=== PATIENT | female | born 1950 | race Caucasian/White ===

== ENCOUNTER 2016-05-22 15:41 | Emergency (ER) | payer OTHER ==
[~2016-05-22 15:41] MED LIST: /ONDA4TA PO; ALLE180T33 PO; ALRE0.5S OU; ATEN50TA2 PO; ATIV0.5T PO; BACLOFEN PO; BUME2TAB; CALC1CAP31 PO; CALCCHW12 PO; CARAFATE PO; CENTTAB36 PO; COMMENT; DOCU240C PO; EX-L5TAB; FERR325T; FERR325T3 PO; FLAX SEED; INSULIN LANTUS SQ; LACTOBACILLUS; LEVA500T; LEVOTAB10 PO; LORAPOW30; MAG CITRATE PO; MAGN250T; NITR4TASL SL; PERC5TAB8; POTA20TA2 PO; PRED1TA; PRIL20CA PO; REST0.05 OU; SALI0.653; SIMV40TA2 PO; SYNT50TA PO; SYST0.4D2 OU; SYSTSOL11 OU; THERGRAN; TRAM50TA2 PO; TRAMADOL; TRAZ100T4 PO; VENL75TA2 PO; VESI10TA PO; VICTOZA SQ; VIT D2 PO; VITAMIN C; [UNRECOGNIZED DRUG - OTHER] PO
[2016-05-22] MEDS ORDERED: NITROGLYCERIN 0.4 MG SUBL TABLET As Ordered ONE (16:51)
[2016-05-22] MEDS ORDERED: ASPIRIN 81 MG CHEW TABLET As Ordered ONE (16:51)
[2016-05-22 17:11] LABS: ANION GAP 7 MEQ/L (8-16); BLOOD UREA NITROGEN 18 MG/DL (7-18); CALCIUM LEVEL 9.1 MG/DL (8.8-10.2); CARBON DIOXIDE LEVEL 31 MEQ/L (21-32); CHLORIDE LEVEL 104 MEQ/L (98-107); CREATININE FOR GFR 1.36 MG/DL (0.55-1.02); GLOMERULAR FILTRATION RATE 41.7 (>45); GLUCOSE, FASTING 188 MG/DL (80-110); SODIUM LEVEL 142 MEQ/L (136-145)
--- NOTE | 2016-05-22 17:17 | REP ---
Clinical: Acute chest pain . Comparison: 02/15/2012 . Technique: PA and lateral. Findings: The mediastinum and cardiac silhouette are normal. The lung rosales are clear and without acute consolidation, effusion, or pneumothorax. The skeletal structures are intact and normal. Impression: 1. No acute cardiopulmonary process. Signed by Joe Perez MD 05/22/2016 05:08 P
[2016-05-22 17:44] LABS: MEAN CORPUSCULAR HEMOGLOBIN 33.4 pg (27.0-33.0); MEAN CORPUSCULAR VOLUME 95.5 fl (80.0-96.0); PLATELET COUNT, AUTOMATED 221 k/mm3 (150-450); RED CELL DISTRIBUTION WIDTH 14.1 % (11.5-14.5); WHITE BLOOD COUNT 7.5 K/mm3 (4.0-10.0)
[2016-05-22 17:53] LABS: BASOPHILS 1 % (0-4); EOSINOPHILS 6 % (0-5)
--- NOTE | 2016-05-22 20:25 | ECGEPIP ---
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
[2016-05-22] MEDS ORDERED: NITROFURANTOIN (MACROBID) 100 MG CAP As Ordered ONE (22:05)
--- NOTE | 2016-05-22 23:08 | EDDOCDS ---
Physician Documentation [facility] Name: Ellyn Ambrocio Age: 66 yrs Sex: Female : 1950 Arrival Date: 05/22/2016 Time: 15:41 Bed OBSERVATION Private MD: Marlon Crooks E. Disposition: 05/22/16 22:41 Discharged to Home/Self Care. Impression: Urinary tract infection, site not specified, Chest pain, unspecified. - Condition is Stable. - Discharge Instructions: Nonspecific Chest Pain, Urinary Tract Infection. - Prescriptions for Macrobid 100 mg Oral Capsule - take 100 milligrams by ORAL route every 12 hours for 7 days; 14 capsule. - Medication Reconciliation, Local Pharmacy Hours form. - Follow up: Marlon Crooks; When: 2 - 3 days; Reason: Recheck today's complaints. Follow up: Joe Jackson; When: 2 - 3 days; Reason: Recheck today's complaints. - Problem is new. - Symptoms are resolved. - Notes: You were seen in the ED for burining on urination concerning for urinary tract infection. You may take the antibiotics as written. You also mentioned chest pain. Bloodwork along with EKG of the heart and chest Xray showed no acute findings at this time. 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
Return to the ED for any return of chest pain, trouble breathing, lightheadedness, loss of consciousness or any other concerns. Historical: - Allergies: NSAIDS; IV Dye; Biaxin; Cipro IV; PENICILLINS; Codeine Sulfate; SULFA (SULFONAMIDES); Latex; Prednisone; Levaquin; Clindamycin; Lianne 128; - Home Meds: 1. Ativan 0.5 mg Oral tab 1 tab 3 times per day (Last dose: Unknown) 2. Bumex 2 mg Oral tab 1 tab 2 times per day (Last dose: Unknown) 3. aspirin 81 mg Oral tab 1 tab once daily (Last dose: Unknown) 4. flaxseed oil 1,000 mg oral cap daily (Last dose: Unknown) 5. Acidophilus 1200 Oral cap daily (Last dose: Unknown) 6. Rocaltrol 0.5 mcg Oral cap 1 cap once daily (Last dose: Unknown) 7. simvastatin 40 mg Oral tab 1 tab once daily (Last dose: Unknown) 8. cranberry 500 mg oral cap daily (Last dose: Unknown) 9. Jasmin 180 mg Oral tab 1 tab once daily (Last dose: Unknown) 10. Nasacort AQ 55 mcg Nasal spra 1 spray once daily (Last dose: Unknown) 11. Restasis 0.05 % ophthalmic dpet 1 drop every 12 hours (Last dose: Unknown) 12. Alrex 0.2 % ophthalmic drps 1 drop 4 times per day (Last dose: Unknown) 13. Zofran (as hydrochloride) 4 mg Oral tab 4 mg every 12 hours (Last dose: Unknown) 14. Xyzal 5 mg oral tab 2 tab nightly (Last dose: Unknown) 15. Combivent 18-103 mcg/actuation Inhl aero 2 puffs 4 times per day (Last dose: Unknown) 16. trazodone 100 mg Oral tab 2 tabs 2 times per day (Last dose: Unknown) 17. Synthroid 137 mcg Oral tab 1 tab once daily (Last dose: Unknown) 18. Lantus 25 units AM 90 units PM Sub-Q soln (Last dose: Unknown) 19. Prilosec 40 mg Oral cpDR 1 cap once daily (Last dose: Unknown) 20. Victoza 3-Solis 0.6 mg/0.1 mL (18 mg/3 mL) subcutaneous pnij 0.2 mL once daily (Last dose: Unknown) 21. tramadol 50 mg Oral tab 1 tab every 6 hours (Last dose: Unknown) 22. Vesicare 10 mg oral tab 1 tab once daily (Last dose: Unknown) 23. atenolol 50 mg Oral tab 1 tab once daily (Last dose: Unknown) 24. Effexor 75 mg Oral tab 1 tab 3 times per day (Last dose: Unknown) - PMHx: Depression; Anxiety; AO; Fibromyalgia; GERD; Hypothyroidism; ESRD III; Hypertension; Hypercholesterolemia; Diabetes - IDDM: uncontrolled; umbilical hernia; probable meniere's disease; Sleep Apnea w/ BiPap; Fatty Liver, Non-alchoholic; hepatomegally; Obesity; - PSHx: Hysterectomy; laminectomy L3-4, 4-5; Oophorectomy- bilateral; Tonsillectomy; Cholecystectomy; right and left knee replacement; Colonoscopy; - Social history: Smoking status: Patient states was never smoker of tobacco. No barriers to communication noted, Speaks appropriately for age. - Family history: No immediate family members are acutely ill. - : The pt / caregiver states he / she is not on anticoagulants. Home medication list is obtained from the patient. - Exposure Risk Screening:: None identified. Vital Signs: 05/22 15:44 BP 157 / 85 RA Sitting (auto/reg); Pulse 75; Resp 18; Temp 97.5(O); Pulse Ox 96% on jrd R/A; Weight 151.95 kg / 334.99 lbs (R); Height 5 ft. 8 in. (172.72 cm) (R); Pain 8/10; 16:01 BP 135 / 63 (auto/); lf1 16:04 Pulse 72 MON; Pulse Ox 96% ; lf1 16:16 BP 131 / 60 (auto/); lf1 16:16 Pulse 70 MON; Pulse Ox 91% ; lf1 16:31 BP 128 / 60 (auto/); lf1 16:31 Pulse 70 MON; Pulse Ox 91% ; lf1 16:46 BP 149 / 73 (auto/); lf1 16:46 Pulse 68 MON; Pulse Ox 91% ; lf1 16:54 BP 143 / 67 (auto/); lf1 16:54 Pulse 66 MON; Resp 16; Pulse Ox 91% ; Pain 7/10; lf1 17:16 BP 123 / 59 (auto/); lf1 17:16 Pulse 68 MON; Pulse Ox 93% ; lf1 17:17 BP 123 / 58 (auto/); lf1 17:17 Pulse 68 MON; Resp 16; Pulse Ox 93% ; lf1 17:20 BP 125 / 59; Pulse 68; Pain 4/10; lf1 17:30 Pulse 66 MON; Pulse Ox 92% ; lf1 17:31 BP 126 / 60 (auto/); lf1 17:46 BP 137 / 64 (auto/); lf1 17:46 Pulse 66 MON; Pulse Ox 89% on R/A; lf1 17:54 Pulse 66 MON; Pulse Ox 94% on 2 lpm NC; lf1 19:35 BP 139 / 70 (auto/); mv5 19:35 Pulse 76 MON; mv5 20:05 BP 132 / 60 (auto/); mv5 20:05 Pulse 68 MON; Pulse Ox 96% ; mv5 20:35 BP 128 / 58 (auto/); mv5 20:35 Pulse 68 MON; Pulse Ox 96% ; mv5 21:05 BP 157 / 69 (auto/); mv5 21:05 Pulse 68 MON; Pulse Ox 98% ; mv5 22:09 BP 156 / 74 (auto/); mv5 22:09 Pulse 70 MON; Pulse Ox 92% ; mv5 22:55 Pulse 70 MON; Resp 16; Temp 98.9(O); Pulse Ox 97% ; mv5 15:44 Body Mass Index 50.94 (151.95 kg, 172.72 cm) jrd 17:17 Back pain 7 chest pain 4 lf1 MDM: 15:56 ECG WITH READING ER PHYS+CARDIAG ordered. EDMS 16:12 [place]man/Pulse Ox/q 30 min VS ordered. br1 16:12 IV Saline Lock ordered. br1 16:12 Rhythm Strip to chart ordered. br1 16:12 Undress patient appropriately for examination ordered. br1 16:12 Aspirin 324 mg PO once ordered. br1 16:13 Basic Metabolic Profile Ordered. EDMS 16:13 CBC with Diff Ordered. EDMS 16:13 Cardiac Injury Profile Ordered. EDMS 16:13 Troponin Ordered. EDMS 16:13 Urinalysis Ordered. EDMS 16:13 Urine Culture Ordered. EDMS 16:13 Chest, 2 View (pa\E\lat) Ordered. EDMS 16:22 Nitrostat 0.4 mg Sublingual once ordered. br1 16:39 Financial registration complete. gjb 17:05 [facility] Payment Agreement was scanned into [employer] and attached to record. gjb 17:35 Basic Metabolic Profile Reviewed. br1 17:35 Cardiac Injury Profile Reviewed. br1 17:35 Troponin Reviewed. br1 17:47 DIFFERENTIAL NO CHARGE Ordered. EDMS 17:57 CBC with Diff Reviewed. br1 17:57 PLATELET ESTIMATE Reviewed. br1 17:57 Chest, 2 View (pa\E\lat) Reviewed. br1 17:58 Repeat EKG (put time details section) ordered. br1 17:58 Redraw CIP &Troponin (put time in details section) ordered. br1 17:58 Admit to ED Observation status ordered. br1 18:00 Admit to ED Observation status complete. mt4 18:07 ECG WITH READING ER PHYS ordered. EDMS 18:07 CARDIAC MARKER PANEL Ordered. EDMS 18:13 Redraw CIP &Troponin (put time in details section) complete. mt4 18:13 Repeat EKG (put time details section) complete. mt4 21:57 Urinalysis Reviewed. br1 21:57 EKG-ADULT Reviewed. br1 21:58 Nitrofurantoin 100 mg PO once ordered. br1 22:21 CARDIAC MARKER PANEL Reviewed. br1 Administered Medications: 16:58 Drug: Aspirin 324 mg [aspirin 81 mg chewable tablet (4 tabs)] Route: PO; lf1 16:58 Drug: Nitrostat 0.4 mg [Nitrostat 0.4 mg sublingual tablet (1 tabs)] {Note: 143/67 HR lf1 70.} Route: Sublingual; 17:20 Follow up: BP 125 / 59; Pulse 68 bpm; Pain 4/10 Adult; Response: No Adverse Reaction; lf1 No significant change. 22:10 Drug: Nitrofurantoin 100 mg [nitrofurantoin macrocrystal 50 mg capsule (2 caps)] Route: mv5 PO; 22:59 Follow up: Response: No Adverse Reaction mv5 Signatures: Dispatcher [employer] EDMS Wolfgang Malik MD MD br1 Mimi Ashley mt4 Rudy Traylor, RN RN ml6 Kay Bondsb Anupama Christina RN RN mv5 Mayte Nguyen RN lf1 The chart was reviewed and I authenticate all verbal orders and agree with the evaluation and treatment provided.Attachments: 17:05 [facility] Payment Agreement beth [email or web address]
--- NOTE | 2016-05-22 23:08 | EDDOCDS ---
[facility] Name: Ellyn Ambrocio Age: 66 yrs Sex: Female : 1950 Arrival Date: 05/22/2016 Time: 15:41 Bed OBSERVATION Private MD: Marlon Crooks E. Diagnosis: Urinary tract infection, site not specified;Chest pain, unspecified Presentation: 05/22 15:56 Presenting complaint: Patient states: states chest pain and upper back pain since ml6 . Aspirin was not taken prior to arrival. Adult Sepsis Screening: The patient does not have new or worsening altered mentation. Patient's respiratory rate is less than 22. Systolic blood pressure is greater than 100. Patient has a qSOFA score of 0- Negative Sepsis Screen. Suicide/Homicide risk assessment- the patient denies having any suicidal and/or homicidal ideations and does not present with any other emotional, behavioral or mental health complaints. Status: Patient is not a mechanical service technician or dependent. Transition of care: patient was not received from another setting of care. 15:56 Acuity: JOSELO Level 3 ml6 15:56 Method Of Arrival: Walkin/Carried/Asstd ml6 Triage Assessment: 15:56 General: Appears in no apparent distress, Behavior is anxious. Pain: Location: back and ml6 chest Pain currently is 6 out of 10 on a pain scale. Pain does not radiate. Quality of pain is described as sharp, Pain began 2-3 days ago Is continuous. HIV screening NA for this visit Offered previously. Cardiovascular: Capillary refill < 3 seconds is brisk in bilateral fingers toes Heart tones S1 S2 present Edema is absent. Pulses are all present. Chest pain is described as mild, quality is stabbing, is located in anterior chest wall radiates back episodes are continuous began 3-4 days. Respiratory: No deficits noted. Historical: - Allergies: NSAIDS; IV Dye; Biaxin; Cipro IV; PENICILLINS; Codeine Sulfate; SULFA (SULFONAMIDES); Latex; Prednisone; Levaquin; Clindamycin; Lianne 128; - Home Meds: 1. Ativan 0.5 mg Oral tab 1 tab 3 times per day (Last dose: Unknown) 2. Bumex 2 mg Oral tab 1 tab 2 times per day (Last dose: Unknown) 3. aspirin 81 mg Oral tab 1 tab once daily (Last dose: Unknown) 4. flaxseed oil 1,000 mg oral cap daily (Last dose: Unknown) 5. Acidophilus 1200 Oral cap daily (Last dose: Unknown) 6. Rocaltrol 0.5 mcg Oral cap 1 cap once daily (Last dose: Unknown) 7. simvastatin 40 mg Oral tab 1 tab once daily (Last dose: Unknown) 8. cranberry 500 mg oral cap daily (Last dose: Unknown) 9. Jasmin 180 mg Oral tab 1 tab once daily (Last dose: Unknown) 10. Nasacort AQ 55 mcg Nasal spra 1 spray once daily (Last dose: Unknown) 11. Restasis 0.05 % ophthalmic dpet 1 drop every 12 hours (Last dose: Unknown) 12. Alrex 0.2 % ophthalmic drps 1 drop 4 times per day (Last dose: Unknown) 13. Zofran (as hydrochloride) 4 mg Oral tab 4 mg every 12 hours (Last dose: Unknown) 14. Xyzal 5 mg oral tab 2 tab nightly (Last dose: Unknown) 15. Combivent 18-103 mcg/actuation Inhl aero 2 puffs 4 times per day (Last dose: Unknown) 16. trazodone 100 mg Oral tab 2 tabs 2 times per day (Last dose: Unknown) 17. Synthroid 137 mcg Oral tab 1 tab once daily (Last dose: Unknown) 18. Lantus 25 units AM 90 units PM Sub-Q soln (Last dose: Unknown) 19. Prilosec 40 mg Oral cpDR 1 cap once daily (Last dose: Unknown) 20. Victoza 3-Solis 0.6 mg/0.1 mL (18 mg/3 mL) subcutaneous pnij 0.2 mL once daily (Last dose: Unknown) 21. tramadol 50 mg Oral tab 1 tab every 6 hours (Last dose: Unknown) 22. Vesicare 10 mg oral tab 1 tab once daily (Last dose: Unknown) 23. atenolol 50 mg Oral tab 1 tab once daily (Last dose: Unknown) 24. Effexor 75 mg Oral tab 1 tab 3 times per day (Last dose: Unknown) - PMHx: Depression; Anxiety; AO; Fibromyalgia; GERD; Hypothyroidism; ESRD III; Hypertension; Hypercholesterolemia; Diabetes - IDDM: uncontrolled; umbilical hernia; probable meniere's disease; Sleep Apnea w/ BiPap; Fatty Liver, Non-alchoholic; hepatomegally; Obesity; - PSHx: Hysterectomy; laminectomy L3-4, 4-5; Oophorectomy- bilateral; Tonsillectomy; Cholecystectomy; right and left knee replacement; Colonoscopy; - Social history: Smoking status: Patient states was never smoker of tobacco. No barriers to communication noted, Speaks appropriately for age. - Family history: No immediate family members are acutely ill. - : The pt / caregiver states he / she is not on anticoagulants. Home medication list is obtained from the patient. - Exposure Risk Screening:: None identified. Screenin:54 Screening information is obtained from the patient. Fall risk: No risks identified. lf1 Assistance ADL's: requires no assistance with activities of daily living. Abuse/DV Screen: The patient / caregiver reports he/she is:. Nutritional screening: No deficits noted. Advance Directives: Currently, there is no health care proxy. home support is adequate. Assessment: 16:58 Adult Sepsis Screening: The patient does not have new or worsening altered mentation. lf1 Patient's respiratory rate is less than 22. Systolic blood pressure is greater than 100. Patient has a qSOFA score of 0- Negative Sepsis Screen. General: Appears in no apparent distress, comfortable, obese, Behavior is cooperative. General: Pt reports back pain is chronic and 7/10 Chest pain began yesterday while coughing and is currently 4/10. Pain: Location: chest and back Pain currently is 7 out of 10 on a pain scale. Neurological: Level of Consciousness is awake, alert, obeys commands, Oriented to person, place, time. Cardiovascular: Rhythm is regular. Respiratory: Respiratory effort is even, unlabored, Respiratory pattern is regular, Breath sounds are diminished Difficult to auscultate due to body habitus Reports cough that is. GI: Reports constipation, diarrhea, lower abdominal pain, upper abdominal pain, chronic abdominal pain and intermittent constipation. : Reports burning with urination urgency urinary frequency vaginal itching possible yeast infection. 17:21 General: Appears in no apparent distress, comfortable, obese, Behavior is cooperative. lf1 Pain: Location: chest and back Pain currently is 4 out of 10 on a pain scale. Neurological: Level of Consciousness is awake, alert. Respiratory: Respiratory effort is even, unlabored. GI: Reports lower abdominal pain, upper abdominal pain. : Reports burning with urination urgency urinary frequency vaginal itching. Derm: Skin is normal. 17:54 General: Appears in no apparent distress, comfortable, obese, Behavior is cooperative, lf1 drowsy. Pain: Location: chest and back. Neurological: Level of Consciousness is awake. Respiratory: Respiratory effort is even, unlabored, Pt O2 sats 88-91% on RA pt. reports that she uses a CPAP at home , provider aware. O2 at 2L NC applied. GI: Abdomen is obese. 19:43 General: Appears in no apparent distress, comfortable, Behavior is cooperative, mv5 pleasant. Neurological: Level of Consciousness is awake, alert, Oriented to person, place, time. Cardiovascular: Rhythm is regular. Respiratory: Airway is patent Respiratory effort is even, unlabored, Respiratory pattern is regular. Derm: Skin is pink, warm & dry. 20:43 General: Appears in no apparent distress, comfortable. Respiratory: Airway is patent mv5 Respiratory effort is even, unlabored, Respiratory pattern is regular. Derm: Skin is pink, warm & dry. 21:42 General: Appears in no apparent distress. General: Awaiting repeat EKG.. Neurological: mv5 Level of Consciousness is awake, alert, Oriented to person, place, time. Respiratory: Airway is patent Respiratory effort is even, unlabored, Respiratory pattern is regular. Derm: Skin is pink, warm & dry. 21:45 Cardiovascular: Rhythm is regular. mv5 22:21 General: Appears in no apparent distress, meds as ordered, EKG repeated as ordered. . mv5 Neurological: Level of Consciousness is awake, alert, Oriented to person, place, time. Respiratory: Airway is patent Respiratory effort is even, unlabored, Respiratory pattern is regular. Derm: Skin is pink, warm & dry. 23:03 General: Appears in no apparent distress, comfortable, Behavior is cooperative, mv5 pleasant. Pain: Denies pain. Cardiovascular: No deficits noted. Respiratory: No deficits noted. Derm: Skin is pink, warm & dry. Vital Signs: 15:44 BP 157 / 85 RA Sitting (auto/reg); Pulse 75; Resp 18; Temp 97.5(O); Pulse Ox 96% on jrd R/A; Weight 151.95 kg (R); Height 5 ft. 8 in. (172.72 cm) (R); Pain 8/10; 16:01 BP 135 / 63 (auto/); lf1 16:04 Pulse 72 MON; Pulse Ox 96% ; lf1 16:16 BP 131 / 60 (auto/); lf1 16:16 Pulse 70 MON; Pulse Ox 91% ; lf1 16:31 BP 128 / 60 (auto/); lf1 16:31 Pulse 70 MON; Pulse Ox 91% ; lf1 16:46 BP 149 / 73 (auto/); lf1 16:46 Pulse 68 MON; Pulse Ox 91% ; lf1 16:54 BP 143 / 67 (auto/); lf1 16:54 Pulse 66 MON; Resp 16; Pulse Ox 91% ; Pain 7/10; lf1 17:16 BP 123 / 59 (auto/); lf1 17:16 Pulse 68 MON; Pulse Ox 93% ; lf1 17:17 BP 123 / 58 (auto/); lf1 17:17 Pulse 68 MON; Resp 16; Pulse Ox 93% ; lf1 17:20 BP 125 / 59; Pulse 68; Pain 4/10; lf1 17:30 Pulse 66 MON; Pulse Ox 92% ; lf1 17:31 BP 126 / 60 (auto/); lf1 17:46 BP 137 / 64 (auto/); lf1 17:46 Pulse 66 MON; Pulse Ox 89% on R/A; lf1 17:54 Pulse 66 MON; Pulse Ox 94% on 2 lpm NC; lf1 19:35 BP 139 / 70 (auto/); mv5 19:35 Pulse 76 MON; mv5 20:05 BP 132 / 60 (auto/); mv5 20:05 Pulse 68 MON; Pulse Ox 96% ; mv5 20:35 BP 128 / 58 (auto/); mv5 20:35 Pulse 68 MON; Pulse Ox 96% ; mv5 21:05 BP 157 / 69 (auto/); mv5 21:05 Pulse 68 MON; Pulse Ox 98% ; mv5 22:09 BP 156 / 74 (auto/); mv5 22:09 Pulse 70 MON; Pulse Ox 92% ; mv5 22:55 Pulse 70 MON; Resp 16; Temp 98.9(O); Pulse Ox 97% ; mv5 15:44 Body Mass Index 50.94 (151.95 kg, 172.72 cm) jrd 17:17 Back pain 7 chest pain 4 lf1 Vitals: 15:44 RN notified that patient meets Red Flag criteria. jrd 23:07 Log In Time: May 22, 2016 at 15:50. mv5 ED Course: 15:43 Patient visited by Mac Jalloh PCA. jrd 15:43 Patient moved to Waiting jrd 15:44 Marlon Crooks is Private Physician. jrd 15:46 Patient visited by Mac Jalloh PCA. jrd 15:46 Patient moved to Pre RCE jrd 15:51 Patient moved to [facility] 15:56 Triage Initiated ml6 16:00 musician instrumental on. Pulse ox on. NIBP on. lf1 16:00 Inserted saline lock: 20 gauge in left antecubital area and blood collected. The lf1 patient tolerated the procedure well. Labs drawn. (by ED staff). Sent per order to lab. 16:02 Wolfgang Malik MD is Attending Physician. br1 16:03 Patient visited by José Miguel Marquez. jml1 16:03 EKG done. (by ED staff). Reviewed by Wolfgang Malik MD. jml1 16:11 Patient visited by Wolfgang Malik MD. br1 16:44 Patient visited by Leonardo Langford PCA. jlf 17:02 Patient visited by Mayte Nguyen,NHI. lf1 17:05 [facility] Payment Agreement was scanned into [employer] and attached to record. gjb 17:22 Patient visited by Mayte Nguyen,NHI. lf1 17:44 Chest, 2 View (pa\E\lat) Returned. EDMS 17:57 Patient visited by Mayte Nguyen RN. lf1 18:00 Patient moved to OBSERVATION mt4 19:18 Anupama Christina,RN is Primary Nurse. mv5 19:44 The patient / caregiver is instructed regarding the plan of care and ED course. mv5 21:07 EKG-ADULT Returned. EDMS 22:18 EKG done. (by ED staff). Reviewed by Wolfgang Malik MD. jmv 22:19 Patient visited by Lorenzo Scott PCA. jmv 22:41 Marlon Crooks is Referral Physician. br1 22:41 Joe Jackson is Referral Physician. br1 22:55 Discontinued intact, bleeding controlled, pressure dressing applied, No mv5 redness/swelling at site. No procedures done that require assistance. Administered Medications: 16:58 Drug: Aspirin 324 mg [aspirin 81 mg chewable tablet (4 tabs)] Route: PO; lf1 16:58 Drug: Nitrostat 0.4 mg [Nitrostat 0.4 mg sublingual tablet (1 tabs)] {Note: 143/67 HR lf1 70.} Route: Sublingual; 17:20 Follow up: BP 125 / 59; Pulse 68 bpm; Pain 4/10 Adult; Response: No Adverse Reaction; lf1 No significant change. 22:10 Drug: Nitrofurantoin 100 mg [nitrofurantoin macrocrystal 50 mg capsule (2 caps)] Route: mv5 PO; 22:59 Follow up: Response: No Adverse Reaction mv5 Order Results: Lab Order: Basic Metabolic Profile; SPEC'M 05/22/16 16:40 Test: GLUCOSE, FASTING; Value: 188; Range: 80-110; Abnormal: Above high normal; Units: MG/DL; Status: F Test: BLOOD UREA NITROGEN; Value: 18; Range: 7-18; Units: MG/DL; Status: F Test: CREATININE FOR GFR; Value: 1.36; Range: 0.55-1.02; Abnormal: Above high normal; Units: MG/DL; Status: F Test: GLOMERULAR FILTRATION RATE; Value: 41.7; Range: >45; Abnormal: Below low normal; Status: F Test: SODIUM LEVEL; Value: 142; Range: 136-145; Units: MEQ/L; Status: F Test: POTASSIUM SERUM; Value: 4.0; Range: 3.5-5.1; Units: MEQ/L; Status: F Test: CHLORIDE LEVEL; Value: 104; Range: 98-107; Units: MEQ/L; Status: F Test: CARBON DIOXIDE LEVEL; Value: 31; Range: 21-32; Units: MEQ/L; Status: F Test: ANION GAP; Value: 7; Range: 8-16; Abnormal: Below low normal; Units: MEQ/L; Status: F Test: CALCIUM LEVEL; Value: 9.1; Range: 8.8-10.2; Units: MG/DL; Status: F Test Note: ; Units are mL/min/1.73 m2 Chronic Kidney Disease Staging per NKF: Stage I & II GFR >=60 Normal to Mildly Decreased Stage III GFR 30-59 Moderately Decreased Stage IV GFR 15-29 Severely Decreased Stage V GFR <15 Very Little GFR Left ESRD GFR <15 on 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 Lab Order: CBC with Diff; SPEC'M 05/22/16 16:40 Test: WHITE BLOOD COUNT; Value: 7.5; Range: 4.0-10.0; Units: K/mm3; Status: F Test: RED BLOOD COUNT; Value: 4.17; Range: 4.00-5.40; Units: M/mm3; Status: F Test: HEMOGLOBIN; Value: 13.9; Range: 12.0-16.0; Units: g/dl; Status: F Test: HEMATOCRIT; Value: 39.8; Range: 36.0-47.0; Units: %; Status: F Test: MEAN CORPUSCULAR VOLUME; Value: 95.5; Range: 80.0-96.0; Units: fl; Status: F Test: MEAN CORPUSCULAR HEMOGLOBIN; Value: 33.4; Range: 27.0-33.0; Abnormal: Above high normal; Units: pg; Status: F Test: MEAN CORPUSCULAR HGB CONC; Value: 35.0; Range: 32.0-36.5; Units: g/dl; Status: F Test: RED CELL DISTRIBUTION WIDTH; Value: 14.1; Range: 11.5-14.5; Units: %; Status: F Test: PLATELET COUNT, AUTOMATED; Value: 221; Range: 150-450; Units: k/mm3; Status: F Test: NEUTROPHILS; Value: 57; Range: 35-75; Units: %; Status: F Test: LYMPHOCYTES; Value: 31; Range: 16-52; Units: %; Status: F Test: MONOCYTES; Value: 5; Range: 0-8; Units: %; Status: F Test: EOSINOPHILS; Value: 6; Range: 0-5; Abnormal: Above high normal; Units: %; Status: F Test: BASOPHILS; Value: 1; Range: 0-4; Units: %; Status: F Test: RBC MORPHOLOGY; Value: NORMAL; Status: F Lab Order: Cardiac Injury Profile; SPEC'05/22/16 16:40 Test: CPK CREATINE PHOSPHOKINASE; Value: 84; Range: 26-192; Units: U/L; Status: F Test: CK-MB VALUE MASS; Value: 2.4; Range: 0.0-3.6; Units: NG/ML; Status: F Test: MB/CK RELATIVE INDEX; Value: 2.85; Range: < OR =4; Status: F Test Note: ; DIAGNOSIS CRITERIA MMB ng/ml Relative Index (RI) NON-AMI < or = 5 N/A VALLE ZONE > 5 < or = 4 AMI > 5 > 4 Lab Order: Troponin; SPEC'M 05/22/16 16:40 Test: TROPONIN I; Value: < 0.02; Range: < 0.10; Units: NG/ML; Status: F Test Note: ; Troponin I Reference Interval for [employer] LOCI: 99th Percentile= 0.00-0.045 ng/ml Risk Stratification: <= 0.10 ng/ml Decreased Risk for Adverse Clinical Events. 0.10-1.50 ng/ml Increased Risk for Adverse Clinical Events. Evaluation of additional criterion and/or repeat testing in 2-6 hours is suggested to rule out myocardial damage. >= 1.50 ng/ml Indicative of Myocardial Injury. Lab Order: Urinalysis; SPEC'M 05/22/16 16:33 Test: APPEARANCE, URINE; Value: HAZY; Range: CLEAR; Status: F Test: COLOR, URINE; Value: YELLOW; Range: YELLOW; Status: F Test: PH,URINE; Value: 5.0; Range: 5.0-9.0; Units: UNITS; Status: F Test: SPECIFIC GRAVITY URINE AUTO; Value: 1.028; Range: 1.002-1.035; Status: F Test: PROTEIN, URINE AUTO; Value: 1+; Range: NEGATIVE; Abnormal: Above high normal; Units: mg/dL; Status: F Test: GLUCOSE, URINE (UA) AUTO; Value: NEGATIVE; Range: NEGATIVE; Units: mg/dL; Status: F Test: KETONE, URINE AUTO; Value: NEGATIVE; Range: NEGATIVE; Units: mg/dL; Status: F Test: UROBILINOGEN, URINE AUTO; Value: 0.2; Range: 0.0-2.0; Units: mg/dL; Status: F Test: BILIRUBIN, URINE AUTO; Value: NEGATIVE; Range: NEGATIVE; Status: F Test: NITRITE, URINE AUTO; Value: NEGATIVE; Range: NEGATIVE; Status: F Test: LEUKOCYTE ESTERASE, URINE AUTO; Value: TRACE; Range: NEGATIVE; Abnormal: Above high normal; Status: F Test: BLOOD, URINE BLOOD; Value: NEGATIVE; Range: NEGATIVE; Status: F Test: WBC, URINE AUTO; Value: 12; Range: 0-3; Abnormal: Above high normal; Units: /HPF; Status: F Test: RBC, URINE AUTO; Value: 2; Range: 0-3; Units: /HPF; Status: F Test: BACTERIA, URINE AUTO; Value: 1+; Range: NEGATIVE; Abnormal: Above high normal; Status: F Test: SQUAMOUS EPITHELIAL CELL UR AU; Value: 0; Range: 0-6; Units: /HPF; Status: F Test: MUCUS, URINE; Value: SMALL; Range: NEGATIVE; Status: F Test: HYALINE CAST, URINE AUTO; Value: 2; Range: 0-1; Units: /LPF; Status: F Lab Order: PLATELET ESTIMATE; SPEC' 05/22/16 16:40 Test: PLATELET ESTIMATE; Value: NORMAL; Range: NORMAL; Status: F Lab Order: CARDIAC MARKER PANEL; [facility]' 05/22/16 21:22 Test: CPK CREATINE PHOSPHOKINASE; Value: 86; Range: 26-192; Units: U/L; Status: F Test: CK-MB VALUE MASS; Value: 2.5; Range: 0.0-3.6; Units: NG/ML; Status: F Test: MB/CK RELATIVE INDEX; Value: 2.90; Range: < OR =4; Status: F Test: TROPONIN I; Value: < 0.02; Range: < 0.10; Units: NG/ML; Status: F Test Note: ; DIAGNOSIS CRITERIA MMB ng/ml Relative Index (RI) NON-AMI < or = 5 N/A VALLE ZONE > 5 < or = 4 AMI > 5 > 4 Radiology Order: EKG-ADULT Test: EKG-ADULT REASON FOR EXAMINATION: Chest Pain; Stationary ECG Study; [facility] - ED; ; Test Date: 2016-05-22; Pat Name: ELLYN CABALLERODannie Department:; Room: -; Gender: F 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; : 1950 Requested By: Kristin Ford; Order Number: [id number] Reading MD: Kristin Ford; Measurements; Intervals [place]; Rate: 71 P: -65; PA: 154 QRS: -12; QRSD: 106 T: 51; QT: 382; QTc: 418; Interpretive Statements; ECTOPIC ATRIAL RHYTHM; MINIMAL VOLTAGE CRITERIA FOR LVH, CONSIDER NORMAL VARIANT; SEPTAL MYOCARDIAL INFARCTION, OF INDETERMINATE AGE; ; Electronically Signed On 05-22-2016 20:25:01 EST by Kristin Ford; Radiology Order: Chest, 2 View (pa\E\lat) Test: Chest, 2 View (pa\E\lat) REASON FOR EXAMINATION: Chest Pain; Clinical: Acute chest pain .; ; Comparison: 02/15/2012 .; ; Technique: PA and lateral.; ; Findings:; The mediastinum and cardiac silhouette are normal. The lung rosales are clear and; without acute consolidation, effusion, or pneumothorax. The skeletal structures; are intact and normal.; ; Impression:; 1. No acute cardiopulmonary process.; ; ; Signed by; Joe Perez MD 05/22/2016 05:08 P; Outcome: 22:41 Discharge ordered by Provider. br1 22:55 Discharge Assessment: Patient awake, alert and oriented x 3. No cognitive and/or mv5 functional deficits noted. Patient verbalized understanding of disposition instructions. patient administered narcotics - no. 22:55 The following High Risk Discharge criteria are identified: None. Discharged to home mv5 ambulatory. Condition: stable. Demonstrated understanding of Pt was receptive of discharge instructions/ teaching. Prescriptions given X 1. 22:55 No special radiology studies were completed. Property sent home with patient. mv5 23:07 Patient left the ED. mv5 Signatures: Dispatcher [employer] EDMS Vale Santacruz, RN RN Mayte XiongRN RN lf1 Wolfgang Malik MD MD br1 Mimi Ashley tx4 Rudy Traylor RN RN ml6 José Miguel Marquez Jordain, SHOW HORSE DRIVER SHOW HORSE DRIVER jlf Mac Jalloh, SHOW HORSE DRIVER SHOW HORSE DRIVER Kay Lovell Jose, SHOW HORSE DRIVER SHOW HORSE DRIVER Anupama Loza,RN RN mv5 Corrections: (The following items were deleted from the chart) 17:02 15:50 musician instrumental on. Pulse ox on. NIBP on. lf1 lf1 MTDD
--- NOTE | 2016-05-24 08:21 | ECGEPIP ---
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
--- NOTE | 2016-05-25 00:08 | EDDOCDS ---
Physician Documentation [facility] Name: Ellyn Ambrocio Age: 66 yrs Sex: Female : 1950 Arrival Date: 05/22/2016 Time: 15:41 Bed OBSERVATION Private MD: Marlon Crooks E. Disposition: 05/22/16 22:41 Discharged to Home/Self Care. Impression: Urinary tract infection, site not specified, Chest pain, unspecified. - Condition is Stable. - Discharge Instructions: Nonspecific Chest Pain, Urinary Tract Infection. - Prescriptions for Macrobid 100 mg Oral Capsule - take 100 milligrams by ORAL route every 12 hours for 7 days; 14 capsule. - Medication Reconciliation, Local Pharmacy Hours form. - Follow up: Marlon Crooks; When: 2 - 3 days; Reason: Recheck today's complaints. Follow up: Joe Jackson; When: 2 - 3 days; Reason: Recheck today's complaints. - Problem is new. - Symptoms are resolved. - Notes: You were seen in the ED for burining on urination concerning for urinary tract infection. You may take the antibiotics as written. You also mentioned chest pain. Bloodwork along with EKG of the heart and chest Xray showed no acute findings at this time. You will need to see your primary doctor and your restorative art embalmer within 2-3 days for further follow-up and evaluation - please call these offices in the morning to arrange to be seen.
Return to the ED for any return of chest pain, trouble breathing, lightheadedness, loss of consciousness or any other concerns. Historical: - Allergies: NSAIDS; IV Dye; Biaxin; Cipro IV; PENICILLINS; Codeine Sulfate; SULFA (SULFONAMIDES); Latex; Prednisone; Levaquin; Clindamycin; Lianne 128; - Home Meds: 1. Ativan 0.5 mg Oral tab 1 tab 3 times per day (Last dose: Unknown) 2. Bumex 2 mg Oral tab 1 tab 2 times per day (Last dose: Unknown) 3. aspirin 81 mg Oral tab 1 tab once daily (Last dose: Unknown) 4. flaxseed oil 1,000 mg oral cap daily (Last dose: Unknown) 5. Acidophilus 1200 Oral cap daily (Last dose: Unknown) 6. Rocaltrol 0.5 mcg Oral cap 1 cap once daily (Last dose: Unknown) 7. simvastatin 40 mg Oral tab 1 tab once daily (Last dose: Unknown) 8. cranberry 500 mg oral cap daily (Last dose: Unknown) 9. Jasmin 180 mg Oral tab 1 tab once daily (Last dose: Unknown) 10. Nasacort AQ 55 mcg Nasal spra 1 spray once daily (Last dose: Unknown) 11. Restasis 0.05 % ophthalmic dpet 1 drop every 12 hours (Last dose: Unknown) 12. Alrex 0.2 % ophthalmic drps 1 drop 4 times per day (Last dose: Unknown) 13. Zofran (as hydrochloride) 4 mg Oral tab 4 mg every 12 hours (Last dose: Unknown) 14. Xyzal 5 mg oral tab 2 tab nightly (Last dose: Unknown) 15. Combivent 18-103 mcg/actuation Inhl aero 2 puffs 4 times per day (Last dose: Unknown) 16. trazodone 100 mg Oral tab 2 tabs 2 times per day (Last dose: Unknown) 17. Synthroid 137 mcg Oral tab 1 tab once daily (Last dose: Unknown) 18. Lantus 25 units AM 90 units PM Sub-Q soln (Last dose: Unknown) 19. Prilosec 40 mg Oral cpDR 1 cap once daily (Last dose: Unknown) 20. Victoza 3-Solis 0.6 mg/0.1 mL (18 mg/3 mL) subcutaneous pnij 0.2 mL once daily (Last dose: Unknown) 21. tramadol 50 mg Oral tab 1 tab every 6 hours (Last dose: Unknown) 22. Vesicare 10 mg oral tab 1 tab once daily (Last dose: Unknown) 23. atenolol 50 mg Oral tab 1 tab once daily (Last dose: Unknown) 24. Effexor 75 mg Oral tab 1 tab 3 times per day (Last dose: Unknown) - PMHx: Depression; Anxiety; AO; Fibromyalgia; GERD; Hypothyroidism; ESRD III; Hypertension; Hypercholesterolemia; Diabetes - IDDM: uncontrolled; umbilical hernia; probable meniere's disease; Sleep Apnea w/ BiPap; Fatty Liver, Non-alchoholic; hepatomegally; Obesity; - PSHx: Hysterectomy; laminectomy L3-4, 4-5; Oophorectomy- bilateral; Tonsillectomy; Cholecystectomy; right and left knee replacement; Colonoscopy; - Social history: Smoking status: Patient states was never smoker of tobacco. No barriers to communication noted, Speaks appropriately for age. - Family history: No immediate family members are acutely ill. - : The pt / caregiver states he / she is not on anticoagulants. Home medication list is obtained from the patient. - Exposure Risk Screening:: None identified. Vital Signs: 05/22 15:44 BP 157 / 85 RA Sitting (auto/reg); Pulse 75; Resp 18; Temp 97.5(O); Pulse Ox 96% on jrd R/A; Weight 151.95 kg / 334.99 lbs (R); Height 5 ft. 8 in. (172.72 cm) (R); Pain 8/10; 16:01 BP 135 / 63 (auto/); lf1 16:04 Pulse 72 MON; Pulse Ox 96% ; lf1 16:16 BP 131 / 60 (auto/); lf1 16:16 Pulse 70 MON; Pulse Ox 91% ; lf1 16:31 BP 128 / 60 (auto/); lf1 16:31 Pulse 70 MON; Pulse Ox 91% ; lf1 16:46 BP 149 / 73 (auto/); lf1 16:46 Pulse 68 MON; Pulse Ox 91% ; lf1 16:54 BP 143 / 67 (auto/); lf1 16:54 Pulse 66 MON; Resp 16; Pulse Ox 91% ; Pain 7/10; lf1 17:16 BP 123 / 59 (auto/); lf1 17:16 Pulse 68 MON; Pulse Ox 93% ; lf1 17:17 BP 123 / 58 (auto/); lf1 17:17 Pulse 68 MON; Resp 16; Pulse Ox 93% ; lf1 17:20 BP 125 / 59; Pulse 68; Pain 4/10; lf1 17:30 Pulse 66 MON; Pulse Ox 92% ; lf1 17:31 BP 126 / 60 (auto/); lf1 17:46 BP 137 / 64 (auto/); lf1 17:46 Pulse 66 MON; Pulse Ox 89% on R/A; lf1 17:54 Pulse 66 MON; Pulse Ox 94% on 2 lpm NC; lf1 19:35 BP 139 / 70 (auto/); mv5 19:35 Pulse 76 MON; mv5 20:05 BP 132 / 60 (auto/); mv5 20:05 Pulse 68 MON; Pulse Ox 96% ; mv5 20:35 BP 128 / 58 (auto/); mv5 20:35 Pulse 68 MON; Pulse Ox 96% ; mv5 21:05 BP 157 / 69 (auto/); mv5 21:05 Pulse 68 MON; Pulse Ox 98% ; mv5 22:09 BP 156 / 74 (auto/); mv5 22:09 Pulse 70 MON; Pulse Ox 92% ; mv5 22:55 Pulse 70 MON; Resp 16; Temp 98.9(O); Pulse Ox 97% ; mv5 15:44 Body Mass Index 50.94 (151.95 kg, 172.72 cm) jrd 17:17 Back pain 7 chest pain 4 lf1 MDM: 15:56 ECG WITH READING ER PHYS+CARDIAG ordered. EDMS 16:12 Pasting Machine Operator/Pulse Ox/q 30 min VS ordered. br1 16:12 IV Saline Lock ordered. br1 16:12 Rhythm Strip to chart ordered. br1 16:12 Undress patient appropriately for examination ordered. br1 16:12 Aspirin 324 mg PO once ordered. br1 16:13 Basic Metabolic Profile Ordered. EDMS 16:13 CBC with Diff Ordered. EDMS 16:13 Cardiac Injury Profile Ordered. EDMS 16:13 Troponin Ordered. EDMS 16:13 Urinalysis Ordered. EDMS 16:13 Urine Culture Ordered. EDMS 16:13 Chest, 2 View (pa\E\lat) Ordered. EDMS 16:22 Nitrostat 0.4 mg Sublingual once ordered. br1 16:39 Financial registration complete. gjb 17:05 [facility] Payment Agreement was scanned into [employer] and attached to record. gjb 17:35 Basic Metabolic Profile Reviewed. br1 17:35 Cardiac Injury Profile Reviewed. br1 17:35 Troponin Reviewed. br1 17:47 DIFFERENTIAL NO CHARGE Ordered. EDMS 17:57 CBC with Diff Reviewed. br1 17:57 PLATELET ESTIMATE Reviewed. br1 17:57 Chest, 2 View (pa\E\lat) Reviewed. br1 17:58 Repeat EKG (put time details section) ordered. br1 17:58 Redraw CIP &Troponin (put time in details section) ordered. br1 17:58 Admit to ED Observation status ordered. br1 18:00 Admit to ED Observation status complete. mt4 18:07 ECG WITH READING ER PHYS ordered. EDMS 18:07 CARDIAC MARKER PANEL Ordered. EDMS 18:13 Redraw CIP &Troponin (put time in details section) complete. mt4 18:13 Repeat EKG (put time details section) complete. mt4 21:57 Urinalysis Reviewed. br1 21:57 EKG-ADULT Reviewed. br1 21:58 Nitrofurantoin 100 mg PO once ordered. br1 22:21 CARDIAC MARKER PANEL Reviewed. br1 05/23 09:24 T-Sheet-- Draft Copy was scanned into [employer] and attached to record. gb 09:24 ECG/EKG was scanned into [employer] and attached to record. gb Administered Medications: 05/22 16:58 Drug: Aspirin 324 mg [aspirin 81 mg chewable tablet (4 tabs)] Route: PO; lf1 16:58 Drug: Nitrostat 0.4 mg [Nitrostat 0.4 mg sublingual tablet (1 tabs)] {Note: 143/67 HR lf1 70.} Route: Sublingual; 17:20 Follow up: BP 125 / 59; Pulse 68 bpm; Pain 4/10 Adult; Response: No Adverse Reaction; lf1 No significant change. 22:10 Drug: Nitrofurantoin 100 mg [nitrofurantoin macrocrystal 50 mg capsule (2 caps)] Route: mv5 PO; 22:59 Follow up: Response: No Adverse Reaction mv5 Signatures: Dispatcher [employer] EDJuly Etienne, Reg Reg gb Wolfgang Malik MD MD br1 Mimi Ashley mt4 Rudy Traylor RN RN ml6 Kay Bonds b Anupama Christina RN RN mv5 Mayte Nguyen RN lf1 The chart was reviewed and I authenticate all verbal orders and agree with the evaluation and treatment provided.Attachments: 17:05 [facility] Payment Agreement gj 05/23 09:24 T-Sheet-- Draft Copy gb 09:24 ECG/EKG gb Chart Complete MTDD
--- NOTE | 2016-05-25 00:09 | EDDOCDS ---
Physician Documentation [facility] Name: Ellyn Ambrocio Age: 66 yrs Sex: Female : 1950 Arrival Date: 05/22/2016 Time: 15:41 Bed OBSERVATION Private MD: Marlon Crooks E. Disposition: 05/22/16 22:41 Discharged to Home/Self Care. Impression: Urinary tract infection, site not specified, Chest pain, unspecified. - Condition is Stable. - Discharge Instructions: Nonspecific Chest Pain, Urinary Tract Infection. - Prescriptions for Macrobid 100 mg Oral Capsule - take 100 milligrams by ORAL route every 12 hours for 7 days; 14 capsule. - Medication Reconciliation, Local Pharmacy Hours form. - Follow up: Marlon Crooks; When: 2 - 3 days; Reason: Recheck today's complaints. Follow up: Joe Jackson; When: 2 - 3 days; Reason: Recheck today's complaints. - Problem is new. - Symptoms are resolved. - Notes: You were seen in the ED for burining on urination concerning for urinary tract infection. You may take the antibiotics as written. You also mentioned chest pain. Bloodwork along with EKG of the heart and chest Xray showed no acute findings at this time. You will need to see your primary doctor and your cell installer within 2-3 days for further follow-up and evaluation - please call these offices in the morning to arrange to be seen.
Return to the ED for any return of chest pain, trouble breathing, lightheadedness, loss of consciousness or any other concerns. Historical: - Allergies: NSAIDS; IV Dye; Biaxin; Cipro IV; PENICILLINS; Codeine Sulfate; SULFA (SULFONAMIDES); Latex; Prednisone; Levaquin; Clindamycin; Lianne 128; - Home Meds: 1. Ativan 0.5 mg Oral tab 1 tab 3 times per day (Last dose: Unknown) 2. Bumex 2 mg Oral tab 1 tab 2 times per day (Last dose: Unknown) 3. aspirin 81 mg Oral tab 1 tab once daily (Last dose: Unknown) 4. flaxseed oil 1,000 mg oral cap daily (Last dose: Unknown) 5. Acidophilus 1200 Oral cap daily (Last dose: Unknown) 6. Rocaltrol 0.5 mcg Oral cap 1 cap once daily (Last dose: Unknown) 7. simvastatin 40 mg Oral tab 1 tab once daily (Last dose: Unknown) 8. cranberry 500 mg oral cap daily (Last dose: Unknown) 9. Jasmin 180 mg Oral tab 1 tab once daily (Last dose: Unknown) 10. Nasacort AQ 55 mcg Nasal spra 1 spray once daily (Last dose: Unknown) 11. Restasis 0.05 % ophthalmic dpet 1 drop every 12 hours (Last dose: Unknown) 12. Alrex 0.2 % ophthalmic drps 1 drop 4 times per day (Last dose: Unknown) 13. Zofran (as hydrochloride) 4 mg Oral tab 4 mg every 12 hours (Last dose: Unknown) 14. Xyzal 5 mg oral tab 2 tab nightly (Last dose: Unknown) 15. Combivent 18-103 mcg/actuation Inhl aero 2 puffs 4 times per day (Last dose: Unknown) 16. trazodone 100 mg Oral tab 2 tabs 2 times per day (Last dose: Unknown) 17. Synthroid 137 mcg Oral tab 1 tab once daily (Last dose: Unknown) 18. Lantus 25 units AM 90 units PM Sub-Q soln (Last dose: Unknown) 19. Prilosec 40 mg Oral cpDR 1 cap once daily (Last dose: Unknown) 20. Victoza 3-Solis 0.6 mg/0.1 mL (18 mg/3 mL) subcutaneous pnij 0.2 mL once daily (Last dose: Unknown) 21. tramadol 50 mg Oral tab 1 tab every 6 hours (Last dose: Unknown) 22. Vesicare 10 mg oral tab 1 tab once daily (Last dose: Unknown) 23. atenolol 50 mg Oral tab 1 tab once daily (Last dose: Unknown) 24. Effexor 75 mg Oral tab 1 tab 3 times per day (Last dose: Unknown) - PMHx: Depression; Anxiety; AO; Fibromyalgia; GERD; Hypothyroidism; ESRD III; Hypertension; Hypercholesterolemia; Diabetes - IDDM: uncontrolled; umbilical hernia; probable meniere's disease; Sleep Apnea w/ BiPap; Fatty Liver, Non-alchoholic; hepatomegally; Obesity; - PSHx: Hysterectomy; laminectomy L3-4, 4-5; Oophorectomy- bilateral; Tonsillectomy; Cholecystectomy; right and left knee replacement; Colonoscopy; - Social history: Smoking status: Patient states was never smoker of tobacco. No barriers to communication noted, Speaks appropriately for age. - Family history: No immediate family members are acutely ill. - : The pt / caregiver states he / she is not on anticoagulants. Home medication list is obtained from the patient. - Exposure Risk Screening:: None identified. Vital Signs: 05/22 15:44 BP 157 / 85 RA Sitting (auto/reg); Pulse 75; Resp 18; Temp 97.5(O); Pulse Ox 96% on jrd R/A; Weight 151.95 kg / 334.99 lbs (R); Height 5 ft. 8 in. (172.72 cm) (R); Pain 8/10; 16:01 BP 135 / 63 (auto/); lf1 16:04 Pulse 72 MON; Pulse Ox 96% ; lf1 16:16 BP 131 / 60 (auto/); lf1 16:16 Pulse 70 MON; Pulse Ox 91% ; lf1 16:31 BP 128 / 60 (auto/); lf1 16:31 Pulse 70 MON; Pulse Ox 91% ; lf1 16:46 BP 149 / 73 (auto/); lf1 16:46 Pulse 68 MON; Pulse Ox 91% ; lf1 16:54 BP 143 / 67 (auto/); lf1 16:54 Pulse 66 MON; Resp 16; Pulse Ox 91% ; Pain 7/10; lf1 17:16 BP 123 / 59 (auto/); lf1 17:16 Pulse 68 MON; Pulse Ox 93% ; lf1 17:17 BP 123 / 58 (auto/); lf1 17:17 Pulse 68 MON; Resp 16; Pulse Ox 93% ; lf1 17:20 BP 125 / 59; Pulse 68; Pain 4/10; lf1 17:30 Pulse 66 MON; Pulse Ox 92% ; lf1 17:31 BP 126 / 60 (auto/); lf1 17:46 BP 137 / 64 (auto/); lf1 17:46 Pulse 66 MON; Pulse Ox 89% on R/A; lf1 17:54 Pulse 66 MON; Pulse Ox 94% on 2 lpm NC; lf1 19:35 BP 139 / 70 (auto/); mv5 19:35 Pulse 76 MON; mv5 20:05 BP 132 / 60 (auto/); mv5 20:05 Pulse 68 MON; Pulse Ox 96% ; mv5 20:35 BP 128 / 58 (auto/); mv5 20:35 Pulse 68 MON; Pulse Ox 96% ; mv5 21:05 BP 157 / 69 (auto/); mv5 21:05 Pulse 68 MON; Pulse Ox 98% ; mv5 22:09 BP 156 / 74 (auto/); mv5 22:09 Pulse 70 MON; Pulse Ox 92% ; mv5 22:55 Pulse 70 MON; Resp 16; Temp 98.9(O); Pulse Ox 97% ; mv5 15:44 Body Mass Index 50.94 (151.95 kg, 172.72 cm) jrd 17:17 Back pain 7 chest pain 4 lf1 MDM: 15:56 ECG WITH READING ER PHYS+CARDIAG ordered. EDMS 16:12 Mortgage Consultant/Pulse Ox/q 30 min VS ordered. br1 16:12 IV Saline Lock ordered. br1 16:12 Rhythm Strip to chart ordered. br1 16:12 Undress patient appropriately for examination ordered. br1 16:12 Aspirin 324 mg PO once ordered. br1 16:13 Basic Metabolic Profile Ordered. EDMS 16:13 CBC with Diff Ordered. EDMS 16:13 Cardiac Injury Profile Ordered. EDMS 16:13 Troponin Ordered. EDMS 16:13 Urinalysis Ordered. EDMS 16:13 Urine Culture Ordered. EDMS 16:13 Chest, 2 View (pa\E\lat) Ordered. EDMS 16:22 Nitrostat 0.4 mg Sublingual once ordered. br1 16:39 Financial registration complete. gjb 17:05 [facility] Payment Agreement was scanned into [employer] and attached to record. gjb 17:35 Basic Metabolic Profile Reviewed. br1 17:35 Cardiac Injury Profile Reviewed. br1 17:35 Troponin Reviewed. br1 17:47 DIFFERENTIAL NO CHARGE Ordered. EDMS 17:57 CBC with Diff Reviewed. br1 17:57 PLATELET ESTIMATE Reviewed. br1 17:57 Chest, 2 View (pa\E\lat) Reviewed. br1 17:58 Repeat EKG (put time details section) ordered. br1 17:58 Redraw CIP &Troponin (put time in details section) ordered. br1 17:58 Admit to ED Observation status ordered. br1 18:00 Admit to ED Observation status complete. mt4 18:07 ECG WITH READING ER PHYS ordered. EDMS 18:07 CARDIAC MARKER PANEL Ordered. EDMS 18:13 Redraw CIP &Troponin (put time in details section) complete. mt4 18:13 Repeat EKG (put time details section) complete. mt4 21:57 Urinalysis Reviewed. br1 21:57 EKG-ADULT Reviewed. br1 21:58 Nitrofurantoin 100 mg PO once ordered. br1 22:21 CARDIAC MARKER PANEL Reviewed. br1 05/23 09:24 T-Sheet-- Draft Copy was scanned into [employer] and attached to record. gb 09:24 ECG/EKG was scanned into [employer] and attached to record. gb Administered Medications: 05/22 16:58 Drug: Aspirin 324 mg [aspirin 81 mg chewable tablet (4 tabs)] Route: PO; lf1 16:58 Drug: Nitrostat 0.4 mg [Nitrostat 0.4 mg sublingual tablet (1 tabs)] {Note: 143/67 HR lf1 70.} Route: Sublingual; 17:20 Follow up: BP 125 / 59; Pulse 68 bpm; Pain 4/10 Adult; Response: No Adverse Reaction; lf1 No significant change. 22:10 Drug: Nitrofurantoin 100 mg [nitrofurantoin macrocrystal 50 mg capsule (2 caps)] Route: mv5 PO; 22:59 Follow up: Response: No Adverse Reaction mv5 Signatures: Dispatcher [employer] EDJuly Etienne, Reg Reg gb Wolfgang Malik MD MD br1 Mimi Ashley mt4 Rudy Traylor RN RN ml6 Kay Bonds b Anupama Christina RN RN mv5 Mayte Nguyen RN lf1 The chart was reviewed and I authenticate all verbal orders and agree with the evaluation and treatment provided.Attachments: 17:05 [facility] Payment Agreement gj 05/23 09:24 T-Sheet-- Draft Copy gb 09:24 ECG/EKG gb Chart Complete MTDD
--- NOTE | 2016-05-25 00:09 | EDDOCDS ---
Nurse's Notes [facility] Name: Ellyn Ambrocio Age: 66 yrs Sex: Female : 1950 Arrival Date: 05/22/2016 Time: 15:41 Bed OBSERVATION Private MD: Marlon Crooks E. Diagnosis: Urinary tract infection, site not specified;Chest pain, unspecified Presentation: 05/22 15:56 Presenting complaint: Patient states: states chest pain and upper back pain since ml6 . Aspirin was not taken prior to arrival. Adult Sepsis Screening: The patient does not have new or worsening altered mentation. Patient's respiratory rate is less than 22. Systolic blood pressure is greater than 100. Patient has a qSOFA score of 0- Negative Sepsis Screen. Suicide/Homicide risk assessment- the patient denies having any suicidal and/or homicidal ideations and does not present with any other emotional, behavioral or mental health complaints. Status: Patient is not a human services manager or dependent. Transition of care: patient was not received from another setting of care. 15:56 Acuity: JOSELO Level 3 ml6 15:56 Method Of Arrival: Walkin/Carried/Asstd ml6 Triage Assessment: 15:56 General: Appears in no apparent distress, Behavior is anxious. Pain: Location: back and ml6 chest Pain currently is 6 out of 10 on a pain scale. Pain does not radiate. Quality of pain is described as sharp, Pain began 2-3 days ago Is continuous. HIV screening NA for this visit Offered previously. Cardiovascular: Capillary refill < 3 seconds is brisk in bilateral fingers toes Heart tones S1 S2 present Edema is absent. Pulses are all present. Chest pain is described as mild, quality is stabbing, is located in anterior chest wall radiates back episodes are continuous began 3-4 days. Respiratory: No deficits noted. Historical: - Allergies: NSAIDS; IV Dye; Biaxin; Cipro IV; PENICILLINS; Codeine Sulfate; SULFA (SULFONAMIDES); Latex; Prednisone; Levaquin; Clindamycin; Lianne 128; - Home Meds: 1. Ativan 0.5 mg Oral tab 1 tab 3 times per day (Last dose: Unknown) 2. Bumex 2 mg Oral tab 1 tab 2 times per day (Last dose: Unknown) 3. aspirin 81 mg Oral tab 1 tab once daily (Last dose: Unknown) 4. flaxseed oil 1,000 mg oral cap daily (Last dose: Unknown) 5. Acidophilus 1200 Oral cap daily (Last dose: Unknown) 6. Rocaltrol 0.5 mcg Oral cap 1 cap once daily (Last dose: Unknown) 7. simvastatin 40 mg Oral tab 1 tab once daily (Last dose: Unknown) 8. cranberry 500 mg oral cap daily (Last dose: Unknown) 9. Jasmin 180 mg Oral tab 1 tab once daily (Last dose: Unknown) 10. Nasacort AQ 55 mcg Nasal spra 1 spray once daily (Last dose: Unknown) 11. Restasis 0.05 % ophthalmic dpet 1 drop every 12 hours (Last dose: Unknown) 12. Alrex 0.2 % ophthalmic drps 1 drop 4 times per day (Last dose: Unknown) 13. Zofran (as hydrochloride) 4 mg Oral tab 4 mg every 12 hours (Last dose: Unknown) 14. Xyzal 5 mg oral tab 2 tab nightly (Last dose: Unknown) 15. Combivent 18-103 mcg/actuation Inhl aero 2 puffs 4 times per day (Last dose: Unknown) 16. trazodone 100 mg Oral tab 2 tabs 2 times per day (Last dose: Unknown) 17. Synthroid 137 mcg Oral tab 1 tab once daily (Last dose: Unknown) 18. Lantus 25 units AM 90 units PM Sub-Q soln (Last dose: Unknown) 19. Prilosec 40 mg Oral cpDR 1 cap once daily (Last dose: Unknown) 20. Victoza 3-Solis 0.6 mg/0.1 mL (18 mg/3 mL) subcutaneous pnij 0.2 mL once daily (Last dose: Unknown) 21. tramadol 50 mg Oral tab 1 tab every 6 hours (Last dose: Unknown) 22. Vesicare 10 mg oral tab 1 tab once daily (Last dose: Unknown) 23. atenolol 50 mg Oral tab 1 tab once daily (Last dose: Unknown) 24. Effexor 75 mg Oral tab 1 tab 3 times per day (Last dose: Unknown) - PMHx: Depression; Anxiety; AO; Fibromyalgia; GERD; Hypothyroidism; ESRD III; Hypertension; Hypercholesterolemia; Diabetes - IDDM: uncontrolled; umbilical hernia; probable meniere's disease; Sleep Apnea w/ BiPap; Fatty Liver, Non-alchoholic; hepatomegally; Obesity; - PSHx: Hysterectomy; laminectomy L3-4, 4-5; Oophorectomy- bilateral; Tonsillectomy; Cholecystectomy; right and left knee replacement; Colonoscopy; - Social history: Smoking status: Patient states was never smoker of tobacco. No barriers to communication noted, Speaks appropriately for age. - Family history: No immediate family members are acutely ill. - : The pt / caregiver states he / she is not on anticoagulants. Home medication list is obtained from the patient. - Exposure Risk Screening:: None identified. Screenin:54 Screening information is obtained from the patient. Fall risk: No risks identified. lf1 Assistance ADL's: requires no assistance with activities of daily living. Abuse/DV Screen: The patient / caregiver reports he/she is:. Nutritional screening: No deficits noted. Advance Directives: Currently, there is no health care proxy. home support is adequate. Assessment: 16:58 Adult Sepsis Screening: The patient does not have new or worsening altered mentation. lf1 Patient's respiratory rate is less than 22. Systolic blood pressure is greater than 100. Patient has a qSOFA score of 0- Negative Sepsis Screen. General: Appears in no apparent distress, comfortable, obese, Behavior is cooperative. General: Pt reports back pain is chronic and 7/10 Chest pain began yesterday while coughing and is currently 4/10. Pain: Location: chest and back Pain currently is 7 out of 10 on a pain scale. Neurological: Level of Consciousness is awake, alert, obeys commands, Oriented to person, place, time. Cardiovascular: Rhythm is regular. Respiratory: Respiratory effort is even, unlabored, Respiratory pattern is regular, Breath sounds are diminished Difficult to auscultate due to body habitus Reports cough that is. GI: Reports constipation, diarrhea, lower abdominal pain, upper abdominal pain, chronic abdominal pain and intermittent constipation. : Reports burning with urination urgency urinary frequency vaginal itching possible yeast infection. 17:21 General: Appears in no apparent distress, comfortable, obese, Behavior is cooperative. lf1 Pain: Location: chest and back Pain currently is 4 out of 10 on a pain scale. Neurological: Level of Consciousness is awake, alert. Respiratory: Respiratory effort is even, unlabored. GI: Reports lower abdominal pain, upper abdominal pain. : Reports burning with urination urgency urinary frequency vaginal itching. Derm: Skin is normal. 17:54 General: Appears in no apparent distress, comfortable, obese, Behavior is cooperative, lf1 drowsy. Pain: Location: chest and back. Neurological: Level of Consciousness is awake. Respiratory: Respiratory effort is even, unlabored, Pt O2 sats 88-91% on RA pt. reports that she uses a CPAP at home , provider aware. O2 at 2L NC applied. GI: Abdomen is obese. 19:43 General: Appears in no apparent distress, comfortable, Behavior is cooperative, mv5 pleasant. Neurological: Level of Consciousness is awake, alert, Oriented to person, place, time. Cardiovascular: Rhythm is regular. Respiratory: Airway is patent Respiratory effort is even, unlabored, Respiratory pattern is regular. Derm: Skin is pink, warm & dry. 20:43 General: Appears in no apparent distress, comfortable. Respiratory: Airway is patent mv5 Respiratory effort is even, unlabored, Respiratory pattern is regular. Derm: Skin is pink, warm & dry. 21:42 General: Appears in no apparent distress. General: Awaiting repeat EKG.. Neurological: mv5 Level of Consciousness is awake, alert, Oriented to person, place, time. Respiratory: Airway is patent Respiratory effort is even, unlabored, Respiratory pattern is regular. Derm: Skin is pink, warm & dry. 21:45 Cardiovascular: Rhythm is regular. mv5 22:21 General: Appears in no apparent distress, meds as ordered, EKG repeated as ordered. . mv5 Neurological: Level of Consciousness is awake, alert, Oriented to person, place, time. Respiratory: Airway is patent Respiratory effort is even, unlabored, Respiratory pattern is regular. Derm: Skin is pink, warm & dry. 23:03 General: Appears in no apparent distress, comfortable, Behavior is cooperative, mv5 pleasant. Pain: Denies pain. Cardiovascular: No deficits noted. Respiratory: No deficits noted. Derm: Skin is pink, warm & dry. Vital Signs: 15:44 BP 157 / 85 RA Sitting (auto/reg); Pulse 75; Resp 18; Temp 97.5(O); Pulse Ox 96% on jrd R/A; Weight 151.95 kg (R); Height 5 ft. 8 in. (172.72 cm) (R); Pain 8/10; 16:01 BP 135 / 63 (auto/); lf1 16:04 Pulse 72 MON; Pulse Ox 96% ; lf1 16:16 BP 131 / 60 (auto/); lf1 16:16 Pulse 70 MON; Pulse Ox 91% ; lf1 16:31 BP 128 / 60 (auto/); lf1 16:31 Pulse 70 MON; Pulse Ox 91% ; lf1 16:46 BP 149 / 73 (auto/); lf1 16:46 Pulse 68 MON; Pulse Ox 91% ; lf1 16:54 BP 143 / 67 (auto/); lf1 16:54 Pulse 66 MON; Resp 16; Pulse Ox 91% ; Pain 7/10; lf1 17:16 BP 123 / 59 (auto/); lf1 17:16 Pulse 68 MON; Pulse Ox 93% ; lf1 17:17 BP 123 / 58 (auto/); lf1 17:17 Pulse 68 MON; Resp 16; Pulse Ox 93% ; lf1 17:20 BP 125 / 59; Pulse 68; Pain 4/10; lf1 17:30 Pulse 66 MON; Pulse Ox 92% ; lf1 17:31 BP 126 / 60 (auto/); lf1 17:46 BP 137 / 64 (auto/); lf1 17:46 Pulse 66 MON; Pulse Ox 89% on R/A; lf1 17:54 Pulse 66 MON; Pulse Ox 94% on 2 lpm NC; lf1 19:35 BP 139 / 70 (auto/); mv5 19:35 Pulse 76 MON; mv5 20:05 BP 132 / 60 (auto/); mv5 20:05 Pulse 68 MON; Pulse Ox 96% ; mv5 20:35 BP 128 / 58 (auto/); mv5 20:35 Pulse 68 MON; Pulse Ox 96% ; mv5 21:05 BP 157 / 69 (auto/); mv5 21:05 Pulse 68 MON; Pulse Ox 98% ; mv5 22:09 BP 156 / 74 (auto/); mv5 22:09 Pulse 70 MON; Pulse Ox 92% ; mv5 22:55 Pulse 70 MON; Resp 16; Temp 98.9(O); Pulse Ox 97% ; mv5 15:44 Body Mass Index 50.94 (151.95 kg, 172.72 cm) jrd 17:17 Back pain 7 chest pain 4 lf1 Vitals: 15:44 RN notified that patient meets Red Flag criteria. jrd 23:07 Log In Time: May 22, 2016 at 15:50. mv5 ED Course: 15:43 Patient visited by Mac Jalloh PCA. jrd 15:43 Patient moved to Waiting jrd 15:44 Marlon Crooks is Private Physician. jrd 15:46 Patient visited by Mac Jalloh PCA. jrd 15:46 Patient moved to Pre RCE jrd 15:51 Patient moved to [facility] 15:56 Triage Initiated ml6 16:00 quality assurance monitor on. Pulse ox on. NIBP on. lf1 16:00 Inserted saline lock: 20 gauge in left antecubital area and blood collected. The lf1 patient tolerated the procedure well. Labs drawn. (by ED staff). Sent per order to lab. 16:02 Gary Malik MD is Attending Physician. br1 16:03 Patient visited by José Miguel Marquez. jml1 16:03 EKG done. (by ED staff). Reviewed by Gary Malik MD. jml1 16:11 Patient visited by Gary Malik MD. br1 16:44 Patient visited by Leonardo Langford PCA. jlf 17:02 Patient visited by Mayte Nguyen,NHI. lf1 17:05 [facility] Payment Agreement was scanned into [employer] and attached to record. gjb 17:22 Patient visited by Mayte Nguyen,NHI. lf1 17:44 Chest, 2 View (pa\E\lat) Returned. EDMS 17:57 Patient visited by Mayte Nguyen RN. lf1 18:00 Patient moved to OBSERVATION mt4 19:18 Anupama Christina,RN is Primary Nurse. mv5 19:44 The patient / caregiver is instructed regarding the plan of care and ED course. mv5 21:07 EKG-ADULT Returned. EDMS 22:18 EKG done. (by ED staff). Reviewed by Gary Malik MD. jmv 22:19 Patient visited by Lorenzo Scott PCA. jmv 22:41 Marlon Crooks is Referral Physician. br1 22:41 Joe Jackson is Referral Physician. br1 22:55 Discontinued intact, bleeding controlled, pressure dressing applied, No mv5 redness/swelling at site. No procedures done that require assistance. 05/23 09:24 T-Sheet-- Draft Copy was scanned into [employer] and attached to record. 09:24 ECG/EKG was scanned into [employer] and attached to record. gb 05/24 08:41 ECG WITH READING ER PHYS Returned. EDMS Administered Medications: 05/22 16:58 Drug: Aspirin 324 mg [aspirin 81 mg chewable tablet (4 tabs)] Route: PO; lf1 16:58 Drug: Nitrostat 0.4 mg [Nitrostat 0.4 mg sublingual tablet (1 tabs)] {Note: 143/67 HR lf1 70.} Route: Sublingual; 17:20 Follow up: BP 125 / 59; Pulse 68 bpm; Pain 4/10 Adult; Response: No Adverse Reaction; lf1 No significant change. 22:10 Drug: Nitrofurantoin 100 mg [nitrofurantoin macrocrystal 50 mg capsule (2 caps)] Route: mv5 PO; 22:59 Follow up: Response: No Adverse Reaction mv5 Order Results: Lab Order: Basic Metabolic Profile; SPEC'M 05/22/16 16:40 Test: GLUCOSE, FASTING; Value: 188; Range: 80-110; Abnormal: Above high normal; Units: MG/DL; Status: F Test: BLOOD UREA NITROGEN; Value: 18; Range: 7-18; Units: MG/DL; Status: F Test: CREATININE FOR GFR; Value: 1.36; Range: 0.55-1.02; Abnormal: Above high normal; Units: MG/DL; Status: F Test: GLOMERULAR FILTRATION RATE; Value: 41.7; Range: >45; Abnormal: Below low normal; Status: F Test: SODIUM LEVEL; Value: 142; Range: 136-145; Units: MEQ/L; Status: F Test: POTASSIUM SERUM; Value: 4.0; Range: 3.5-5.1; Units: MEQ/L; Status: F Test: CHLORIDE LEVEL; Value: 104; Range: 98-107; Units: MEQ/L; Status: F Test: CARBON DIOXIDE LEVEL; Value: 31; Range: 21-32; Units: MEQ/L; Status: F Test: ANION GAP; Value: 7; Range: 8-16; Abnormal: Below low normal; Units: MEQ/L; Status: F Test: CALCIUM LEVEL; Value: 9.1; Range: 8.8-10.2; Units: MG/DL; Status: F Test Note: ; Units are mL/min/1.73 m2 Chronic Kidney Disease Staging per NKF: Stage I & II GFR >=60 Normal to Mildly Decreased Stage III GFR 30-59 Moderately Decreased Stage IV GFR 15-29 Severely Decreased Stage V GFR <15 Very Little GFR Left ESRD GFR <15 on CLAIM BENEFIT SPECIALIST Lab Order: CBC with Diff; SPEC'M 05/22/16 16:40 Test: WHITE BLOOD COUNT; Value: 7.5; Range: 4.0-10.0; Units: K/mm3; Status: F Test: RED BLOOD COUNT; Value: 4.17; Range: 4.00-5.40; Units: M/mm3; Status: F Test: HEMOGLOBIN; Value: 13.9; Range: 12.0-16.0; Units: g/dl; Status: F Test: HEMATOCRIT; Value: 39.8; Range: 36.0-47.0; Units: %; Status: F Test: MEAN CORPUSCULAR VOLUME; Value: 95.5; Range: 80.0-96.0; Units: fl; Status: F Test: MEAN CORPUSCULAR HEMOGLOBIN; Value: 33.4; Range: 27.0-33.0; Abnormal: Above high normal; Units: pg; Status: F Test: MEAN CORPUSCULAR HGB CONC; Value: 35.0; Range: 32.0-36.5; Units: g/dl; Status: F Test: RED CELL DISTRIBUTION WIDTH; Value: 14.1; Range: 11.5-14.5; Units: %; Status: F Test: PLATELET COUNT, AUTOMATED; Value: 221; Range: 150-450; Units: k/mm3; Status: F Test: NEUTROPHILS; Value: 57; Range: 35-75; Units: %; Status: F Test: LYMPHOCYTES; Value: 31; Range: 16-52; Units: %; Status: F Test: MONOCYTES; Value: 5; Range: 0-8; Units: %; Status: F Test: EOSINOPHILS; Value: 6; Range: 0-5; Abnormal: Above high normal; Units: %; Status: F Test: BASOPHILS; Value: 1; Range: 0-4; Units: %; Status: F Test: RBC MORPHOLOGY; Value: NORMAL; Status: F Lab Order: Cardiac Injury Profile; [facility] 05/22/16 16:40 Test: CPK CREATINE PHOSPHOKINASE; Value: 84; Range: 26-192; Units: U/L; Status: F Test: CK-MB VALUE MASS; Value: 2.4; Range: 0.0-3.6; Units: NG/ML; Status: F Test: MB/CK RELATIVE INDEX; Value: 2.85; Range: < OR =4; Status: F Test Note: ; DIAGNOSIS CRITERIA MMB ng/ml Relative Index (RI) NON-AMI < or = 5 N/A VALLE ZONE > 5 < or = 4 AMI > 5 > 4 Lab Order: Troponin; [facility] 05/22/16 16:40 Test: TROPONIN I; Value: < 0.02; Range: < 0.10; Units: NG/ML; Status: F Test Note: ; Troponin I Reference Interval for [facility] LOCI: 99th Percentile= 0.00-0.045 ng/ml Risk Stratification: <= 0.10 ng/ml Decreased Risk for Adverse Clinical Events. 0.10-1.50 ng/ml Increased Risk for Adverse Clinical Events. Evaluation of additional criterion and/or repeat testing in 2-6 hours is suggested to rule out myocardial damage. >= 1.50 ng/ml Indicative of Myocardial Injury. Lab Order: Urinalysis; [facility] 05/22/16 16:33 Test: APPEARANCE, URINE; Value: HAZY; Range: CLEAR; Status: F Test: COLOR, URINE; Value: YELLOW; Range: YELLOW; Status: F Test: PH,URINE; Value: 5.0; Range: 5.0-9.0; Units: UNITS; Status: F Test: SPECIFIC GRAVITY URINE AUTO; Value: 1.028; Range: 1.002-1.035; Status: F Test: PROTEIN, URINE AUTO; Value: 1+; Range: NEGATIVE; Abnormal: Above high normal; Units: mg/dL; Status: F Test: GLUCOSE, URINE (UA) AUTO; Value: NEGATIVE; Range: NEGATIVE; Units: mg/dL; Status: F Test: KETONE, URINE AUTO; Value: NEGATIVE; Range: NEGATIVE; Units: mg/dL; Status: F Test: UROBILINOGEN, URINE AUTO; Value: 0.2; Range: 0.0-2.0; Units: mg/dL; Status: F Test: BILIRUBIN, URINE AUTO; Value: NEGATIVE; Range: NEGATIVE; Status: F Test: NITRITE, URINE AUTO; Value: NEGATIVE; Range: NEGATIVE; Status: F Test: LEUKOCYTE ESTERASE, URINE AUTO; Value: TRACE; Range: NEGATIVE; Abnormal: Above high normal; Status: F Test: BLOOD, URINE BLOOD; Value: NEGATIVE; Range: NEGATIVE; Status: F Test: WBC, URINE AUTO; Value: 12; Range: 0-3; Abnormal: Above high normal; Units: /HPF; Status: F Test: RBC, URINE AUTO; Value: 2; Range: 0-3; Units: /HPF; Status: F Test: BACTERIA, URINE AUTO; Value: 1+; Range: NEGATIVE; Abnormal: Above high normal; Status: F Test: SQUAMOUS EPITHELIAL CELL UR AU; Value: 0; Range: 0-6; Units: /HPF; Status: F Test: MUCUS, URINE; Value: SMALL; Range: NEGATIVE; Status: F Test: HYALINE CAST, URINE AUTO; Value: 2; Range: 0-1; Units: /LPF; Status: F Lab Order: PLATELET ESTIMATE; SPEC'M 05/22/16 16:40 Test: PLATELET ESTIMATE; Value: NORMAL; Range: NORMAL; Status: F Lab Order: CARDIAC MARKER PANEL; SPEC'M 05/22/16 21:22 Test: CPK CREATINE PHOSPHOKINASE; Value: 86; Range: 26-192; Units: U/L; Status: F Test: CK-MB VALUE MASS; Value: 2.5; Range: 0.0-3.6; Units: NG/ML; Status: F Test: MB/CK RELATIVE INDEX; Value: 2.90; Range: < OR =4; Status: F Test: TROPONIN I; Value: < 0.02; Range: < 0.10; Units: NG/ML; Status: F Test Note: ; DIAGNOSIS CRITERIA MMB ng/ml Relative Index (RI) NON-AMI < or = 5 N/A VALLE ZONE > 5 < or = 4 AMI > 5 > 4 Radiology Order: EKG-ADULT Test: EKG-ADULT REASON FOR EXAMINATION: Chest Pain; Stationary ECG Study; [facility] - ED; ; Test Date: 2016-05-22; Pat Name: [facility] Department:; Room: -; Gender: F Psychological Tests Sales Agent: ELYSSA; : 1950 Requested By: Kristin Ford; Order Number: [id number] Reading MD: Kristin Ford; Measurements; Intervals Felicity; Rate: 71 P: -65; WY: 154 QRS: -12; QRSD: 106 T: 51; QT: 382; QTc: 418; Interpretive Statements; ECTOPIC ATRIAL RHYTHM; MINIMAL VOLTAGE CRITERIA FOR LVH, CONSIDER NORMAL VARIANT; SEPTAL MYOCARDIAL INFARCTION, OF INDETERMINATE AGE; ; Electronically Signed On 05-22-2016 20:25:01 EST by Kristin Ford; Radiology Order: Chest, 2 View (pa\E\lat) Test: Chest, 2 View (pa\E\lat) REASON FOR EXAMINATION: Chest Pain; Clinical: Acute chest pain .; ; Comparison: 02/15/2012 .; ; Technique: PA and lateral.; ; Findings:; The mediastinum and cardiac silhouette are normal. The lung rosales are clear and; without acute consolidation, effusion, or pneumothorax. The skeletal structures; are intact and normal.; ; Impression:; 1. No acute cardiopulmonary process.; ; ; Signed by; Joe Perez MD 05/22/2016 05:08 P; Radiology Order: ECG WITH READING ER PHYS Test: ECG WITH READING ER PHYS REASON FOR EXAMINATION: REPEAT EKG AT 2200; Stationary ECG Study; [facility] ED; ; Test Date: 2016-05-22; Pat Name: ELLYN CABALLERO Department:; Room: -; Gender: F Psychological Tests Sales Agent: bhavik; : 1950 Requested By: GARY Wilde; Order Number: [id number] Reading MD: Kristin Ford; Measurements; Intervals Felicity; Rate: 67 P: -59; WY: 138 QRS: -20; QRSD: 101 T: 34; QT: 392; QTc: 417; Interpretive Statements; SINUS RHYTHM; MODERATE VOLTAGE CRITERIA FOR LVH, CONSIDER NORMAL VARIANT; POSSIBLE SEPTAL INFARCT, OLD; SIMILAR 15:57; Electronically Signed On 05-24-2016 8:21:13 EST by Kristin Ford; Outcome: 22:41 Discharge ordered by Provider. br1 22:55 Discharge Assessment: Patient awake, alert and oriented x 3. No cognitive and/or mv5 functional deficits noted. Patient verbalized understanding of disposition instructions. patient administered narcotics - no. 22:55 The following High Risk Discharge criteria are identified: None. Discharged to home mv5 ambulatory. Condition: stable. Demonstrated understanding of Pt was receptive of discharge instructions/ teaching. Prescriptions given X 1. 22:55 No special radiology studies were completed. Property sent home with patient. mv5 23:07 Patient left the ED. mv5 Signatures: Dispatcher [employer] EDMS Vale Santacruz, RN RN July Gonzalez, Reg Reg Mayte Del Rosario,RN RN lf1 Gary Malik MD MD br1 Mimi Ashley mt4 Rudy Traylor, RN RN ml6 José Miguel Marquez jml1 Leonardo Langford, HEAT SEALING MACHINE OPERATOR HEAT SEALING MACHINE OPERATOR jlf Mac Jalloh, HEAT SEALING MACHINE OPERATOR HEAT SEALING MACHINE OPERATOR Kay Lovell Jose, HEAT SEALING MACHINE OPERATOR HEAT SEALING MACHINE OPERATOR Anupama Loza,RN RN mv5 Corrections: (The following items were deleted from the chart) 17:02 15:50 quality assurance monitor on. Pulse ox on. NIBP on. lf1 lf1 Chart Complete MTDD
--- NOTE | 2016-05-25 13:51 | EDDOCDS ---
Nurse's Notes [facility] Name: Ellyn Ambrocio Age: 66 yrs Sex: Female : 1950 Arrival Date: 05/22/2016 Time: 15:41 Bed OBSERVATION Private MD: Marlon Crooks E. Diagnosis: Urinary tract infection, site not specified;Chest pain, unspecified Presentation: 05/22 15:56 Presenting complaint: Patient states: states chest pain and upper back pain since ml6 . Aspirin was not taken prior to arrival. Adult Sepsis Screening: The patient does not have new or worsening altered mentation. Patient's respiratory rate is less than 22. Systolic blood pressure is greater than 100. Patient has a qSOFA score of 0- Negative Sepsis Screen. Suicide/Homicide risk assessment- the patient denies having any suicidal and/or homicidal ideations and does not present with any other emotional, behavioral or mental health complaints. Status: Patient is not a food service sales representatives or dependent. Transition of care: patient was not received from another setting of care. 15:56 Acuity: JOSELO Level 3 ml6 15:56 Method Of Arrival: Walkin/Carried/Asstd ml6 Triage Assessment: 15:56 General: Appears in no apparent distress, Behavior is anxious. Pain: Location: back and ml6 chest Pain currently is 6 out of 10 on a pain scale. Pain does not radiate. Quality of pain is described as sharp, Pain began 2-3 days ago Is continuous. HIV screening NA for this visit Offered previously. Cardiovascular: Capillary refill < 3 seconds is brisk in bilateral fingers toes Heart tones S1 S2 present Edema is absent. Pulses are all present. Chest pain is described as mild, quality is stabbing, is located in anterior chest wall radiates back episodes are continuous began 3-4 days. Respiratory: No deficits noted. Historical: - Allergies: NSAIDS; IV Dye; Biaxin; Cipro IV; PENICILLINS; Codeine Sulfate; SULFA (SULFONAMIDES); Latex; Prednisone; Levaquin; Clindamycin; Lianne 128; - Home Meds: 1. Ativan 0.5 mg Oral tab 1 tab 3 times per day (Last dose: Unknown) 2. Bumex 2 mg Oral tab 1 tab 2 times per day (Last dose: Unknown) 3. aspirin 81 mg Oral tab 1 tab once daily (Last dose: Unknown) 4. flaxseed oil 1,000 mg oral cap daily (Last dose: Unknown) 5. Acidophilus 1200 Oral cap daily (Last dose: Unknown) 6. Rocaltrol 0.5 mcg Oral cap 1 cap once daily (Last dose: Unknown) 7. simvastatin 40 mg Oral tab 1 tab once daily (Last dose: Unknown) 8. cranberry 500 mg oral cap daily (Last dose: Unknown) 9. Jasmin 180 mg Oral tab 1 tab once daily (Last dose: Unknown) 10. Nasacort AQ 55 mcg Nasal spra 1 spray once daily (Last dose: Unknown) 11. Restasis 0.05 % ophthalmic dpet 1 drop every 12 hours (Last dose: Unknown) 12. Alrex 0.2 % ophthalmic drps 1 drop 4 times per day (Last dose: Unknown) 13. Zofran (as hydrochloride) 4 mg Oral tab 4 mg every 12 hours (Last dose: Unknown) 14. Xyzal 5 mg oral tab 2 tab nightly (Last dose: Unknown) 15. Combivent 18-103 mcg/actuation Inhl aero 2 puffs 4 times per day (Last dose: Unknown) 16. trazodone 100 mg Oral tab 2 tabs 2 times per day (Last dose: Unknown) 17. Synthroid 137 mcg Oral tab 1 tab once daily (Last dose: Unknown) 18. Lantus 25 units AM 90 units PM Sub-Q soln (Last dose: Unknown) 19. Prilosec 40 mg Oral cpDR 1 cap once daily (Last dose: Unknown) 20. Victoza 3-Solis 0.6 mg/0.1 mL (18 mg/3 mL) subcutaneous pnij 0.2 mL once daily (Last dose: Unknown) 21. tramadol 50 mg Oral tab 1 tab every 6 hours (Last dose: Unknown) 22. Vesicare 10 mg oral tab 1 tab once daily (Last dose: Unknown) 23. atenolol 50 mg Oral tab 1 tab once daily (Last dose: Unknown) 24. Effexor 75 mg Oral tab 1 tab 3 times per day (Last dose: Unknown) - PMHx: Depression; Anxiety; AO; Fibromyalgia; GERD; Hypothyroidism; ESRD III; Hypertension; Hypercholesterolemia; Diabetes - IDDM: uncontrolled; umbilical hernia; probable meniere's disease; Sleep Apnea w/ BiPap; Fatty Liver, Non-alchoholic; hepatomegally; Obesity; - PSHx: Hysterectomy; laminectomy L3-4, 4-5; Oophorectomy- bilateral; Tonsillectomy; Cholecystectomy; right and left knee replacement; Colonoscopy; - Social history: Smoking status: Patient states was never smoker of tobacco. No barriers to communication noted, Speaks appropriately for age. - Family history: No immediate family members are acutely ill. - : The pt / caregiver states he / she is not on anticoagulants. Home medication list is obtained from the patient. - Exposure Risk Screening:: None identified. Screenin:54 Screening information is obtained from the patient. Fall risk: No risks identified. lf1 Assistance ADL's: requires no assistance with activities of daily living. Abuse/DV Screen: The patient / caregiver reports he/she is:. Nutritional screening: No deficits noted. Advance Directives: Currently, there is no health care proxy. home support is adequate. Assessment: 16:58 Adult Sepsis Screening: The patient does not have new or worsening altered mentation. lf1 Patient's respiratory rate is less than 22. Systolic blood pressure is greater than 100. Patient has a qSOFA score of 0- Negative Sepsis Screen. General: Appears in no apparent distress, comfortable, obese, Behavior is cooperative. General: Pt reports back pain is chronic and 7/10 Chest pain began yesterday while coughing and is currently 4/10. Pain: Location: chest and back Pain currently is 7 out of 10 on a pain scale. Neurological: Level of Consciousness is awake, alert, obeys commands, Oriented to person, place, time. Cardiovascular: Rhythm is regular. Respiratory: Respiratory effort is even, unlabored, Respiratory pattern is regular, Breath sounds are diminished Difficult to auscultate due to body habitus Reports cough that is. GI: Reports constipation, diarrhea, lower abdominal pain, upper abdominal pain, chronic abdominal pain and intermittent constipation. : Reports burning with urination urgency urinary frequency vaginal itching possible yeast infection. 17:21 General: Appears in no apparent distress, comfortable, obese, Behavior is cooperative. lf1 Pain: Location: chest and back Pain currently is 4 out of 10 on a pain scale. Neurological: Level of Consciousness is awake, alert. Respiratory: Respiratory effort is even, unlabored. GI: Reports lower abdominal pain, upper abdominal pain. : Reports burning with urination urgency urinary frequency vaginal itching. Derm: Skin is normal. 17:54 General: Appears in no apparent distress, comfortable, obese, Behavior is cooperative, lf1 drowsy. Pain: Location: chest and back. Neurological: Level of Consciousness is awake. Respiratory: Respiratory effort is even, unlabored, Pt O2 sats 88-91% on RA pt. reports that she uses a CPAP at home , provider aware. O2 at 2L NC applied. GI: Abdomen is obese. 19:43 General: Appears in no apparent distress, comfortable, Behavior is cooperative, mv5 pleasant. Neurological: Level of Consciousness is awake, alert, Oriented to person, place, time. Cardiovascular: Rhythm is regular. Respiratory: Airway is patent Respiratory effort is even, unlabored, Respiratory pattern is regular. Derm: Skin is pink, warm & dry. 20:43 General: Appears in no apparent distress, comfortable. Respiratory: Airway is patent mv5 Respiratory effort is even, unlabored, Respiratory pattern is regular. Derm: Skin is pink, warm & dry. 21:42 General: Appears in no apparent distress. General: Awaiting repeat EKG.. Neurological: mv5 Level of Consciousness is awake, alert, Oriented to person, place, time. Respiratory: Airway is patent Respiratory effort is even, unlabored, Respiratory pattern is regular. Derm: Skin is pink, warm & dry. 21:45 Cardiovascular: Rhythm is regular. mv5 22:21 General: Appears in no apparent distress, meds as ordered, EKG repeated as ordered. . mv5 Neurological: Level of Consciousness is awake, alert, Oriented to person, place, time. Respiratory: Airway is patent Respiratory effort is even, unlabored, Respiratory pattern is regular. Derm: Skin is pink, warm & dry. 23:03 General: Appears in no apparent distress, comfortable, Behavior is cooperative, mv5 pleasant. Pain: Denies pain. Cardiovascular: No deficits noted. Respiratory: No deficits noted. Derm: Skin is pink, warm & dry. Vital Signs: 15:44 BP 157 / 85 RA Sitting (auto/reg); Pulse 75; Resp 18; Temp 97.5(O); Pulse Ox 96% on jrd R/A; Weight 151.95 kg (R); Height 5 ft. 8 in. (172.72 cm) (R); Pain 8/10; 16:01 BP 135 / 63 (auto/); lf1 16:04 Pulse 72 MON; Pulse Ox 96% ; lf1 16:16 BP 131 / 60 (auto/); lf1 16:16 Pulse 70 MON; Pulse Ox 91% ; lf1 16:31 BP 128 / 60 (auto/); lf1 16:31 Pulse 70 MON; Pulse Ox 91% ; lf1 16:46 BP 149 / 73 (auto/); lf1 16:46 Pulse 68 MON; Pulse Ox 91% ; lf1 16:54 BP 143 / 67 (auto/); lf1 16:54 Pulse 66 MON; Resp 16; Pulse Ox 91% ; Pain 7/10; lf1 17:16 BP 123 / 59 (auto/); lf1 17:16 Pulse 68 MON; Pulse Ox 93% ; lf1 17:17 BP 123 / 58 (auto/); lf1 17:17 Pulse 68 MON; Resp 16; Pulse Ox 93% ; lf1 17:20 BP 125 / 59; Pulse 68; Pain 4/10; lf1 17:30 Pulse 66 MON; Pulse Ox 92% ; lf1 17:31 BP 126 / 60 (auto/); lf1 17:46 BP 137 / 64 (auto/); lf1 17:46 Pulse 66 MON; Pulse Ox 89% on R/A; lf1 17:54 Pulse 66 MON; Pulse Ox 94% on 2 lpm NC; lf1 19:35 BP 139 / 70 (auto/); mv5 19:35 Pulse 76 MON; mv5 20:05 BP 132 / 60 (auto/); mv5 20:05 Pulse 68 MON; Pulse Ox 96% ; mv5 20:35 BP 128 / 58 (auto/); mv5 20:35 Pulse 68 MON; Pulse Ox 96% ; mv5 21:05 BP 157 / 69 (auto/); mv5 21:05 Pulse 68 MON; Pulse Ox 98% ; mv5 22:09 BP 156 / 74 (auto/); mv5 22:09 Pulse 70 MON; Pulse Ox 92% ; mv5 22:55 Pulse 70 MON; Resp 16; Temp 98.9(O); Pulse Ox 97% ; mv5 15:44 Body Mass Index 50.94 (151.95 kg, 172.72 cm) jrd 17:17 Back pain 7 chest pain 4 lf1 Vitals: 15:44 RN notified that patient meets Red Flag criteria. jrd 23:07 Log In Time: May 22, 2016 at 15:50. mv5 ED Course: 15:43 Patient visited by Mac Jalloh PCA. jrd 15:43 Patient moved to Waiting jrd 15:44 Marlon Crooks is Private Physician. jrd 15:46 Patient visited by Mac Jalloh PCA. jrd 15:46 Patient moved to Pre RCE jrd 15:51 Patient moved to [facility] 15:56 Triage Initiated ml6 16:00 environmental emergencies assistant on. Pulse ox on. NIBP on. lf1 16:00 Inserted saline lock: 20 gauge in left antecubital area and blood collected. The lf1 patient tolerated the procedure well. Labs drawn. (by ED staff). Sent per order to lab. 16:02 Gary Malik MD is Attending Physician. br1 16:03 Patient visited by José Miguel Marquez. jml1 16:03 EKG done. (by ED staff). Reviewed by Gary Malik MD. jml1 16:11 Patient visited by Gary Malik MD. br1 16:44 Patient visited by Leonardo Langford PCA. jlf 17:02 Patient visited by Mayte Nguyen,NHI. lf1 17:05 [facility] Payment Agreement was scanned into [employer] and attached to record. gjb 17:22 Patient visited by Mayte Nguyen,NHI. lf1 17:44 Chest, 2 View (pa\E\lat) Returned. EDMS 17:57 Patient visited by Mayte Nguyen RN. lf1 18:00 Patient moved to OBSERVATION mt4 19:18 Anupama Christina,RN is Primary Nurse. mv5 19:44 The patient / caregiver is instructed regarding the plan of care and ED course. mv5 21:07 EKG-ADULT Returned. EDMS 22:18 EKG done. (by ED staff). Reviewed by Gary Malik MD. jmv 22:19 Patient visited by Lorenzo Scott PCA. jmv 22:41 Marlon Crooks is Referral Physician. br1 22:41 Joe Jackson is Referral Physician. br1 22:55 Discontinued intact, bleeding controlled, pressure dressing applied, No mv5 redness/swelling at site. No procedures done that require assistance. 05/23 09:24 T-Sheet-- Draft Copy was scanned into [employer] and attached to record. 09:24 ECG/EKG was scanned into [employer] and attached to record. gb 05/24 08:41 ECG WITH READING ER PHYS Returned. EDMS Administered Medications: 05/22 16:58 Drug: Aspirin 324 mg [aspirin 81 mg chewable tablet (4 tabs)] Route: PO; lf1 16:58 Drug: Nitrostat 0.4 mg [Nitrostat 0.4 mg sublingual tablet (1 tabs)] {Note: 143/67 HR lf1 70.} Route: Sublingual; 17:20 Follow up: BP 125 / 59; Pulse 68 bpm; Pain 4/10 Adult; Response: No Adverse Reaction; lf1 No significant change. 22:10 Drug: Nitrofurantoin 100 mg [nitrofurantoin macrocrystal 50 mg capsule (2 caps)] Route: mv5 PO; 22:59 Follow up: Response: No Adverse Reaction mv5 Order Results: Lab Order: Basic Metabolic Profile; SPEC'M 05/22/16 16:40 Test: GLUCOSE, FASTING; Value: 188; Range: 80-110; Abnormal: Above high normal; Units: MG/DL; Status: F Test: BLOOD UREA NITROGEN; Value: 18; Range: 7-18; Units: MG/DL; Status: F Test: CREATININE FOR GFR; Value: 1.36; Range: 0.55-1.02; Abnormal: Above high normal; Units: MG/DL; Status: F Test: GLOMERULAR FILTRATION RATE; Value: 41.7; Range: >45; Abnormal: Below low normal; Status: F Test: SODIUM LEVEL; Value: 142; Range: 136-145; Units: MEQ/L; Status: F Test: POTASSIUM SERUM; Value: 4.0; Range: 3.5-5.1; Units: MEQ/L; Status: F Test: CHLORIDE LEVEL; Value: 104; Range: 98-107; Units: MEQ/L; Status: F Test: CARBON DIOXIDE LEVEL; Value: 31; Range: 21-32; Units: MEQ/L; Status: F Test: ANION GAP; Value: 7; Range: 8-16; Abnormal: Below low normal; Units: MEQ/L; Status: F Test: CALCIUM LEVEL; Value: 9.1; Range: 8.8-10.2; Units: MG/DL; Status: F Test Note: ; Units are mL/min/1.73 m2 Chronic Kidney Disease Staging per NKF: Stage I & II GFR >=60 Normal to Mildly Decreased Stage III GFR 30-59 Moderately Decreased Stage IV GFR 15-29 Severely Decreased Stage V GFR <15 Very Little GFR Left ESRD GFR <15 on CORPORATE RECEPTIONIST Lab Order: CBC with Diff; SPEC'M 05/22/16 16:40 Test: WHITE BLOOD COUNT; Value: 7.5; Range: 4.0-10.0; Units: K/mm3; Status: F Test: RED BLOOD COUNT; Value: 4.17; Range: 4.00-5.40; Units: M/mm3; Status: F Test: HEMOGLOBIN; Value: 13.9; Range: 12.0-16.0; Units: g/dl; Status: F Test: HEMATOCRIT; Value: 39.8; Range: 36.0-47.0; Units: %; Status: F Test: MEAN CORPUSCULAR VOLUME; Value: 95.5; Range: 80.0-96.0; Units: fl; Status: F Test: MEAN CORPUSCULAR HEMOGLOBIN; Value: 33.4; Range: 27.0-33.0; Abnormal: Above high normal; Units: pg; Status: F Test: MEAN CORPUSCULAR HGB CONC; Value: 35.0; Range: 32.0-36.5; Units: g/dl; Status: F Test: RED CELL DISTRIBUTION WIDTH; Value: 14.1; Range: 11.5-14.5; Units: %; Status: F Test: PLATELET COUNT, AUTOMATED; Value: 221; Range: 150-450; Units: k/mm3; Status: F Test: NEUTROPHILS; Value: 57; Range: 35-75; Units: %; Status: F Test: LYMPHOCYTES; Value: 31; Range: 16-52; Units: %; Status: F Test: MONOCYTES; Value: 5; Range: 0-8; Units: %; Status: F Test: EOSINOPHILS; Value: 6; Range: 0-5; Abnormal: Above high normal; Units: %; Status: F Test: BASOPHILS; Value: 1; Range: 0-4; Units: %; Status: F Test: RBC MORPHOLOGY; Value: NORMAL; Status: F Lab Order: Cardiac Injury Profile; [facility] 05/22/16 16:40 Test: CPK CREATINE PHOSPHOKINASE; Value: 84; Range: 26-192; Units: U/L; Status: F Test: CK-MB VALUE MASS; Value: 2.4; Range: 0.0-3.6; Units: NG/ML; Status: F Test: MB/CK RELATIVE INDEX; Value: 2.85; Range: < OR =4; Status: F Test Note: ; DIAGNOSIS CRITERIA MMB ng/ml Relative Index (RI) NON-AMI < or = 5 N/A [place]ONE > 5 < or = 4 AMI > 5 > 4 Lab Order: Troponin; [facility] 05/22/16 16:40 Test: TROPONIN I; Value: < 0.02; Range: < 0.10; Units: NG/ML; Status: F Test Note: ; Troponin I Reference Interval for CRISPR THERAPEUTICS LOCI: 99th Percentile= 0.00-0.045 ng/ml Risk Stratification: <= 0.10 ng/ml Decreased Risk for Adverse Clinical Events. 0.10-1.50 ng/ml Increased Risk for Adverse Clinical Events. Evaluation of additional criterion and/or repeat testing in 2-6 hours is suggested to rule out myocardial damage. >= 1.50 ng/ml Indicative of Myocardial Injury. Lab Order: Urinalysis; [facility] 05/22/16 16:33 Test: APPEARANCE, URINE; Value: HAZY; Range: CLEAR; Status: F Test: COLOR, URINE; Value: YELLOW; Range: YELLOW; Status: F Test: PH,URINE; Value: 5.0; Range: 5.0-9.0; Units: UNITS; Status: F Test: SPECIFIC GRAVITY URINE AUTO; Value: 1.028; Range: 1.002-1.035; Status: F Test: PROTEIN, URINE AUTO; Value: 1+; Range: NEGATIVE; Abnormal: Above high normal; Units: mg/dL; Status: F Test: GLUCOSE, URINE (UA) AUTO; Value: NEGATIVE; Range: NEGATIVE; Units: mg/dL; Status: F Test: KETONE, URINE AUTO; Value: NEGATIVE; Range: NEGATIVE; Units: mg/dL; Status: F Test: UROBILINOGEN, URINE AUTO; Value: 0.2; Range: 0.0-2.0; Units: mg/dL; Status: F Test: BILIRUBIN, URINE AUTO; Value: NEGATIVE; Range: NEGATIVE; Status: F Test: NITRITE, URINE AUTO; Value: NEGATIVE; Range: NEGATIVE; Status: F Test: LEUKOCYTE ESTERASE, URINE AUTO; Value: TRACE; Range: NEGATIVE; Abnormal: Above high normal; Status: F Test: BLOOD, URINE BLOOD; Value: NEGATIVE; Range: NEGATIVE; Status: F Test: WBC, URINE AUTO; Value: 12; Range: 0-3; Abnormal: Above high normal; Units: /HPF; Status: F Test: RBC, URINE AUTO; Value: 2; Range: 0-3; Units: /HPF; Status: F Test: BACTERIA, URINE AUTO; Value: 1+; Range: NEGATIVE; Abnormal: Above high normal; Status: F Test: SQUAMOUS EPITHELIAL CELL UR AU; Value: 0; Range: 0-6; Units: /HPF; Status: F Test: MUCUS, URINE; Value: SMALL; Range: NEGATIVE; Status: F Test: HYALINE CAST, URINE AUTO; Value: 2; Range: 0-1; Units: /LPF; Status: F Lab Order: Urine Culture; SPEC'M 05/22/16 16:33 Test: URINE CULTURE; Value: <EXTERNAL COMMENT eCWMed> FULL REPORT IN LAB NOTES (eCW and Medent).; Status: F Test: URINE CULTURE; Value: ORGANISM 1: ENTEROCOCCUS FAECALIS; Status: F Test: URINE CULTURE; Value: ENTEROCOCCUS FAECALIS; Status: F Test: URINE CULTURE; Value: COLONY COUNT CFU/ml 20,000; Status: F Test: URINE CULTURE; Value: GRAM POS SENSI - VITEK 67; Status: F Test: URINE CULTURE; Value: Method: VIT2; Status: F Test: URINE CULTURE; Value: TETRACYCLINE <=1 S; Status: F Test: URINE CULTURE; Value: PENICILLIN G 2 S; Status: F Test: URINE CULTURE; Value: AMPICILLIN <=2 S; Status: F Test: URINE CULTURE; Value: ERYTHROMYCIN 2 I; Status: F Test: URINE CULTURE; Value: GENTAMICIN 500 S; Status: F Test: URINE CULTURE; Value: NITROFURANTOIN <=16 S; Status: F Test: URINE CULTURE; Value: LEVOFLOXACIN >=8 R; Status: F Test: URINE CULTURE; Value: CIPROFLOXACIN >=8 R; Status: F Test: URINE CULTURE; Value: VANCOMYCIN 1 S; Status: F Lab Order: PLATELET ESTIMATE; SPEC'M 05/22/16 16:40 Test: PLATELET ESTIMATE; Value: NORMAL; Range: NORMAL; Status: F Lab Order: CARDIAC MARKER PANEL; SPEC'M 05/22/16 21:22 Test: CPK CREATINE PHOSPHOKINASE; Value: 86; Range: 26-192; Units: U/L; Status: F Test: CK-MB VALUE MASS; Value: 2.5; Range: 0.0-3.6; Units: NG/ML; Status: F Test: MB/CK RELATIVE INDEX; Value: 2.90; Range: < OR =4; Status: F Test: TROPONIN I; Value: < 0.02; Range: < 0.10; Units: NG/ML; Status: F Test Note: ; DIAGNOSIS CRITERIA MMB ng/ml Relative Index (RI) NON-AMI < or = 5 N/A VAL[place]ONE > 5 < or = 4 AMI > 5 > 4 Radiology Order: EKG-ADULT Test: EKG-ADULT REASON FOR EXAMINATION: Chest Pain; Stationary ECG Study; [facility] - ED; ; Test Date: 2016-05-22; Pat Name: ELLYN AMBROCIO Department:; Room: -; Gender: F Physical Ther: JT; : 1950 Requested By: Kristin Ford; Order Number: [id number] Reading MD: Kristin Ford; Measurements; Intervals [place]; Rate: 71 P: -65; CO: 154 QRS: -12; QRSD: 106 T: 51; QT: 382; QTc: 418; Interpretive Statements; ECTOPIC ATRIAL RHYTHM; MINIMAL VOLTAGE CRITERIA FOR LVH, CONSIDER NORMAL VARIANT; SEPTAL MYOCARDIAL INFARCTION, OF INDETERMINATE AGE; ; Electronically Signed On 05-22-2016 20:25:01 EST by Kristin Ford; Radiology Order: Chest, 2 View (pa\E\lat) Test: Chest, 2 View (pa\E\lat) REASON FOR EXAMINATION: Chest Pain; Clinical: Acute chest pain .; ; Comparison: 02/15/2012 .; ; Technique: PA and lateral.; ; Findings:; The mediastinum and cardiac silhouette are normal. The lung rosales are clear and; without acute consolidation, effusion, or pneumothorax. The skeletal structures; are intact and normal.; ; Impression:; 1. No acute cardiopulmonary process.; ; ; Signed by; Joe Perez MD 05/22/2016 05:08 P; Radiology Order: ECG WITH READING ER PHYS Test: ECG WITH READING ER PHYS REASON FOR EXAMINATION: REPEAT EKG AT 2200; Stationary ECG Study; [facility] - ED; ; Test Date: 2016-05-22; Pat Name: ELLYN AMBROCIO Department:; Room: -; Gender: F Physical Ther: bhavik; : 1950 Requested By: GARY Wilde; Order Number: [id number] Reading MD: Kristin Ford; Measurements; Intervals [place]; Rate: 67 P: -59; CO: 138 QRS: -20; QRSD: 101 T: 34; QT: 392; QTc: 417; Interpretive Statements; SINUS RHYTHM; MODERATE VOLTAGE CRITERIA FOR LVH, CONSIDER NORMAL VARIANT; POSSIBLE SEPTAL INFARCT, OLD; SIMILAR 15:57; Electronically Signed On 05-24-2016 8:21:13 EST by Kristin Ford; Outcome: 22:41 Discharge ordered by Provider. br1 22:55 Discharge Assessment: Patient awake, alert and oriented x 3. No cognitive and/or mv5 functional deficits noted. Patient verbalized understanding of disposition instructions. patient administered narcotics - no. 22:55 The following High Risk Discharge criteria are identified: None. Discharged to home mv5 ambulatory. Condition: stable. Demonstrated understanding of Pt was receptive of discharge instructions/ teaching. Prescriptions given X 1. 22:55 No special radiology studies were completed. Property sent home with patient. mv5 23:07 Patient left the ED. mv5 Addendum: 05/25/2016 13:49 Narrative: Urine culture results reviewed with Christiano Stanley NP and no change in kcs treatment needed. Signatures: Dispatcher [employer] EDMS Vale Santacruz RN RN July Gonzalez, Reg Reg Mayte Del RosarioRN RN 1 Gary Malik MD MD br1 Mimi Ashley mt4 Rudy Traylor, RN RN ml6 José Miguel Marquez jml1 Leonardo Langford, FURRIER SHOP SUPERVISOR FURRIER SHOP SUPERVISOR jlf Mac Jalloh, FURRIER SHOP SUPERVISOR FURRIER SHOP SUPERVISOR jrd Kay Bonds Jose, FURRIER SHOP SUPERVISOR FURRIER SHOP SUPERVISOR jmv Anupama Christina,RN RN mv5 Corrections: (The following items were deleted from the chart) 05/22 17:02 15:50 environmental emergencies assistant on. Pulse ox on. NIBP on. lf1 lf1 MTDD
--- NOTE | 2016-05-25 13:51 | EDDOCDS ---
Physician Documentation [facility] Name: Ellyn Ambrocio Age: 66 yrs Sex: Female : 1950 Arrival Date: 05/22/2016 Time: 15:41 Bed OBSERVATION Private MD: Marlon Crooks E. Disposition: 05/22/16 22:41 Discharged to Home/Self Care. Impression: Urinary tract infection, site not specified, Chest pain, unspecified. - Condition is Stable. - Discharge Instructions: Nonspecific Chest Pain, Urinary Tract Infection. - Prescriptions for Macrobid 100 mg Oral Capsule - take 100 milligrams by ORAL route every 12 hours for 7 days; 14 capsule. - Medication Reconciliation, Local Pharmacy Hours form. - Follow up: Marlon Crooks; When: 2 - 3 days; Reason: Recheck today's complaints. Follow up: Joe Jackson; When: 2 - 3 days; Reason: Recheck today's complaints. - Problem is new. - Symptoms are resolved. - Notes: You were seen in the ED for burining on urination concerning for urinary tract infection. You may take the antibiotics as written. You also mentioned chest pain. Bloodwork along with EKG of the heart and chest Xray showed no acute findings at this time. You will need to see your primary doctor and your side show entertainer within 2-3 days for further follow-up and evaluation - please call these offices in the morning to arrange to be seen.
Return to the ED for any return of chest pain, trouble breathing, lightheadedness, loss of consciousness or any other concerns. Historical: - Allergies: NSAIDS; IV Dye; Biaxin; Cipro IV; PENICILLINS; Codeine Sulfate; SULFA (SULFONAMIDES); Latex; Prednisone; Levaquin; Clindamycin; Lianne 128; - Home Meds: 1. Ativan 0.5 mg Oral tab 1 tab 3 times per day (Last dose: Unknown) 2. Bumex 2 mg Oral tab 1 tab 2 times per day (Last dose: Unknown) 3. aspirin 81 mg Oral tab 1 tab once daily (Last dose: Unknown) 4. flaxseed oil 1,000 mg oral cap daily (Last dose: Unknown) 5. Acidophilus 1200 Oral cap daily (Last dose: Unknown) 6. Rocaltrol 0.5 mcg Oral cap 1 cap once daily (Last dose: Unknown) 7. simvastatin 40 mg Oral tab 1 tab once daily (Last dose: Unknown) 8. cranberry 500 mg oral cap daily (Last dose: Unknown) 9. Jasmin 180 mg Oral tab 1 tab once daily (Last dose: Unknown) 10. Nasacort AQ 55 mcg Nasal spra 1 spray once daily (Last dose: Unknown) 11. Restasis 0.05 % ophthalmic dpet 1 drop every 12 hours (Last dose: Unknown) 12. Alrex 0.2 % ophthalmic drps 1 drop 4 times per day (Last dose: Unknown) 13. Zofran (as hydrochloride) 4 mg Oral tab 4 mg every 12 hours (Last dose: Unknown) 14. Xyzal 5 mg oral tab 2 tab nightly (Last dose: Unknown) 15. Combivent 18-103 mcg/actuation Inhl aero 2 puffs 4 times per day (Last dose: Unknown) 16. trazodone 100 mg Oral tab 2 tabs 2 times per day (Last dose: Unknown) 17. Synthroid 137 mcg Oral tab 1 tab once daily (Last dose: Unknown) 18. Lantus 25 units AM 90 units PM Sub-Q soln (Last dose: Unknown) 19. Prilosec 40 mg Oral cpDR 1 cap once daily (Last dose: Unknown) 20. Victoza 3-Solis 0.6 mg/0.1 mL (18 mg/3 mL) subcutaneous pnij 0.2 mL once daily (Last dose: Unknown) 21. tramadol 50 mg Oral tab 1 tab every 6 hours (Last dose: Unknown) 22. Vesicare 10 mg oral tab 1 tab once daily (Last dose: Unknown) 23. atenolol 50 mg Oral tab 1 tab once daily (Last dose: Unknown) 24. Effexor 75 mg Oral tab 1 tab 3 times per day (Last dose: Unknown) - PMHx: Depression; Anxiety; AO; Fibromyalgia; GERD; Hypothyroidism; ESRD III; Hypertension; Hypercholesterolemia; Diabetes - IDDM: uncontrolled; umbilical hernia; probable meniere's disease; Sleep Apnea w/ BiPap; Fatty Liver, Non-alchoholic; hepatomegally; Obesity; - PSHx: Hysterectomy; laminectomy L3-4, 4-5; Oophorectomy- bilateral; Tonsillectomy; Cholecystectomy; right and left knee replacement; Colonoscopy; - Social history: Smoking status: Patient states was never smoker of tobacco. No barriers to communication noted, Speaks appropriately for age. - Family history: No immediate family members are acutely ill. - : The pt / caregiver states he / she is not on anticoagulants. Home medication list is obtained from the patient. - Exposure Risk Screening:: None identified. Vital Signs: 05/22 15:44 BP 157 / 85 RA Sitting (auto/reg); Pulse 75; Resp 18; Temp 97.5(O); Pulse Ox 96% on jrd R/A; Weight 151.95 kg / 334.99 lbs (R); Height 5 ft. 8 in. (172.72 cm) (R); Pain 8/10; 16:01 BP 135 / 63 (auto/); lf1 16:04 Pulse 72 MON; Pulse Ox 96% ; lf1 16:16 BP 131 / 60 (auto/); lf1 16:16 Pulse 70 MON; Pulse Ox 91% ; lf1 16:31 BP 128 / 60 (auto/); lf1 16:31 Pulse 70 MON; Pulse Ox 91% ; lf1 16:46 BP 149 / 73 (auto/); lf1 16:46 Pulse 68 MON; Pulse Ox 91% ; lf1 16:54 BP 143 / 67 (auto/); lf1 16:54 Pulse 66 MON; Resp 16; Pulse Ox 91% ; Pain 7/10; lf1 17:16 BP 123 / 59 (auto/); lf1 17:16 Pulse 68 MON; Pulse Ox 93% ; lf1 17:17 BP 123 / 58 (auto/); lf1 17:17 Pulse 68 MON; Resp 16; Pulse Ox 93% ; lf1 17:20 BP 125 / 59; Pulse 68; Pain 4/10; lf1 17:30 Pulse 66 MON; Pulse Ox 92% ; lf1 17:31 BP 126 / 60 (auto/); lf1 17:46 BP 137 / 64 (auto/); lf1 17:46 Pulse 66 MON; Pulse Ox 89% on R/A; lf1 17:54 Pulse 66 MON; Pulse Ox 94% on 2 lpm NC; lf1 19:35 BP 139 / 70 (auto/); mv5 19:35 Pulse 76 MON; mv5 20:05 BP 132 / 60 (auto/); mv5 20:05 Pulse 68 MON; Pulse Ox 96% ; mv5 20:35 BP 128 / 58 (auto/); mv5 20:35 Pulse 68 MON; Pulse Ox 96% ; mv5 21:05 BP 157 / 69 (auto/); mv5 21:05 Pulse 68 MON; Pulse Ox 98% ; mv5 22:09 BP 156 / 74 (auto/); mv5 22:09 Pulse 70 MON; Pulse Ox 92% ; mv5 22:55 Pulse 70 MON; Resp 16; Temp 98.9(O); Pulse Ox 97% ; mv5 15:44 Body Mass Index 50.94 (151.95 kg, 172.72 cm) jrd 17:17 Back pain 7 chest pain 4 lf1 MDM: 15:56 ECG WITH READING ER PHYS+CARDIAG ordered. EDMS 16:12 Tag Press Operator/Pulse Ox/q 30 min VS ordered. br1 16:12 IV Saline Lock ordered. br1 16:12 Rhythm Strip to chart ordered. br1 16:12 Undress patient appropriately for examination ordered. br1 16:12 Aspirin 324 mg PO once ordered. br1 16:13 Basic Metabolic Profile Ordered. EDMS 16:13 CBC with Diff Ordered. EDMS 16:13 Cardiac Injury Profile Ordered. EDMS 16:13 Troponin Ordered. EDMS 16:13 Urinalysis Ordered. EDMS 16:13 Urine Culture Ordered. EDMS 16:13 Chest, 2 View (pa\E\lat) Ordered. EDMS 16:22 Nitrostat 0.4 mg Sublingual once ordered. br1 16:39 Financial registration complete. gjb 17:05 [facility] Payment Agreement was scanned into [employer] and attached to record. gjb 17:35 Basic Metabolic Profile Reviewed. br1 17:35 Cardiac Injury Profile Reviewed. br1 17:35 Troponin Reviewed. br1 17:47 DIFFERENTIAL NO CHARGE Ordered. EDMS 17:57 CBC with Diff Reviewed. br1 17:57 PLATELET ESTIMATE Reviewed. br1 17:57 Chest, 2 View (pa\E\lat) Reviewed. br1 17:58 Repeat EKG (put time details section) ordered. br1 17:58 Redraw CIP &Troponin (put time in details section) ordered. br1 17:58 Admit to ED Observation status ordered. br1 18:00 Admit to ED Observation status complete. mt4 18:07 ECG WITH READING ER PHYS ordered. EDMS 18:07 CARDIAC MARKER PANEL Ordered. EDMS 18:13 Redraw CIP &Troponin (put time in details section) complete. mt4 18:13 Repeat EKG (put time details section) complete. mt4 21:57 Urinalysis Reviewed. br1 21:57 EKG-ADULT Reviewed. br1 21:58 Nitrofurantoin 100 mg PO once ordered. br1 22:21 CARDIAC MARKER PANEL Reviewed. br1 05/23 09:24 T-Sheet-- Draft Copy was scanned into [employer] and attached to record. gb 09:24 ECG/EKG was scanned into [employer] and attached to record. gb Administered Medications: 05/22 16:58 Drug: Aspirin 324 mg [aspirin 81 mg chewable tablet (4 tabs)] Route: PO; lf1 16:58 Drug: Nitrostat 0.4 mg [Nitrostat 0.4 mg sublingual tablet (1 tabs)] {Note: 143/67 HR lf1 70.} Route: Sublingual; 17:20 Follow up: BP 125 / 59; Pulse 68 bpm; Pain 4/10 Adult; Response: No Adverse Reaction; lf1 No significant change. 22:10 Drug: Nitrofurantoin 100 mg [nitrofurantoin macrocrystal 50 mg capsule (2 caps)] Route: mv5 PO; 22:59 Follow up: Response: No Adverse Reaction mv5 Signatures: Dispatcher [employer] EDJuly Etienne, Reg Reg gb Wolfgang Malik MD MD br1 Mimi Ashley mt4 Rudy Traylor RN RN ml6 Kay Bonds b Anupama Christina RN RN mv5 Mayte Nguyen RN lf1 The chart was reviewed and I authenticate all verbal orders and agree with the evaluation and treatment provided.Attachments: 17:05 [facility] Payment Agreement gj 05/23 09:24 T-Sheet-- Draft Copy gb 09:24 ECG/EKG gb MTDD
--- NOTE | 2016-05-25 13:52 | EDDOCDS ---
Physician Documentation [facility] Name: Ellyn Ambrocio Age: 66 yrs Sex: Female : 1950 Arrival Date: 05/22/2016 Time: 15:41 Bed OBSERVATION Private MD: Marlon Crooks E. Disposition: 05/22/16 22:41 Discharged to Home/Self Care. Impression: Urinary tract infection, site not specified, Chest pain, unspecified. - Condition is Stable. - Discharge Instructions: Nonspecific Chest Pain, Urinary Tract Infection. - Prescriptions for Macrobid 100 mg Oral Capsule - take 100 milligrams by ORAL route every 12 hours for 7 days; 14 capsule. - Medication Reconciliation, Local Pharmacy Hours form. - Follow up: Marlon Crooks; When: 2 - 3 days; Reason: Recheck today's complaints. Follow up: Joe Jackson; When: 2 - 3 days; Reason: Recheck today's complaints. - Problem is new. - Symptoms are resolved. - Notes: You were seen in the ED for burining on urination concerning for urinary tract infection. You may take the antibiotics as written. You also mentioned chest pain. Bloodwork along with EKG of the heart and chest Xray showed no acute findings at this time. You will need to see your primary doctor and your travel registered nurse oncology within 2-3 days for further follow-up and evaluation - please call these offices in the morning to arrange to be seen.
Return to the ED for any return of chest pain, trouble breathing, lightheadedness, loss of consciousness or any other concerns. Historical: - Allergies: NSAIDS; IV Dye; Biaxin; Cipro IV; PENICILLINS; Codeine Sulfate; SULFA (SULFONAMIDES); Latex; Prednisone; Levaquin; Clindamycin; Lianne 128; - Home Meds: 1. Ativan 0.5 mg Oral tab 1 tab 3 times per day (Last dose: Unknown) 2. Bumex 2 mg Oral tab 1 tab 2 times per day (Last dose: Unknown) 3. aspirin 81 mg Oral tab 1 tab once daily (Last dose: Unknown) 4. flaxseed oil 1,000 mg oral cap daily (Last dose: Unknown) 5. Acidophilus 1200 Oral cap daily (Last dose: Unknown) 6. Rocaltrol 0.5 mcg Oral cap 1 cap once daily (Last dose: Unknown) 7. simvastatin 40 mg Oral tab 1 tab once daily (Last dose: Unknown) 8. cranberry 500 mg oral cap daily (Last dose: Unknown) 9. Jasmin 180 mg Oral tab 1 tab once daily (Last dose: Unknown) 10. Nasacort AQ 55 mcg Nasal spra 1 spray once daily (Last dose: Unknown) 11. Restasis 0.05 % ophthalmic dpet 1 drop every 12 hours (Last dose: Unknown) 12. Alrex 0.2 % ophthalmic drps 1 drop 4 times per day (Last dose: Unknown) 13. Zofran (as hydrochloride) 4 mg Oral tab 4 mg every 12 hours (Last dose: Unknown) 14. Xyzal 5 mg oral tab 2 tab nightly (Last dose: Unknown) 15. Combivent 18-103 mcg/actuation Inhl aero 2 puffs 4 times per day (Last dose: Unknown) 16. trazodone 100 mg Oral tab 2 tabs 2 times per day (Last dose: Unknown) 17. Synthroid 137 mcg Oral tab 1 tab once daily (Last dose: Unknown) 18. Lantus 25 units AM 90 units PM Sub-Q soln (Last dose: Unknown) 19. Prilosec 40 mg Oral cpDR 1 cap once daily (Last dose: Unknown) 20. Victoza 3-Solis 0.6 mg/0.1 mL (18 mg/3 mL) subcutaneous pnij 0.2 mL once daily (Last dose: Unknown) 21. tramadol 50 mg Oral tab 1 tab every 6 hours (Last dose: Unknown) 22. Vesicare 10 mg oral tab 1 tab once daily (Last dose: Unknown) 23. atenolol 50 mg Oral tab 1 tab once daily (Last dose: Unknown) 24. Effexor 75 mg Oral tab 1 tab 3 times per day (Last dose: Unknown) - PMHx: Depression; Anxiety; AO; Fibromyalgia; GERD; Hypothyroidism; ESRD III; Hypertension; Hypercholesterolemia; Diabetes - IDDM: uncontrolled; umbilical hernia; probable meniere's disease; Sleep Apnea w/ BiPap; Fatty Liver, Non-alchoholic; hepatomegally; Obesity; - PSHx: Hysterectomy; laminectomy L3-4, 4-5; Oophorectomy- bilateral; Tonsillectomy; Cholecystectomy; right and left knee replacement; Colonoscopy; - Social history: Smoking status: Patient states was never smoker of tobacco. No barriers to communication noted, Speaks appropriately for age. - Family history: No immediate family members are acutely ill. - : The pt / caregiver states he / she is not on anticoagulants. Home medication list is obtained from the patient. - Exposure Risk Screening:: None identified. Vital Signs: 05/22 15:44 BP 157 / 85 RA Sitting (auto/reg); Pulse 75; Resp 18; Temp 97.5(O); Pulse Ox 96% on jrd R/A; Weight 151.95 kg / 334.99 lbs (R); Height 5 ft. 8 in. (172.72 cm) (R); Pain 8/10; 16:01 BP 135 / 63 (auto/); lf1 16:04 Pulse 72 MON; Pulse Ox 96% ; lf1 16:16 BP 131 / 60 (auto/); lf1 16:16 Pulse 70 MON; Pulse Ox 91% ; lf1 16:31 BP 128 / 60 (auto/); lf1 16:31 Pulse 70 MON; Pulse Ox 91% ; lf1 16:46 BP 149 / 73 (auto/); lf1 16:46 Pulse 68 MON; Pulse Ox 91% ; lf1 16:54 BP 143 / 67 (auto/); lf1 16:54 Pulse 66 MON; Resp 16; Pulse Ox 91% ; Pain 7/10; lf1 17:16 BP 123 / 59 (auto/); lf1 17:16 Pulse 68 MON; Pulse Ox 93% ; lf1 17:17 BP 123 / 58 (auto/); lf1 17:17 Pulse 68 MON; Resp 16; Pulse Ox 93% ; lf1 17:20 BP 125 / 59; Pulse 68; Pain 4/10; lf1 17:30 Pulse 66 MON; Pulse Ox 92% ; lf1 17:31 BP 126 / 60 (auto/); lf1 17:46 BP 137 / 64 (auto/); lf1 17:46 Pulse 66 MON; Pulse Ox 89% on R/A; lf1 17:54 Pulse 66 MON; Pulse Ox 94% on 2 lpm NC; lf1 19:35 BP 139 / 70 (auto/); mv5 19:35 Pulse 76 MON; mv5 20:05 BP 132 / 60 (auto/); mv5 20:05 Pulse 68 MON; Pulse Ox 96% ; mv5 20:35 BP 128 / 58 (auto/); mv5 20:35 Pulse 68 MON; Pulse Ox 96% ; mv5 21:05 BP 157 / 69 (auto/); mv5 21:05 Pulse 68 MON; Pulse Ox 98% ; mv5 22:09 BP 156 / 74 (auto/); mv5 22:09 Pulse 70 MON; Pulse Ox 92% ; mv5 22:55 Pulse 70 MON; Resp 16; Temp 98.9(O); Pulse Ox 97% ; mv5 15:44 Body Mass Index 50.94 (151.95 kg, 172.72 cm) jrd 17:17 Back pain 7 chest pain 4 lf1 MDM: 15:56 ECG WITH READING ER PHYS+CARDIAG ordered. EDMS 16:12 Talkback Host/Pulse Ox/q 30 min VS ordered. br1 16:12 IV Saline Lock ordered. br1 16:12 Rhythm Strip to chart ordered. br1 16:12 Undress patient appropriately for examination ordered. br1 16:12 Aspirin 324 mg PO once ordered. br1 16:13 Basic Metabolic Profile Ordered. EDMS 16:13 CBC with Diff Ordered. EDMS 16:13 Cardiac Injury Profile Ordered. EDMS 16:13 Troponin Ordered. EDMS 16:13 Urinalysis Ordered. EDMS 16:13 Urine Culture Ordered. EDMS 16:13 Chest, 2 View (pa\E\lat) Ordered. EDMS 16:22 Nitrostat 0.4 mg Sublingual once ordered. br1 16:39 Financial registration complete. gjb 17:05 [facility] Payment Agreement was scanned into [employer] and attached to record. gjb 17:35 Basic Metabolic Profile Reviewed. br1 17:35 Cardiac Injury Profile Reviewed. br1 17:35 Troponin Reviewed. br1 17:47 DIFFERENTIAL NO CHARGE Ordered. EDMS 17:57 CBC with Diff Reviewed. br1 17:57 PLATELET ESTIMATE Reviewed. br1 17:57 Chest, 2 View (pa\E\lat) Reviewed. br1 17:58 Repeat EKG (put time details section) ordered. br1 17:58 Redraw CIP &Troponin (put time in details section) ordered. br1 17:58 Admit to ED Observation status ordered. br1 18:00 Admit to ED Observation status complete. mt4 18:07 ECG WITH READING ER PHYS ordered. EDMS 18:07 CARDIAC MARKER PANEL Ordered. EDMS 18:13 Redraw CIP &Troponin (put time in details section) complete. mt4 18:13 Repeat EKG (put time details section) complete. mt4 21:57 Urinalysis Reviewed. br1 21:57 EKG-ADULT Reviewed. br1 21:58 Nitrofurantoin 100 mg PO once ordered. br1 22:21 CARDIAC MARKER PANEL Reviewed. br1 05/23 09:24 T-Sheet-- Draft Copy was scanned into [employer] and attached to record. gb 09:24 ECG/EKG was scanned into [employer] and attached to record. gb Administered Medications: 05/22 16:58 Drug: Aspirin 324 mg [aspirin 81 mg chewable tablet (4 tabs)] Route: PO; lf1 16:58 Drug: Nitrostat 0.4 mg [Nitrostat 0.4 mg sublingual tablet (1 tabs)] {Note: 143/67 HR lf1 70.} Route: Sublingual; 17:20 Follow up: BP 125 / 59; Pulse 68 bpm; Pain 4/10 Adult; Response: No Adverse Reaction; lf1 No significant change. 22:10 Drug: Nitrofurantoin 100 mg [nitrofurantoin macrocrystal 50 mg capsule (2 caps)] Route: mv5 PO; 22:59 Follow up: Response: No Adverse Reaction mv5 Signatures: Dispatcher [employer] EDJuly Etienne, Reg Reg gb Wolfgang Malik MD MD br1 Mimi Ashley mt4 Rudy Traylor RN RN ml6 Kay Bonds b Anupama Christina RN RN mv5 Mayte Nguyen RN lf1 The chart was reviewed and I authenticate all verbal orders and agree with the evaluation and treatment provided.Attachments: 17:05 [facility] Payment Agreement gj 05/23 09:24 T-Sheet-- Draft Copy gb 09:24 ECG/EKG gb Chart Complete MTDD
--- NOTE | 2016-05-25 13:52 | EDDOCDS ---
Nurse's Notes [facility] Name: Ellyn Ambrocio Age: 66 yrs Sex: Female : 1950 Arrival Date: 05/22/2016 Time: 15:41 Bed OBSERVATION Private MD: Marlon Crooks E. Diagnosis: Urinary tract infection, site not specified;Chest pain, unspecified Presentation: 05/22 15:56 Presenting complaint: Patient states: states chest pain and upper back pain since ml6 . Aspirin was not taken prior to arrival. Adult Sepsis Screening: The patient does not have new or worsening altered mentation. Patient's respiratory rate is less than 22. Systolic blood pressure is greater than 100. Patient has a qSOFA score of 0- Negative Sepsis Screen. Suicide/Homicide risk assessment- the patient denies having any suicidal and/or homicidal ideations and does not present with any other emotional, behavioral or mental health complaints. Status: Patient is not a kosher dietary service manager or dependent. Transition of care: patient was not received from another setting of care. 15:56 Acuity: JOSELO Level 3 ml6 15:56 Method Of Arrival: Walkin/Carried/Asstd ml6 Triage Assessment: 15:56 General: Appears in no apparent distress, Behavior is anxious. Pain: Location: back and ml6 chest Pain currently is 6 out of 10 on a pain scale. Pain does not radiate. Quality of pain is described as sharp, Pain began 2-3 days ago Is continuous. HIV screening NA for this visit Offered previously. Cardiovascular: Capillary refill < 3 seconds is brisk in bilateral fingers toes Heart tones S1 S2 present Edema is absent. Pulses are all present. Chest pain is described as mild, quality is stabbing, is located in anterior chest wall radiates back episodes are continuous began 3-4 days. Respiratory: No deficits noted. Historical: - Allergies: NSAIDS; IV Dye; Biaxin; Cipro IV; PENICILLINS; Codeine Sulfate; SULFA (SULFONAMIDES); Latex; Prednisone; Levaquin; Clindamycin; Lianne 128; - Home Meds: 1. Ativan 0.5 mg Oral tab 1 tab 3 times per day (Last dose: Unknown) 2. Bumex 2 mg Oral tab 1 tab 2 times per day (Last dose: Unknown) 3. aspirin 81 mg Oral tab 1 tab once daily (Last dose: Unknown) 4. flaxseed oil 1,000 mg oral cap daily (Last dose: Unknown) 5. Acidophilus 1200 Oral cap daily (Last dose: Unknown) 6. Rocaltrol 0.5 mcg Oral cap 1 cap once daily (Last dose: Unknown) 7. simvastatin 40 mg Oral tab 1 tab once daily (Last dose: Unknown) 8. cranberry 500 mg oral cap daily (Last dose: Unknown) 9. Jasmin 180 mg Oral tab 1 tab once daily (Last dose: Unknown) 10. Nasacort AQ 55 mcg Nasal spra 1 spray once daily (Last dose: Unknown) 11. Restasis 0.05 % ophthalmic dpet 1 drop every 12 hours (Last dose: Unknown) 12. Alrex 0.2 % ophthalmic drps 1 drop 4 times per day (Last dose: Unknown) 13. Zofran (as hydrochloride) 4 mg Oral tab 4 mg every 12 hours (Last dose: Unknown) 14. Xyzal 5 mg oral tab 2 tab nightly (Last dose: Unknown) 15. Combivent 18-103 mcg/actuation Inhl aero 2 puffs 4 times per day (Last dose: Unknown) 16. trazodone 100 mg Oral tab 2 tabs 2 times per day (Last dose: Unknown) 17. Synthroid 137 mcg Oral tab 1 tab once daily (Last dose: Unknown) 18. Lantus 25 units AM 90 units PM Sub-Q soln (Last dose: Unknown) 19. Prilosec 40 mg Oral cpDR 1 cap once daily (Last dose: Unknown) 20. Victoza 3-Solis 0.6 mg/0.1 mL (18 mg/3 mL) subcutaneous pnij 0.2 mL once daily (Last dose: Unknown) 21. tramadol 50 mg Oral tab 1 tab every 6 hours (Last dose: Unknown) 22. Vesicare 10 mg oral tab 1 tab once daily (Last dose: Unknown) 23. atenolol 50 mg Oral tab 1 tab once daily (Last dose: Unknown) 24. Effexor 75 mg Oral tab 1 tab 3 times per day (Last dose: Unknown) - PMHx: Depression; Anxiety; AO; Fibromyalgia; GERD; Hypothyroidism; ESRD III; Hypertension; Hypercholesterolemia; Diabetes - IDDM: uncontrolled; umbilical hernia; probable meniere's disease; Sleep Apnea w/ BiPap; Fatty Liver, Non-alchoholic; hepatomegally; Obesity; - PSHx: Hysterectomy; laminectomy L3-4, 4-5; Oophorectomy- bilateral; Tonsillectomy; Cholecystectomy; right and left knee replacement; Colonoscopy; - Social history: Smoking status: Patient states was never smoker of tobacco. No barriers to communication noted, Speaks appropriately for age. - Family history: No immediate family members are acutely ill. - : The pt / caregiver states he / she is not on anticoagulants. Home medication list is obtained from the patient. - Exposure Risk Screening:: None identified. Screenin:54 Screening information is obtained from the patient. Fall risk: No risks identified. lf1 Assistance ADL's: requires no assistance with activities of daily living. Abuse/DV Screen: The patient / caregiver reports he/she is:. Nutritional screening: No deficits noted. Advance Directives: Currently, there is no health care proxy. home support is adequate. Assessment: 16:58 Adult Sepsis Screening: The patient does not have new or worsening altered mentation. lf1 Patient's respiratory rate is less than 22. Systolic blood pressure is greater than 100. Patient has a qSOFA score of 0- Negative Sepsis Screen. General: Appears in no apparent distress, comfortable, obese, Behavior is cooperative. General: Pt reports back pain is chronic and 7/10 Chest pain began yesterday while coughing and is currently 4/10. Pain: Location: chest and back Pain currently is 7 out of 10 on a pain scale. Neurological: Level of Consciousness is awake, alert, obeys commands, Oriented to person, place, time. Cardiovascular: Rhythm is regular. Respiratory: Respiratory effort is even, unlabored, Respiratory pattern is regular, Breath sounds are diminished Difficult to auscultate due to body habitus Reports cough that is. GI: Reports constipation, diarrhea, lower abdominal pain, upper abdominal pain, chronic abdominal pain and intermittent constipation. : Reports burning with urination urgency urinary frequency vaginal itching possible yeast infection. 17:21 General: Appears in no apparent distress, comfortable, obese, Behavior is cooperative. lf1 Pain: Location: chest and back Pain currently is 4 out of 10 on a pain scale. Neurological: Level of Consciousness is awake, alert. Respiratory: Respiratory effort is even, unlabored. GI: Reports lower abdominal pain, upper abdominal pain. : Reports burning with urination urgency urinary frequency vaginal itching. Derm: Skin is normal. 17:54 General: Appears in no apparent distress, comfortable, obese, Behavior is cooperative, lf1 drowsy. Pain: Location: chest and back. Neurological: Level of Consciousness is awake. Respiratory: Respiratory effort is even, unlabored, Pt O2 sats 88-91% on RA pt. reports that she uses a CPAP at home , provider aware. O2 at 2L NC applied. GI: Abdomen is obese. 19:43 General: Appears in no apparent distress, comfortable, Behavior is cooperative, mv5 pleasant. Neurological: Level of Consciousness is awake, alert, Oriented to person, place, time. Cardiovascular: Rhythm is regular. Respiratory: Airway is patent Respiratory effort is even, unlabored, Respiratory pattern is regular. Derm: Skin is pink, warm & dry. 20:43 General: Appears in no apparent distress, comfortable. Respiratory: Airway is patent mv5 Respiratory effort is even, unlabored, Respiratory pattern is regular. Derm: Skin is pink, warm & dry. 21:42 General: Appears in no apparent distress. General: Awaiting repeat EKG.. Neurological: mv5 Level of Consciousness is awake, alert, Oriented to person, place, time. Respiratory: Airway is patent Respiratory effort is even, unlabored, Respiratory pattern is regular. Derm: Skin is pink, warm & dry. 21:45 Cardiovascular: Rhythm is regular. mv5 22:21 General: Appears in no apparent distress, meds as ordered, EKG repeated as ordered. . mv5 Neurological: Level of Consciousness is awake, alert, Oriented to person, place, time. Respiratory: Airway is patent Respiratory effort is even, unlabored, Respiratory pattern is regular. Derm: Skin is pink, warm & dry. 23:03 General: Appears in no apparent distress, comfortable, Behavior is cooperative, mv5 pleasant. Pain: Denies pain. Cardiovascular: No deficits noted. Respiratory: No deficits noted. Derm: Skin is pink, warm & dry. Vital Signs: 15:44 BP 157 / 85 RA Sitting (auto/reg); Pulse 75; Resp 18; Temp 97.5(O); Pulse Ox 96% on jrd R/A; Weight 151.95 kg (R); Height 5 ft. 8 in. (172.72 cm) (R); Pain 8/10; 16:01 BP 135 / 63 (auto/); lf1 16:04 Pulse 72 MON; Pulse Ox 96% ; lf1 16:16 BP 131 / 60 (auto/); lf1 16:16 Pulse 70 MON; Pulse Ox 91% ; lf1 16:31 BP 128 / 60 (auto/); lf1 16:31 Pulse 70 MON; Pulse Ox 91% ; lf1 16:46 BP 149 / 73 (auto/); lf1 16:46 Pulse 68 MON; Pulse Ox 91% ; lf1 16:54 BP 143 / 67 (auto/); lf1 16:54 Pulse 66 MON; Resp 16; Pulse Ox 91% ; Pain 7/10; lf1 17:16 BP 123 / 59 (auto/); lf1 17:16 Pulse 68 MON; Pulse Ox 93% ; lf1 17:17 BP 123 / 58 (auto/); lf1 17:17 Pulse 68 MON; Resp 16; Pulse Ox 93% ; lf1 17:20 BP 125 / 59; Pulse 68; Pain 4/10; lf1 17:30 Pulse 66 MON; Pulse Ox 92% ; lf1 17:31 BP 126 / 60 (auto/); lf1 17:46 BP 137 / 64 (auto/); lf1 17:46 Pulse 66 MON; Pulse Ox 89% on R/A; lf1 17:54 Pulse 66 MON; Pulse Ox 94% on 2 lpm NC; lf1 19:35 BP 139 / 70 (auto/); mv5 19:35 Pulse 76 MON; mv5 20:05 BP 132 / 60 (auto/); mv5 20:05 Pulse 68 MON; Pulse Ox 96% ; mv5 20:35 BP 128 / 58 (auto/); mv5 20:35 Pulse 68 MON; Pulse Ox 96% ; mv5 21:05 BP 157 / 69 (auto/); mv5 21:05 Pulse 68 MON; Pulse Ox 98% ; mv5 22:09 BP 156 / 74 (auto/); mv5 22:09 Pulse 70 MON; Pulse Ox 92% ; mv5 22:55 Pulse 70 MON; Resp 16; Temp 98.9(O); Pulse Ox 97% ; mv5 15:44 Body Mass Index 50.94 (151.95 kg, 172.72 cm) jrd 17:17 Back pain 7 chest pain 4 lf1 Vitals: 15:44 RN notified that patient meets Red Flag criteria. jrd 23:07 Log In Time: May 22, 2016 at 15:50. mv5 ED Course: 15:43 Patient visited by Mac Jalloh PCA. jrd 15:43 Patient moved to Waiting jrd 15:44 Marlon Crooks is Private Physician. jrd 15:46 Patient visited by Mac Jalloh PCA. jrd 15:46 Patient moved to Pre RCE jrd 15:51 Patient moved to [facility] 15:56 Triage Initiated ml6 16:00 desk monitor on. Pulse ox on. NIBP on. lf1 16:00 Inserted saline lock: 20 gauge in left antecubital area and blood collected. The lf1 patient tolerated the procedure well. Labs drawn. (by ED staff). Sent per order to lab. 16:02 Gary Malik MD is Attending Physician. br1 16:03 Patient visited by José Miguel Marquez. jml1 16:03 EKG done. (by ED staff). Reviewed by Gary Malik MD. jml1 16:11 Patient visited by Gary Malik MD. br1 16:44 Patient visited by Leonardo Langford PCA. jlf 17:02 Patient visited by Mayte Nguyen,NHI. lf1 17:05 [facility] Payment Agreement was scanned into [email or web address] and attached to record. gjb 17:22 Patient visited by Mayte Nguyen,NHI. lf1 17:44 Chest, 2 View (pa\E\lat) Returned. EDMS 17:57 Patient visited by Mayte Nguyen RN. lf1 18:00 Patient moved to OBSERVATION mt4 19:18 Anupama Christina,RN is Primary Nurse. mv5 19:44 The patient / caregiver is instructed regarding the plan of care and ED course. mv5 21:07 EKG-ADULT Returned. EDMS 22:18 EKG done. (by ED staff). Reviewed by Gary Malik MD. jmv 22:19 Patient visited by Lorenzo Scott PCA. jmv 22:41 Marlon Crooks is Referral Physician. br1 22:41 Joe Jackson is Referral Physician. br1 22:55 Discontinued intact, bleeding controlled, pressure dressing applied, No mv5 redness/swelling at site. No procedures done that require assistance. 05/23 09:24 T-Sheet-- Draft Copy was scanned into [email or web address] and attached to record. 09:24 ECG/EKG was scanned into [email or web address] and attached to record. gb 05/24 08:41 ECG WITH READING ER PHYS Returned. EDMS Administered Medications: 05/22 16:58 Drug: Aspirin 324 mg [aspirin 81 mg chewable tablet (4 tabs)] Route: PO; lf1 16:58 Drug: Nitrostat 0.4 mg [Nitrostat 0.4 mg sublingual tablet (1 tabs)] {Note: 143/67 HR lf1 70.} Route: Sublingual; 17:20 Follow up: BP 125 / 59; Pulse 68 bpm; Pain 4/10 Adult; Response: No Adverse Reaction; lf1 No significant change. 22:10 Drug: Nitrofurantoin 100 mg [nitrofurantoin macrocrystal 50 mg capsule (2 caps)] Route: mv5 PO; 22:59 Follow up: Response: No Adverse Reaction mv5 Order Results: Lab Order: Basic Metabolic Profile; SPEC'M 05/22/16 16:40 Test: GLUCOSE, FASTING; Value: 188; Range: 80-110; Abnormal: Above high normal; Units: MG/DL; Status: F Test: BLOOD UREA NITROGEN; Value: 18; Range: 7-18; Units: MG/DL; Status: F Test: CREATININE FOR GFR; Value: 1.36; Range: 0.55-1.02; Abnormal: Above high normal; Units: MG/DL; Status: F Test: GLOMERULAR FILTRATION RATE; Value: 41.7; Range: >45; Abnormal: Below low normal; Status: F Test: SODIUM LEVEL; Value: 142; Range: 136-145; Units: MEQ/L; Status: F Test: POTASSIUM SERUM; Value: 4.0; Range: 3.5-5.1; Units: MEQ/L; Status: F Test: CHLORIDE LEVEL; Value: 104; Range: 98-107; Units: MEQ/L; Status: F Test: CARBON DIOXIDE LEVEL; Value: 31; Range: 21-32; Units: MEQ/L; Status: F Test: ANION GAP; Value: 7; Range: 8-16; Abnormal: Below low normal; Units: MEQ/L; Status: F Test: CALCIUM LEVEL; Value: 9.1; Range: 8.8-10.2; Units: MG/DL; Status: F Test Note: ; Units are mL/min/1.73 m2 Chronic Kidney Disease Staging per NKF: Stage I & II GFR >=60 Normal to Mildly Decreased Stage III GFR 30-59 Moderately Decreased Stage IV GFR 15-29 Severely Decreased Stage V GFR <15 Very Little GFR Left ESRD GFR <15 on FIELD [facility]CHAND[facility]ER Lab Order: CBC with Diff; SPEC'M 05/22/16 16:40 Test: WHITE BLOOD COUNT; Value: 7.5; Range: 4.0-10.0; Units: K/mm3; Status: F Test: RED BLOOD COUNT; Value: 4.17; Range: 4.00-5.40; Units: M/mm3; Status: F Test: HEMOGLOBIN; Value: 13.9; Range: 12.0-16.0; Units: g/dl; Status: F Test: HEMATOCRIT; Value: 39.8; Range: 36.0-47.0; Units: %; Status: F Test: MEAN CORPUSCULAR VOLUME; Value: 95.5; Range: 80.0-96.0; Units: fl; Status: F Test: MEAN CORPUSCULAR HEMOGLOBIN; Value: 33.4; Range: 27.0-33.0; Abnormal: Above high normal; Units: pg; Status: F Test: MEAN CORPUSCULAR HGB CONC; Value: 35.0; Range: 32.0-36.5; Units: g/dl; Status: F Test: RED CELL DISTRIBUTION WIDTH; Value: 14.1; Range: 11.5-14.5; Units: %; Status: F Test: PLATELET COUNT, AUTOMATED; Value: 221; Range: 150-450; Units: k/mm3; Status: F Test: NEUTROPHILS; Value: 57; Range: 35-75; Units: %; Status: F Test: LYMPHOCYTES; Value: 31; Range: 16-52; Units: %; Status: F Test: MONOCYTES; Value: 5; Range: 0-8; Units: %; Status: F Test: EOSINOPHILS; Value: 6; Range: 0-5; Abnormal: Above high normal; Units: %; Status: F Test: BASOPHILS; Value: 1; Range: 0-4; Units: %; Status: F Test: RBC MORPHOLOGY; Value: NORMAL; Status: F Lab Order: Cardiac Injury Profile; [facility] 05/22/16 16:40 Test: CPK CREATINE PHOSPHOKINASE; Value: 84; Range: 26-192; Units: U/L; Status: F Test: CK-MB VALUE MASS; Value: 2.4; Range: 0.0-3.6; Units: NG/ML; Status: F Test: MB/CK RELATIVE INDEX; Value: 2.85; Range: < OR =4; Status: F Test Note: ; DIAGNOSIS CRITERIA MMB ng/ml Relative Index (RI) NON-AMI < or = 5 N/A [place] > 5 < or = 4 AMI > 5 > 4 Lab Order: Troponin; [facility] 05/22/16 16:40 Test: TROPONIN I; Value: < 0.02; Range: < 0.10; Units: NG/ML; Status: F Test Note: ; Troponin I Reference Interval for [employer] LOCI: 99th Percentile= 0.00-0.045 ng/ml Risk Stratification: <= 0.10 ng/ml Decreased Risk for Adverse Clinical Events. 0.10-1.50 ng/ml Increased Risk for Adverse Clinical Events. Evaluation of additional criterion and/or repeat testing in 2-6 hours is suggested to rule out myocardial damage. >= 1.50 ng/ml Indicative of Myocardial Injury. Lab Order: Urinalysis; [facility] 05/22/16 16:33 Test: APPEARANCE, URINE; Value: HAZY; Range: CLEAR; Status: F Test: COLOR, URINE; Value: YELLOW; Range: YELLOW; Status: F Test: PH,URINE; Value: 5.0; Range: 5.0-9.0; Units: UNITS; Status: F Test: SPECIFIC GRAVITY URINE AUTO; Value: 1.028; Range: 1.002-1.035; Status: F Test: PROTEIN, URINE AUTO; Value: 1+; Range: NEGATIVE; Abnormal: Above high normal; Units: mg/dL; Status: F Test: GLUCOSE, URINE (UA) AUTO; Value: NEGATIVE; Range: NEGATIVE; Units: mg/dL; Status: F Test: KETONE, URINE AUTO; Value: NEGATIVE; Range: NEGATIVE; Units: mg/dL; Status: F Test: UROBILINOGEN, URINE AUTO; Value: 0.2; Range: 0.0-2.0; Units: mg/dL; Status: F Test: BILIRUBIN, URINE AUTO; Value: NEGATIVE; Range: NEGATIVE; Status: F Test: NITRITE, URINE AUTO; Value: NEGATIVE; Range: NEGATIVE; Status: F Test: LEUKOCYTE ESTERASE, URINE AUTO; Value: TRACE; Range: NEGATIVE; Abnormal: Above high normal; Status: F Test: BLOOD, URINE BLOOD; Value: NEGATIVE; Range: NEGATIVE; Status: F Test: WBC, URINE AUTO; Value: 12; Range: 0-3; Abnormal: Above high normal; Units: /HPF; Status: F Test: RBC, URINE AUTO; Value: 2; Range: 0-3; Units: /HPF; Status: F Test: BACTERIA, URINE AUTO; Value: 1+; Range: NEGATIVE; Abnormal: Above high normal; Status: F Test: SQUAMOUS EPITHELIAL CELL UR AU; Value: 0; Range: 0-6; Units: /HPF; Status: F Test: MUCUS, URINE; Value: SMALL; Range: NEGATIVE; Status: F Test: HYALINE CAST, URINE AUTO; Value: 2; Range: 0-1; Units: /LPF; Status: F Lab Order: Urine Culture; SPEC'M 05/22/16 16:33 Test: URINE CULTURE; Value: <EXTERNAL COMMENT eCWMed> FULL REPORT IN LAB NOTES (eCW and Medent).; Status: F Test: URINE CULTURE; Value: ORGANISM 1: ENTEROCOCCUS FAECALIS; Status: F Test: URINE CULTURE; Value: ENTEROCOCCUS FAECALIS; Status: F Test: URINE CULTURE; Value: COLONY COUNT CFU/ml 20,000; Status: F Test: URINE CULTURE; Value: GRAM POS SENSI - VITEK 67; Status: F Test: URINE CULTURE; Value: Method: VIT2; Status: F Test: URINE CULTURE; Value: TETRACYCLINE <=1 S; Status: F Test: URINE CULTURE; Value: PENICILLIN G 2 S; Status: F Test: URINE CULTURE; Value: AMPICILLIN <=2 S; Status: F Test: URINE CULTURE; Value: ERYTHROMYCIN 2 I; Status: F Test: URINE CULTURE; Value: GENTAMICIN 500 S; Status: F Test: URINE CULTURE; Value: NITROFURANTOIN <=16 S; Status: F Test: URINE CULTURE; Value: LEVOFLOXACIN >=8 R; Status: F Test: URINE CULTURE; Value: CIPROFLOXACIN >=8 R; Status: F Test: URINE CULTURE; Value: VANCOMYCIN 1 S; Status: F Lab Order: PLATELET ESTIMATE; SPEC'M 05/22/16 16:40 Test: PLATELET ESTIMATE; Value: NORMAL; Range: NORMAL; Status: F Lab Order: CARDIAC MARKER PANEL; SPEC'M 05/22/16 21:22 Test: CPK CREATINE PHOSPHOKINASE; Value: 86; Range: 26-192; Units: U/L; Status: F Test: CK-MB VALUE MASS; Value: 2.5; Range: 0.0-3.6; Units: NG/ML; Status: F Test: MB/CK RELATIVE INDEX; Value: 2.90; Range: < OR =4; Status: F Test: TROPONIN I; Value: < 0.02; Range: < 0.10; Units: NG/ML; Status: F Test Note: ; DIAGNOSIS CRITERIA MMB ng/ml Relative Index (RI) NON-AMI < or = 5 N/A [place]ONE > 5 < or = 4 AMI > 5 > 4 Radiology Order: EKG-ADULT Test: EKG-ADULT REASON FOR EXAMINATION: Chest Pain; Stationary ECG Study; [facility] - ED; ; Test Date: 2016-05-22; Pat Name: ELLYN AMBROCIO Department:; Room: -; Gender: F Collateral Specialist: JT; : 1950 Requested By: Kristin Ford; Order Number: [id number] Reading MD: Kristin Ford; Measurements; Intervals [place]; Rate: 71 P: -65; MO: 154 QRS: -12; QRSD: 106 T: 51; QT: 382; QTc: 418; Interpretive Statements; ECTOPIC ATRIAL RHYTHM; MINIMAL VOLTAGE CRITERIA FOR LVH, CONSIDER NORMAL VARIANT; SEPTAL MYOCARDIAL INFARCTION, OF INDETERMINATE AGE; ; Electronically Signed On 05-22-2016 20:25:01 EST by Kristin Ford; Radiology Order: Chest, 2 View (pa\E\lat) Test: Chest, 2 View (pa\E\lat) REASON FOR EXAMINATION: Chest Pain; Clinical: Acute chest pain .; ; Comparison: 02/15/2012 .; ; Technique: PA and lateral.; ; Findings:; The mediastinum and cardiac silhouette are normal. The lung rosales are clear and; without acute consolidation, effusion, or pneumothorax. The skeletal structures; are intact and normal.; ; Impression:; 1. No acute cardiopulmonary process.; ; ; Signed by; Joe Perez MD 05/22/2016 05:08 P; Radiology Order: ECG WITH READING ER PHYS Test: ECG WITH READING ER PHYS REASON FOR EXAMINATION: REPEAT EKG AT 2200; Stationary ECG Study; [facility] - ED; ; Test Date: 2016-05-22; Pat Name: ELLYN AMBROCIO Department:; Room: -; Gender: F Collateral Specialist: bhavik; : 1950 Requested By: GARY Wilde; Order Number: [id number] Reading MD: Kristin Ford; Measurements; Intervals [place]; Rate: 67 P: -59; MO: 138 QRS: -20; QRSD: 101 T: 34; QT: 392; QTc: 417; Interpretive Statements; SINUS RHYTHM; MODERATE VOLTAGE CRITERIA FOR LVH, CONSIDER NORMAL VARIANT; POSSIBLE SEPTAL INFARCT, OLD; SIMILAR 15:57; Electronically Signed On 05-24-2016 8:21:13 EST by Kristin Ford; Outcome: 22:41 Discharge ordered by Provider. br1 22:55 Discharge Assessment: Patient awake, alert and oriented x 3. No cognitive and/or mv5 functional deficits noted. Patient verbalized understanding of disposition instructions. patient administered narcotics - no. 22:55 The following High Risk Discharge criteria are identified: None. Discharged to home mv5 ambulatory. Condition: stable. Demonstrated understanding of Pt was receptive of discharge instructions/ teaching. Prescriptions given X 1. 22:55 No special radiology studies were completed. Property sent home with patient. mv5 23:07 Patient left the ED. mv5 Addendum: 05/25/2016 13:49 Narrative: Urine culture results reviewed with Christiano Stanley NP and no change in kcs treatment needed. Signatures: Dispatcher [employer] EDMS Vale Santacruz RN RN July Gonzalez, Reg Reg Mayte Del RosarioRN RN 1 Gary Malik MD MD br1 Mimi Ashley mt4 Rudy Traylor, RN RN ml6 José Miguel Marquez jml1 Leonardo Langford, ORGAN INSTALLER ORGAN INSTALLER jlf Mac Jalloh, ORGAN INSTALLER ORGAN INSTALLER jrd Kay Bonds Jose, ORGAN INSTALLER ORGAN INSTALLER jmv Anupama Christina,RN RN mv5 Corrections: (The following items were deleted from the chart) 05/22 17:02 15:50 desk monitor on. Pulse ox on. NIBP on. lf1 lf1 Chart Complete MTDD
--- NOTE | 2016-05-25 13:55 | EDDOCDS ---
Physician Documentation [facility] Name: Ellyn Ambrocio Age: 66 yrs Sex: Female : 1950 Arrival Date: 05/22/2016 Time: 15:41 Bed OBSERVATION Private MD: Marlon Crooks E. Disposition: 05/22/16 22:41 Discharged to Home/Self Care. Impression: Urinary tract infection, site not specified, Chest pain, unspecified. - Condition is Stable. - Discharge Instructions: Nonspecific Chest Pain, Urinary Tract Infection. - Prescriptions for Macrobid 100 mg Oral Capsule - take 100 milligrams by ORAL route every 12 hours for 7 days; 14 capsule. - Medication Reconciliation, Local Pharmacy Hours form. - Follow up: Marlon Crooks; When: 2 - 3 days; Reason: Recheck today's complaints. Follow up: Joe Jackson; When: 2 - 3 days; Reason: Recheck today's complaints. - Problem is new. - Symptoms are resolved. - Notes: You were seen in the ED for burining on urination concerning for urinary tract infection. You may take the antibiotics as written. You also mentioned chest pain. Bloodwork along with EKG of the heart and chest Xray showed no acute findings at this time. 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
Return to the ED for any return of chest pain, trouble breathing, lightheadedness, loss of consciousness or any other concerns. Historical: - Allergies: NSAIDS; IV Dye; Biaxin; Cipro IV; PENICILLINS; Codeine Sulfate; SULFA (SULFONAMIDES); Latex; Prednisone; Levaquin; Clindamycin; Lianne 128; - Home Meds: 1. Ativan 0.5 mg Oral tab 1 tab 3 times per day (Last dose: Unknown) 2. Bumex 2 mg Oral tab 1 tab 2 times per day (Last dose: Unknown) 3. aspirin 81 mg Oral tab 1 tab once daily (Last dose: Unknown) 4. flaxseed oil 1,000 mg oral cap daily (Last dose: Unknown) 5. Acidophilus 1200 Oral cap daily (Last dose: Unknown) 6. Rocaltrol 0.5 mcg Oral cap 1 cap once daily (Last dose: Unknown) 7. simvastatin 40 mg Oral tab 1 tab once daily (Last dose: Unknown) 8. cranberry 500 mg oral cap daily (Last dose: Unknown) 9. Jasmin 180 mg Oral tab 1 tab once daily (Last dose: Unknown) 10. Nasacort AQ 55 mcg Nasal spra 1 spray once daily (Last dose: Unknown) 11. Restasis 0.05 % ophthalmic dpet 1 drop every 12 hours (Last dose: Unknown) 12. Alrex 0.2 % ophthalmic drps 1 drop 4 times per day (Last dose: Unknown) 13. Zofran (as hydrochloride) 4 mg Oral tab 4 mg every 12 hours (Last dose: Unknown) 14. Xyzal 5 mg oral tab 2 tab nightly (Last dose: Unknown) 15. Combivent 18-103 mcg/actuation Inhl aero 2 puffs 4 times per day (Last dose: Unknown) 16. trazodone 100 mg Oral tab 2 tabs 2 times per day (Last dose: Unknown) 17. Synthroid 137 mcg Oral tab 1 tab once daily (Last dose: Unknown) 18. Lantus 25 units AM 90 units PM Sub-Q soln (Last dose: Unknown) 19. Prilosec 40 mg Oral cpDR 1 cap once daily (Last dose: Unknown) 20. Victoza 3-Solis 0.6 mg/0.1 mL (18 mg/3 mL) subcutaneous pnij 0.2 mL once daily (Last dose: Unknown) 21. tramadol 50 mg Oral tab 1 tab every 6 hours (Last dose: Unknown) 22. Vesicare 10 mg oral tab 1 tab once daily (Last dose: Unknown) 23. atenolol 50 mg Oral tab 1 tab once daily (Last dose: Unknown) 24. Effexor 75 mg Oral tab 1 tab 3 times per day (Last dose: Unknown) - PMHx: Depression; Anxiety; AO; Fibromyalgia; GERD; Hypothyroidism; ESRD III; Hypertension; Hypercholesterolemia; Diabetes - IDDM: uncontrolled; umbilical hernia; probable meniere's disease; Sleep Apnea w/ BiPap; Fatty Liver, Non-alchoholic; hepatomegally; Obesity; - PSHx: Hysterectomy; laminectomy L3-4, 4-5; Oophorectomy- bilateral; Tonsillectomy; Cholecystectomy; right and left knee replacement; Colonoscopy; - Social history: Smoking status: Patient states was never smoker of tobacco. No barriers to communication noted, Speaks appropriately for age. - Family history: No immediate family members are acutely ill. - : The pt / caregiver states he / she is not on anticoagulants. Home medication list is obtained from the patient. - Exposure Risk Screening:: None identified. Vital Signs: 05/22 15:44 BP 157 / 85 RA Sitting (auto/reg); Pulse 75; Resp 18; Temp 97.5(O); Pulse Ox 96% on jrd R/A; Weight 151.95 kg / 334.99 lbs (R); Height 5 ft. 8 in. (172.72 cm) (R); Pain 8/10; 16:01 BP 135 / 63 (auto/); lf1 16:04 Pulse 72 MON; Pulse Ox 96% ; lf1 16:16 BP 131 / 60 (auto/); lf1 16:16 Pulse 70 MON; Pulse Ox 91% ; lf1 16:31 BP 128 / 60 (auto/); lf1 16:31 Pulse 70 MON; Pulse Ox 91% ; lf1 16:46 BP 149 / 73 (auto/); lf1 16:46 Pulse 68 MON; Pulse Ox 91% ; lf1 16:54 BP 143 / 67 (auto/); lf1 16:54 Pulse 66 MON; Resp 16; Pulse Ox 91% ; Pain 7/10; lf1 17:16 BP 123 / 59 (auto/); lf1 17:16 Pulse 68 MON; Pulse Ox 93% ; lf1 17:17 BP 123 / 58 (auto/); lf1 17:17 Pulse 68 MON; Resp 16; Pulse Ox 93% ; lf1 17:20 BP 125 / 59; Pulse 68; Pain 4/10; lf1 17:30 Pulse 66 MON; Pulse Ox 92% ; lf1 17:31 BP 126 / 60 (auto/); lf1 17:46 BP 137 / 64 (auto/); lf1 17:46 Pulse 66 MON; Pulse Ox 89% on R/A; lf1 17:54 Pulse 66 MON; Pulse Ox 94% on 2 lpm NC; lf1 19:35 BP 139 / 70 (auto/); mv5 19:35 Pulse 76 MON; mv5 20:05 BP 132 / 60 (auto/); mv5 20:05 Pulse 68 MON; Pulse Ox 96% ; mv5 20:35 BP 128 / 58 (auto/); mv5 20:35 Pulse 68 MON; Pulse Ox 96% ; mv5 21:05 BP 157 / 69 (auto/); mv5 21:05 Pulse 68 MON; Pulse Ox 98% ; mv5 22:09 BP 156 / 74 (auto/); mv5 22:09 Pulse 70 MON; Pulse Ox 92% ; mv5 22:55 Pulse 70 MON; Resp 16; Temp 98.9(O); Pulse Ox 97% ; mv5 15:44 Body Mass Index 50.94 (151.95 kg, 172.72 cm) jrd 17:17 Back pain 7 chest pain 4 lf1 MDM: 15:56 ECG WITH READING ER PHYS+CARDIAG ordered. EDMS 16:12 Media Job Titles/Pulse Ox/q 30 min VS ordered. br1 16:12 IV Saline Lock ordered. br1 16:12 Rhythm Strip to chart ordered. br1 16:12 Undress patient appropriately for examination ordered. br1 16:12 Aspirin 324 mg PO once ordered. br1 16:13 Basic Metabolic Profile Ordered. EDMS 16:13 CBC with Diff Ordered. EDMS 16:13 Cardiac Injury Profile Ordered. EDMS 16:13 Troponin Ordered. EDMS 16:13 Urinalysis Ordered. EDMS 16:13 Urine Culture Ordered. EDMS 16:13 Chest, 2 View (pa\E\lat) Ordered. EDMS 16:22 Nitrostat 0.4 mg Sublingual once ordered. br1 16:39 Financial registration complete. gjb 17:05 [facility] Payment Agreement was scanned into [employer] and attached to record. gjb 17:35 Basic Metabolic Profile Reviewed. br1 17:35 Cardiac Injury Profile Reviewed. br1 17:35 Troponin Reviewed. br1 17:47 DIFFERENTIAL NO CHARGE Ordered. EDMS 17:57 CBC with Diff Reviewed. br1 17:57 PLATELET ESTIMATE Reviewed. br1 17:57 Chest, 2 View (pa\E\lat) Reviewed. br1 17:58 Repeat EKG (put time details section) ordered. br1 17:58 Redraw CIP &Troponin (put time in details section) ordered. br1 17:58 Admit to ED Observation status ordered. br1 18:00 Admit to ED Observation status complete. mt4 18:07 ECG WITH READING ER PHYS ordered. EDMS 18:07 CARDIAC MARKER PANEL Ordered. EDMS 18:13 Redraw CIP &Troponin (put time in details section) complete. mt4 18:13 Repeat EKG (put time details section) complete. mt4 21:57 Urinalysis Reviewed. br1 21:57 EKG-ADULT Reviewed. br1 21:58 Nitrofurantoin 100 mg PO once ordered. br1 22:21 CARDIAC MARKER PANEL Reviewed. br1 05/23 09:24 T-Sheet-- Draft Copy was scanned into [employer] and attached to record. gb 09:24 ECG/EKG was scanned into [employer] and attached to record. gb Administered Medications: 05/22 16:58 Drug: Aspirin 324 mg [aspirin 81 mg chewable tablet (4 tabs)] Route: PO; lf1 16:58 Drug: Nitrostat 0.4 mg [Nitrostat 0.4 mg sublingual tablet (1 tabs)] {Note: 143/67 HR lf1 70.} Route: Sublingual; 17:20 Follow up: BP 125 / 59; Pulse 68 bpm; Pain 4/10 Adult; Response: No Adverse Reaction; lf1 No significant change. 22:10 Drug: Nitrofurantoin 100 mg [nitrofurantoin macrocrystal 50 mg capsule (2 caps)] Route: mv5 PO; 22:59 Follow up: Response: No Adverse Reaction mv5 Signatures: Dispatcher [employer] EDJuly Etienne, Reg Reg gb Wolfgang Malik MD MD br1 Mimi Ashley mt4 Rudy Traylor RN RN ml6 Kay Bonds b Anupama Christina RN RN mv5 Mayte Nguyen RN lf1 The chart was reviewed and I authenticate all verbal orders and agree with the evaluation and treatment provided.Attachments: 17:05 [facility] Payment Agreement gj 05/23 09:24 T-Sheet-- Draft Copy gb 09:24 ECG/EKG gb Chart Complete MTDD
--- NOTE | 2016-05-25 13:55 | EDDOCDS ---
Physician Documentation [facility] Name: Ellyn Ambrocio Age: 66 yrs Sex: Female : 1950 Arrival Date: 05/22/2016 Time: 15:41 Bed OBSERVATION Private MD: Marlon Crooks E. Disposition: 05/22/16 22:41 Discharged to Home/Self Care. Impression: Urinary tract infection, site not specified, Chest pain, unspecified. - Condition is Stable. - Discharge Instructions: Nonspecific Chest Pain, Urinary Tract Infection. - Prescriptions for Macrobid 100 mg Oral Capsule - take 100 milligrams by ORAL route every 12 hours for 7 days; 14 capsule. - Medication Reconciliation, Local Pharmacy Hours form. - Follow up: Marlon Crooks; When: 2 - 3 days; Reason: Recheck today's complaints. Follow up: Joe Jackson; When: 2 - 3 days; Reason: Recheck today's complaints. - Problem is new. - Symptoms are resolved. - Notes: You were seen in the ED for burining on urination concerning for urinary tract infection. You may take the antibiotics as written. You also mentioned chest pain. Bloodwork along with EKG of the heart and chest Xray showed no acute findings at this time. You will need to see your primary doctor and your barrel cooper within 2-3 days for further follow-up and evaluation - please call these offices in the morning to arrange to be seen.
Return to the ED for any return of chest pain, trouble breathing, lightheadedness, loss of consciousness or any other concerns. Historical: - Allergies: NSAIDS; IV Dye; Biaxin; Cipro IV; PENICILLINS; Codeine Sulfate; SULFA (SULFONAMIDES); Latex; Prednisone; Levaquin; Clindamycin; Lianne 128; - Home Meds: 1. Ativan 0.5 mg Oral tab 1 tab 3 times per day (Last dose: Unknown) 2. Bumex 2 mg Oral tab 1 tab 2 times per day (Last dose: Unknown) 3. aspirin 81 mg Oral tab 1 tab once daily (Last dose: Unknown) 4. flaxseed oil 1,000 mg oral cap daily (Last dose: Unknown) 5. Acidophilus 1200 Oral cap daily (Last dose: Unknown) 6. Rocaltrol 0.5 mcg Oral cap 1 cap once daily (Last dose: Unknown) 7. simvastatin 40 mg Oral tab 1 tab once daily (Last dose: Unknown) 8. cranberry 500 mg oral cap daily (Last dose: Unknown) 9. Jasmin 180 mg Oral tab 1 tab once daily (Last dose: Unknown) 10. Nasacort AQ 55 mcg Nasal spra 1 spray once daily (Last dose: Unknown) 11. Restasis 0.05 % ophthalmic dpet 1 drop every 12 hours (Last dose: Unknown) 12. Alrex 0.2 % ophthalmic drps 1 drop 4 times per day (Last dose: Unknown) 13. Zofran (as hydrochloride) 4 mg Oral tab 4 mg every 12 hours (Last dose: Unknown) 14. Xyzal 5 mg oral tab 2 tab nightly (Last dose: Unknown) 15. Combivent 18-103 mcg/actuation Inhl aero 2 puffs 4 times per day (Last dose: Unknown) 16. trazodone 100 mg Oral tab 2 tabs 2 times per day (Last dose: Unknown) 17. Synthroid 137 mcg Oral tab 1 tab once daily (Last dose: Unknown) 18. Lantus 25 units AM 90 units PM Sub-Q soln (Last dose: Unknown) 19. Prilosec 40 mg Oral cpDR 1 cap once daily (Last dose: Unknown) 20. Victoza 3-Solis 0.6 mg/0.1 mL (18 mg/3 mL) subcutaneous pnij 0.2 mL once daily (Last dose: Unknown) 21. tramadol 50 mg Oral tab 1 tab every 6 hours (Last dose: Unknown) 22. Vesicare 10 mg oral tab 1 tab once daily (Last dose: Unknown) 23. atenolol 50 mg Oral tab 1 tab once daily (Last dose: Unknown) 24. Effexor 75 mg Oral tab 1 tab 3 times per day (Last dose: Unknown) - PMHx: Depression; Anxiety; AO; Fibromyalgia; GERD; Hypothyroidism; ESRD III; Hypertension; Hypercholesterolemia; Diabetes - IDDM: uncontrolled; umbilical hernia; probable meniere's disease; Sleep Apnea w/ BiPap; Fatty Liver, Non-alchoholic; hepatomegally; Obesity; - PSHx: Hysterectomy; laminectomy L3-4, 4-5; Oophorectomy- bilateral; Tonsillectomy; Cholecystectomy; right and left knee replacement; Colonoscopy; - Social history: Smoking status: Patient states was never smoker of tobacco. No barriers to communication noted, Speaks appropriately for age. - Family history: No immediate family members are acutely ill. - : The pt / caregiver states he / she is not on anticoagulants. Home medication list is obtained from the patient. - Exposure Risk Screening:: None identified. Vital Signs: 05/22 15:44 BP 157 / 85 RA Sitting (auto/reg); Pulse 75; Resp 18; Temp 97.5(O); Pulse Ox 96% on jrd R/A; Weight 151.95 kg / 334.99 lbs (R); Height 5 ft. 8 in. (172.72 cm) (R); Pain 8/10; 16:01 BP 135 / 63 (auto/); lf1 16:04 Pulse 72 MON; Pulse Ox 96% ; lf1 16:16 BP 131 / 60 (auto/); lf1 16:16 Pulse 70 MON; Pulse Ox 91% ; lf1 16:31 BP 128 / 60 (auto/); lf1 16:31 Pulse 70 MON; Pulse Ox 91% ; lf1 16:46 BP 149 / 73 (auto/); lf1 16:46 Pulse 68 MON; Pulse Ox 91% ; lf1 16:54 BP 143 / 67 (auto/); lf1 16:54 Pulse 66 MON; Resp 16; Pulse Ox 91% ; Pain 7/10; lf1 17:16 BP 123 / 59 (auto/); lf1 17:16 Pulse 68 MON; Pulse Ox 93% ; lf1 17:17 BP 123 / 58 (auto/); lf1 17:17 Pulse 68 MON; Resp 16; Pulse Ox 93% ; lf1 17:20 BP 125 / 59; Pulse 68; Pain 4/10; lf1 17:30 Pulse 66 MON; Pulse Ox 92% ; lf1 17:31 BP 126 / 60 (auto/); lf1 17:46 BP 137 / 64 (auto/); lf1 17:46 Pulse 66 MON; Pulse Ox 89% on R/A; lf1 17:54 Pulse 66 MON; Pulse Ox 94% on 2 lpm NC; lf1 19:35 BP 139 / 70 (auto/); mv5 19:35 Pulse 76 MON; mv5 20:05 BP 132 / 60 (auto/); mv5 20:05 Pulse 68 MON; Pulse Ox 96% ; mv5 20:35 BP 128 / 58 (auto/); mv5 20:35 Pulse 68 MON; Pulse Ox 96% ; mv5 21:05 BP 157 / 69 (auto/); mv5 21:05 Pulse 68 MON; Pulse Ox 98% ; mv5 22:09 BP 156 / 74 (auto/); mv5 22:09 Pulse 70 MON; Pulse Ox 92% ; mv5 22:55 Pulse 70 MON; Resp 16; Temp 98.9(O); Pulse Ox 97% ; mv5 15:44 Body Mass Index 50.94 (151.95 kg, 172.72 cm) jrd 17:17 Back pain 7 chest pain 4 lf1 MDM: 15:56 ECG WITH READING ER PHYS+CARDIAG ordered. EDMS 16:12 Automation Qa Lead/Pulse Ox/q 30 min VS ordered. br1 16:12 IV Saline Lock ordered. br1 16:12 Rhythm Strip to chart ordered. br1 16:12 Undress patient appropriately for examination ordered. br1 16:12 Aspirin 324 mg PO once ordered. br1 16:13 Basic Metabolic Profile Ordered. EDMS 16:13 CBC with Diff Ordered. EDMS 16:13 Cardiac Injury Profile Ordered. EDMS 16:13 Troponin Ordered. EDMS 16:13 Urinalysis Ordered. EDMS 16:13 Urine Culture Ordered. EDMS 16:13 Chest, 2 View (pa\E\lat) Ordered. EDMS 16:22 Nitrostat 0.4 mg Sublingual once ordered. br1 16:39 Financial registration complete. gjb 17:05 [facility] Payment Agreement was scanned into [employer] and attached to record. gjb 17:35 Basic Metabolic Profile Reviewed. br1 17:35 Cardiac Injury Profile Reviewed. br1 17:35 Troponin Reviewed. br1 17:47 DIFFERENTIAL NO CHARGE Ordered. EDMS 17:57 CBC with Diff Reviewed. br1 17:57 PLATELET ESTIMATE Reviewed. br1 17:57 Chest, 2 View (pa\E\lat) Reviewed. br1 17:58 Repeat EKG (put time details section) ordered. br1 17:58 Redraw CIP &Troponin (put time in details section) ordered. br1 17:58 Admit to ED Observation status ordered. br1 18:00 Admit to ED Observation status complete. mt4 18:07 ECG WITH READING ER PHYS ordered. EDMS 18:07 CARDIAC MARKER PANEL Ordered. EDMS 18:13 Redraw CIP &Troponin (put time in details section) complete. mt4 18:13 Repeat EKG (put time details section) complete. mt4 21:57 Urinalysis Reviewed. br1 21:57 EKG-ADULT Reviewed. br1 21:58 Nitrofurantoin 100 mg PO once ordered. br1 22:21 CARDIAC MARKER PANEL Reviewed. br1 05/23 09:24 T-Sheet-- Draft Copy was scanned into [employer] and attached to record. gb 09:24 ECG/EKG was scanned into [employer] and attached to record. gb Administered Medications: 05/22 16:58 Drug: Aspirin 324 mg [aspirin 81 mg chewable tablet (4 tabs)] Route: PO; lf1 16:58 Drug: Nitrostat 0.4 mg [Nitrostat 0.4 mg sublingual tablet (1 tabs)] {Note: 143/67 HR lf1 70.} Route: Sublingual; 17:20 Follow up: BP 125 / 59; Pulse 68 bpm; Pain 4/10 Adult; Response: No Adverse Reaction; lf1 No significant change. 22:10 Drug: Nitrofurantoin 100 mg [nitrofurantoin macrocrystal 50 mg capsule (2 caps)] Route: mv5 PO; 22:59 Follow up: Response: No Adverse Reaction mv5 Signatures: Dispatcher [employer] EDJuly Etienne, Reg Reg gb Wolfgang Malik MD MD br1 Mimi Ashley mt4 Rudy Traylor RN RN ml6 Kay Bonds b Anupama Christina RN RN mv5 Mayte Nguyen RN lf1 The chart was reviewed and I authenticate all verbal orders and agree with the evaluation and treatment provided.Attachments: 17:05 [facility] Payment Agreement gj 05/23 09:24 T-Sheet-- Draft Copy gb 09:24 ECG/EKG gb Chart Complete MTDD
--- NOTE | 2016-05-25 13:56 | EDDOCDS ---
Nurse's Notes [facility] Name: Ellyn Ambrocio Age: 66 yrs Sex: Female : 1950 Arrival Date: 05/22/2016 Time: 15:41 Bed OBSERVATION Private MD: Marlon Crooks E. Diagnosis: Urinary tract infection, site not specified;Chest pain, unspecified Presentation: 05/22 15:56 Presenting complaint: Patient states: states chest pain and upper back pain since ml6 . Aspirin was not taken prior to arrival. Adult Sepsis Screening: The patient does not have new or worsening altered mentation. Patient's respiratory rate is less than 22. Systolic blood pressure is greater than 100. Patient has a qSOFA score of 0- Negative Sepsis Screen. Suicide/Homicide risk assessment- the patient denies having any suicidal and/or homicidal ideations and does not present with any other emotional, behavioral or mental health complaints. 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 Transition of care: patient was not received from another setting of care. 15:56 Acuity: JOSELO Level 3 ml6 15:56 Method Of Arrival: Walkin/Carried/Asstd ml6 Triage Assessment: 15:56 General: Appears in no apparent distress, Behavior is anxious. Pain: Location: back and ml6 chest Pain currently is 6 out of 10 on a pain scale. Pain does not radiate. Quality of pain is described as sharp, Pain began 2-3 days ago Is continuous. HIV screening NA for this visit Offered previously. Cardiovascular: Capillary refill < 3 seconds is brisk in bilateral fingers toes Heart tones S1 S2 present Edema is absent. Pulses are all present. Chest pain is described as mild, quality is stabbing, is located in anterior chest wall radiates back episodes are continuous began 3-4 days. Respiratory: No deficits noted. Historical: - Allergies: NSAIDS; IV Dye; Biaxin; Cipro IV; PENICILLINS; Codeine Sulfate; SULFA (SULFONAMIDES); Latex; Prednisone; Levaquin; Clindamycin; Lianne 128; - Home Meds: 1. Ativan 0.5 mg Oral tab 1 tab 3 times per day (Last dose: Unknown) 2. Bumex 2 mg Oral tab 1 tab 2 times per day (Last dose: Unknown) 3. aspirin 81 mg Oral tab 1 tab once daily (Last dose: Unknown) 4. flaxseed oil 1,000 mg oral cap daily (Last dose: Unknown) 5. Acidophilus 1200 Oral cap daily (Last dose: Unknown) 6. Rocaltrol 0.5 mcg Oral cap 1 cap once daily (Last dose: Unknown) 7. simvastatin 40 mg Oral tab 1 tab once daily (Last dose: Unknown) 8. cranberry 500 mg oral cap daily (Last dose: Unknown) 9. Jasmin 180 mg Oral tab 1 tab once daily (Last dose: Unknown) 10. Nasacort AQ 55 mcg Nasal spra 1 spray once daily (Last dose: Unknown) 11. Restasis 0.05 % ophthalmic dpet 1 drop every 12 hours (Last dose: Unknown) 12. Alrex 0.2 % ophthalmic drps 1 drop 4 times per day (Last dose: Unknown) 13. Zofran (as hydrochloride) 4 mg Oral tab 4 mg every 12 hours (Last dose: Unknown) 14. Xyzal 5 mg oral tab 2 tab nightly (Last dose: Unknown) 15. Combivent 18-103 mcg/actuation Inhl aero 2 puffs 4 times per day (Last dose: Unknown) 16. trazodone 100 mg Oral tab 2 tabs 2 times per day (Last dose: Unknown) 17. Synthroid 137 mcg Oral tab 1 tab once daily (Last dose: Unknown) 18. Lantus 25 units AM 90 units PM Sub-Q soln (Last dose: Unknown) 19. Prilosec 40 mg Oral cpDR 1 cap once daily (Last dose: Unknown) 20. Victoza 3-Solis 0.6 mg/0.1 mL (18 mg/3 mL) subcutaneous pnij 0.2 mL once daily (Last dose: Unknown) 21. tramadol 50 mg Oral tab 1 tab every 6 hours (Last dose: Unknown) 22. Vesicare 10 mg oral tab 1 tab once daily (Last dose: Unknown) 23. atenolol 50 mg Oral tab 1 tab once daily (Last dose: Unknown) 24. Effexor 75 mg Oral tab 1 tab 3 times per day (Last dose: Unknown) - PMHx: Depression; Anxiety; AO; Fibromyalgia; GERD; Hypothyroidism; ESRD III; Hypertension; Hypercholesterolemia; Diabetes - IDDM: uncontrolled; umbilical hernia; probable meniere's disease; Sleep Apnea w/ BiPap; Fatty Liver, Non-alchoholic; hepatomegally; Obesity; - PSHx: Hysterectomy; laminectomy L3-4, 4-5; Oophorectomy- bilateral; Tonsillectomy; Cholecystectomy; right and left knee replacement; Colonoscopy; - Social history: Smoking status: Patient states was never smoker of tobacco. No barriers to communication noted, Speaks appropriately for age. - Family history: No immediate family members are acutely ill. - : The pt / caregiver states he / she is not on anticoagulants. Home medication list is obtained from the patient. - Exposure Risk Screening:: None identified. Screenin:54 Screening information is obtained from the patient. Fall risk: No risks identified. lf1 Assistance ADL's: requires no assistance with activities of daily living. Abuse/DV Screen: The patient / caregiver reports he/she is:. Nutritional screening: No deficits noted. Advance Directives: Currently, there is no health care proxy. home support is adequate. Assessment: 16:58 Adult Sepsis Screening: The patient does not have new or worsening altered mentation. lf1 Patient's respiratory rate is less than 22. Systolic blood pressure is greater than 100. Patient has a qSOFA score of 0- Negative Sepsis Screen. General: Appears in no apparent distress, comfortable, obese, Behavior is cooperative. General: Pt reports back pain is chronic and 7/10 Chest pain began yesterday while coughing and is currently 4/10. Pain: Location: chest and back Pain currently is 7 out of 10 on a pain scale. Neurological: Level of Consciousness is awake, alert, obeys commands, Oriented to person, place, time. Cardiovascular: Rhythm is regular. Respiratory: Respiratory effort is even, unlabored, Respiratory pattern is regular, Breath sounds are diminished Difficult to auscultate due to body habitus Reports cough that is. GI: Reports constipation, diarrhea, lower abdominal pain, upper abdominal pain, chronic abdominal pain and intermittent constipation. : Reports burning with urination urgency urinary frequency vaginal itching possible yeast infection. 17:21 General: Appears in no apparent distress, comfortable, obese, Behavior is cooperative. lf1 Pain: Location: chest and back Pain currently is 4 out of 10 on a pain scale. Neurological: Level of Consciousness is awake, alert. Respiratory: Respiratory effort is even, unlabored. GI: Reports lower abdominal pain, upper abdominal pain. : Reports burning with urination urgency urinary frequency vaginal itching. Derm: Skin is normal. 17:54 General: Appears in no apparent distress, comfortable, obese, Behavior is cooperative, lf1 drowsy. Pain: Location: chest and back. Neurological: Level of Consciousness is awake. Respiratory: Respiratory effort is even, unlabored, Pt O2 sats 88-91% on RA pt. reports that she uses a CPAP at home , provider aware. O2 at 2L NC applied. GI: Abdomen is obese. 19:43 General: Appears in no apparent distress, comfortable, Behavior is cooperative, mv5 pleasant. Neurological: Level of Consciousness is awake, alert, Oriented to person, place, time. Cardiovascular: Rhythm is regular. Respiratory: Airway is patent Respiratory effort is even, unlabored, Respiratory pattern is regular. Derm: Skin is pink, warm & dry. 20:43 General: Appears in no apparent distress, comfortable. Respiratory: Airway is patent mv5 Respiratory effort is even, unlabored, Respiratory pattern is regular. Derm: Skin is pink, warm & dry. 21:42 General: Appears in no apparent distress. General: Awaiting repeat EKG.. Neurological: mv5 Level of Consciousness is awake, alert, Oriented to person, place, time. Respiratory: Airway is patent Respiratory effort is even, unlabored, Respiratory pattern is regular. Derm: Skin is pink, warm & dry. 21:45 Cardiovascular: Rhythm is regular. mv5 22:21 General: Appears in no apparent distress, meds as ordered, EKG repeated as ordered. . mv5 Neurological: Level of Consciousness is awake, alert, Oriented to person, place, time. Respiratory: Airway is patent Respiratory effort is even, unlabored, Respiratory pattern is regular. Derm: Skin is pink, warm & dry. 23:03 General: Appears in no apparent distress, comfortable, Behavior is cooperative, mv5 pleasant. Pain: Denies pain. Cardiovascular: No deficits noted. Respiratory: No deficits noted. Derm: Skin is pink, warm & dry. Vital Signs: 15:44 BP 157 / 85 RA Sitting (auto/reg); Pulse 75; Resp 18; Temp 97.5(O); Pulse Ox 96% on jrd R/A; Weight 151.95 kg (R); Height 5 ft. 8 in. (172.72 cm) (R); Pain 8/10; 16:01 BP 135 / 63 (auto/); lf1 16:04 Pulse 72 MON; Pulse Ox 96% ; lf1 16:16 BP 131 / 60 (auto/); lf1 16:16 Pulse 70 MON; Pulse Ox 91% ; lf1 16:31 BP 128 / 60 (auto/); lf1 16:31 Pulse 70 MON; Pulse Ox 91% ; lf1 16:46 BP 149 / 73 (auto/); lf1 16:46 Pulse 68 MON; Pulse Ox 91% ; lf1 16:54 BP 143 / 67 (auto/); lf1 16:54 Pulse 66 MON; Resp 16; Pulse Ox 91% ; Pain 7/10; lf1 17:16 BP 123 / 59 (auto/); lf1 17:16 Pulse 68 MON; Pulse Ox 93% ; lf1 17:17 BP 123 / 58 (auto/); lf1 17:17 Pulse 68 MON; Resp 16; Pulse Ox 93% ; lf1 17:20 BP 125 / 59; Pulse 68; Pain 4/10; lf1 17:30 Pulse 66 MON; Pulse Ox 92% ; lf1 17:31 BP 126 / 60 (auto/); lf1 17:46 BP 137 / 64 (auto/); lf1 17:46 Pulse 66 MON; Pulse Ox 89% on R/A; lf1 17:54 Pulse 66 MON; Pulse Ox 94% on 2 lpm NC; lf1 19:35 BP 139 / 70 (auto/); mv5 19:35 Pulse 76 MON; mv5 20:05 BP 132 / 60 (auto/); mv5 20:05 Pulse 68 MON; Pulse Ox 96% ; mv5 20:35 BP 128 / 58 (auto/); mv5 20:35 Pulse 68 MON; Pulse Ox 96% ; mv5 21:05 BP 157 / 69 (auto/); mv5 21:05 Pulse 68 MON; Pulse Ox 98% ; mv5 22:09 BP 156 / 74 (auto/); mv5 22:09 Pulse 70 MON; Pulse Ox 92% ; mv5 22:55 Pulse 70 MON; Resp 16; Temp 98.9(O); Pulse Ox 97% ; mv5 15:44 Body Mass Index 50.94 (151.95 kg, 172.72 cm) jrd 17:17 Back pain 7 chest pain 4 lf1 Vitals: 15:44 RN notified that patient meets Red Flag criteria. jrd 23:07 Log In Time: May 22, 2016 at 15:50. mv5 ED Course: 15:43 Patient visited by Mac Jalloh PCA. jrd 15:43 Patient moved to Waiting jrd 15:44 Marlon Crooks is Private Physician. jrd 15:46 Patient visited by Mac Jalloh PCA. jrd 15:46 Patient moved to Pre RCE jrd 15:51 Patient moved to [facility] 15:56 Triage Initiated ml6 16:00 competitive intelligence analyst on. Pulse ox on. NIBP on. lf1 16:00 Inserted saline lock: 20 gauge in left antecubital area and blood collected. The lf1 patient tolerated the procedure well. Labs drawn. (by ED staff). Sent per order to lab. 16:02 Gary Malik MD is Attending Physician. br1 16:03 Patient visited by José Miguel Marquez. jml1 16:03 EKG done. (by ED staff). Reviewed by Gary Malik MD. jml1 16:11 Patient visited by Gary Malik MD. br1 16:44 Patient visited by Leonardo Langford PCA. jlf 17:02 Patient visited by Mayte Nguyen,NHI. lf1 17:05 [facility] Payment Agreement was scanned into [employer] and attached to record. gjb 17:22 Patient visited by Mayte Nguyen,NHI. lf1 17:44 Chest, 2 View (pa\E\lat) Returned. EDMS 17:57 Patient visited by Mayte Nguyen RN. lf1 18:00 Patient moved to OBSERVATION mt4 19:18 Anupama Christina,RN is Primary Nurse. mv5 19:44 The patient / caregiver is instructed regarding the plan of care and ED course. mv5 21:07 EKG-ADULT Returned. EDMS 22:18 EKG done. (by ED staff). Reviewed by Gary aMlik MD. jmv 22:19 Patient visited by Lorenzo Scott PCA. jmv 22:41 Marlon Crooks is Referral Physician. br1 22:41 Joe Jackson is Referral Physician. br1 22:55 Discontinued intact, bleeding controlled, pressure dressing applied, No mv5 redness/swelling at site. No procedures done that require assistance. 05/23 09:24 T-Sheet-- Draft Copy was scanned into [employer] and attached to record. 09:24 ECG/EKG was scanned into [employer] and attached to record. gb 05/24 08:41 ECG WITH READING ER PHYS Returned. EDMS Administered Medications: 05/22 16:58 Drug: Aspirin 324 mg [aspirin 81 mg chewable tablet (4 tabs)] Route: PO; lf1 16:58 Drug: Nitrostat 0.4 mg [Nitrostat 0.4 mg sublingual tablet (1 tabs)] {Note: 143/67 HR lf1 70.} Route: Sublingual; 17:20 Follow up: BP 125 / 59; Pulse 68 bpm; Pain 4/10 Adult; Response: No Adverse Reaction; lf1 No significant change. 22:10 Drug: Nitrofurantoin 100 mg [nitrofurantoin macrocrystal 50 mg capsule (2 caps)] Route: mv5 PO; 22:59 Follow up: Response: No Adverse Reaction mv5 Order Results: Lab Order: Basic Metabolic Profile; SPEC'M 05/22/16 16:40 Test: GLUCOSE, FASTING; Value: 188; Range: 80-110; Abnormal: Above high normal; Units: MG/DL; Status: F Test: BLOOD UREA NITROGEN; Value: 18; Range: 7-18; Units: MG/DL; Status: F Test: CREATININE FOR GFR; Value: 1.36; Range: 0.55-1.02; Abnormal: Above high normal; Units: MG/DL; Status: F Test: GLOMERULAR FILTRATION RATE; Value: 41.7; Range: >45; Abnormal: Below low normal; Status: F Test: SODIUM LEVEL; Value: 142; Range: 136-145; Units: MEQ/L; Status: F Test: POTASSIUM SERUM; Value: 4.0; Range: 3.5-5.1; Units: MEQ/L; Status: F Test: CHLORIDE LEVEL; Value: 104; Range: 98-107; Units: MEQ/L; Status: F Test: CARBON DIOXIDE LEVEL; Value: 31; Range: 21-32; Units: MEQ/L; Status: F Test: ANION GAP; Value: 7; Range: 8-16; Abnormal: Below low normal; Units: MEQ/L; Status: F Test: CALCIUM LEVEL; Value: 9.1; Range: 8.8-10.2; Units: MG/DL; Status: F Test Note: ; Units are mL/min/1.73 m2 Chronic Kidney Disease Staging per NKF: Stage I & II GFR >=60 Normal to Mildly Decreased Stage III GFR 30-59 Moderately Decreased Stage IV GFR 15-29 Severely Decreased Stage V GFR <15 Very Little GFR Left ESRD GFR <15 on INDUSTRIAL PIPEFITTER JOURNEYMAN Lab Order: CBC with Diff; SPEC'M 05/22/16 16:40 Test: WHITE BLOOD COUNT; Value: 7.5; Range: 4.0-10.0; Units: K/mm3; Status: F Test: RED BLOOD COUNT; Value: 4.17; Range: 4.00-5.40; Units: M/mm3; Status: F Test: HEMOGLOBIN; Value: 13.9; Range: 12.0-16.0; Units: g/dl; Status: F Test: HEMATOCRIT; Value: 39.8; Range: 36.0-47.0; Units: %; Status: F Test: MEAN CORPUSCULAR VOLUME; Value: 95.5; Range: 80.0-96.0; Units: fl; Status: F Test: MEAN CORPUSCULAR HEMOGLOBIN; Value: 33.4; Range: 27.0-33.0; Abnormal: Above high normal; Units: pg; Status: F Test: MEAN CORPUSCULAR HGB CONC; Value: 35.0; Range: 32.0-36.5; Units: g/dl; Status: F Test: RED CELL DISTRIBUTION WIDTH; Value: 14.1; Range: 11.5-14.5; Units: %; Status: F Test: PLATELET COUNT, AUTOMATED; Value: 221; Range: 150-450; Units: k/mm3; Status: F Test: NEUTROPHILS; Value: 57; Range: 35-75; Units: %; Status: F Test: LYMPHOCYTES; Value: 31; Range: 16-52; Units: %; Status: F Test: MONOCYTES; Value: 5; Range: 0-8; Units: %; Status: F Test: EOSINOPHILS; Value: 6; Range: 0-5; Abnormal: Above high normal; Units: %; Status: F Test: BASOPHILS; Value: 1; Range: 0-4; Units: %; Status: F Test: RBC MORPHOLOGY; Value: NORMAL; Status: F Lab Order: Cardiac Injury Profile; [facility] 05/22/16 16:40 Test: CPK CREATINE PHOSPHOKINASE; Value: 84; Range: 26-192; Units: U/L; Status: F Test: CK-MB VALUE MASS; Value: 2.4; Range: 0.0-3.6; Units: NG/ML; Status: F Test: MB/CK RELATIVE INDEX; Value: 2.85; Range: < OR =4; Status: F Test Note: ; DIAGNOSIS CRITERIA MMB ng/ml Relative Index (RI) NON-AMI < or = 5 N/A [place] > 5 < or = 4 AMI > 5 > 4 Lab Order: Troponin; [facility] 05/22/16 16:40 Test: TROPONIN I; Value: < 0.02; Range: < 0.10; Units: NG/ML; Status: F Test Note: ; Troponin I Reference Interval for [employer] LOCI: 99th Percentile= 0.00-0.045 ng/ml Risk Stratification: <= 0.10 ng/ml Decreased Risk for Adverse Clinical Events. 0.10-1.50 ng/ml Increased Risk for Adverse Clinical Events. Evaluation of additional criterion and/or repeat testing in 2-6 hours is suggested to rule out myocardial damage. >= 1.50 ng/ml Indicative of Myocardial Injury. Lab Order: Urinalysis; [facility] 05/22/16 16:33 Test: APPEARANCE, URINE; Value: HAZY; Range: CLEAR; Status: F Test: COLOR, URINE; Value: YELLOW; Range: YELLOW; Status: F Test: PH,URINE; Value: 5.0; Range: 5.0-9.0; Units: UNITS; Status: F Test: SPECIFIC GRAVITY URINE AUTO; Value: 1.028; Range: 1.002-1.035; Status: F Test: PROTEIN, URINE AUTO; Value: 1+; Range: NEGATIVE; Abnormal: Above high normal; Units: mg/dL; Status: F Test: GLUCOSE, URINE (UA) AUTO; Value: NEGATIVE; Range: NEGATIVE; Units: mg/dL; Status: F Test: KETONE, URINE AUTO; Value: NEGATIVE; Range: NEGATIVE; Units: mg/dL; Status: F Test: UROBILINOGEN, URINE AUTO; Value: 0.2; Range: 0.0-2.0; Units: mg/dL; Status: F Test: BILIRUBIN, URINE AUTO; Value: NEGATIVE; Range: NEGATIVE; Status: F Test: NITRITE, URINE AUTO; Value: NEGATIVE; Range: NEGATIVE; Status: F Test: LEUKOCYTE ESTERASE, URINE AUTO; Value: TRACE; Range: NEGATIVE; Abnormal: Above high normal; Status: F Test: BLOOD, URINE BLOOD; Value: NEGATIVE; Range: NEGATIVE; Status: F Test: WBC, URINE AUTO; Value: 12; Range: 0-3; Abnormal: Above high normal; Units: /HPF; Status: F Test: RBC, URINE AUTO; Value: 2; Range: 0-3; Units: /HPF; Status: F Test: BACTERIA, URINE AUTO; Value: 1+; Range: NEGATIVE; Abnormal: Above high normal; Status: F Test: SQUAMOUS EPITHELIAL CELL UR AU; Value: 0; Range: 0-6; Units: /HPF; Status: F Test: MUCUS, URINE; Value: SMALL; Range: NEGATIVE; Status: F Test: HYALINE CAST, URINE AUTO; Value: 2; Range: 0-1; Units: /LPF; Status: F Lab Order: Urine Culture; SPEC'M 05/22/16 16:33 Test: URINE CULTURE; Value: <EXTERNAL COMMENT eCWMed> FULL REPORT IN LAB NOTES (eCW and Medent).; Status: F Test: URINE CULTURE; Value: ORGANISM 1: ENTEROCOCCUS FAECALIS; Status: F Test: URINE CULTURE; Value: ENTEROCOCCUS FAECALIS; Status: F Test: URINE CULTURE; Value: COLONY COUNT CFU/ml 20,000; Status: F Test: URINE CULTURE; Value: GRAM POS SENSI - VITEK 67; Status: F Test: URINE CULTURE; Value: Method: VIT2; Status: F Test: URINE CULTURE; Value: TETRACYCLINE <=1 S; Status: F Test: URINE CULTURE; Value: PENICILLIN G 2 S; Status: F Test: URINE CULTURE; Value: AMPICILLIN <=2 S; Status: F Test: URINE CULTURE; Value: ERYTHROMYCIN 2 I; Status: F Test: URINE CULTURE; Value: GENTAMICIN 500 S; Status: F Test: URINE CULTURE; Value: NITROFURANTOIN <=16 S; Status: F Test: URINE CULTURE; Value: LEVOFLOXACIN >=8 R; Status: F Test: URINE CULTURE; Value: CIPROFLOXACIN >=8 R; Status: F Test: URINE CULTURE; Value: VANCOMYCIN 1 S; Status: F Lab Order: PLATELET ESTIMATE; SPEC'M 05/22/16 16:40 Test: PLATELET ESTIMATE; Value: NORMAL; Range: NORMAL; Status: F Lab Order: CARDIAC MARKER PANEL; SPEC'M 05/22/16 21:22 Test: CPK CREATINE PHOSPHOKINASE; Value: 86; Range: 26-192; Units: U/L; Status: F Test: CK-MB VALUE MASS; Value: 2.5; Range: 0.0-3.6; Units: NG/ML; Status: F Test: MB/CK RELATIVE INDEX; Value: 2.90; Range: < OR =4; Status: F Test: TROPONIN I; Value: < 0.02; Range: < 0.10; Units: NG/ML; Status: F Test Note: ; DIAGNOSIS CRITERIA MMB ng/ml Relative Index (RI) NON-AMI < or = 5 N/A [place]ONE > 5 < or = 4 AMI > 5 > 4 Radiology Order: EKG-ADULT Test: EKG-ADULT REASON FOR EXAMINATION: Chest Pain; Stationary ECG Study; [facility] - ED; ; Test Date: 2016-05-22; Pat Name: ELLYN AMBROCIO Department:; Room: -; Gender: F Curing Supervisor: JT; : 1950 Requested By: Kristin Ford; Order Number: [id number] Reading MD: Kristin Ford; Measurements; Intervals [place]; Rate: 71 P: -65; [place]: 154 QRS: -12; QRSD: 106 T: 51; QT: 382; QTc: 418; Interpretive Statements; ECTOPIC ATRIAL RHYTHM; MINIMAL VOLTAGE CRITERIA FOR LVH, CONSIDER NORMAL VARIANT; SEPTAL MYOCARDIAL INFARCTION, OF INDETERMINATE AGE; ; Electronically Signed On 05-22-2016 20:25:01 EST by Kristin Ford; Radiology Order: Chest, 2 View (pa\E\lat) Test: Chest, 2 View (pa\E\lat) REASON FOR EXAMINATION: Chest Pain; Clinical: Acute chest pain .; ; Comparison: 02/15/2012 .; ; Technique: PA and lateral.; ; Findings:; The mediastinum and cardiac silhouette are normal. The lung rosales are clear and; without acute consolidation, effusion, or pneumothorax. The skeletal structures; are intact and normal.; ; Impression:; 1. No acute cardiopulmonary process.; ; ; Signed by; Joe Perez MD 05/22/2016 05:08 P; Radiology Order: ECG WITH READING ER PHYS Test: ECG WITH READING ER PHYS REASON FOR EXAMINATION: REPEAT EKG AT 2200; Stationary ECG Study; [facility] - ED; ; Test Date: 2016-05-22; Pat Name: ELLYN AMBROCIO Department:; Room: -; Gender: F Curing Supervisor: bhavik; : 1950 Requested By: GARY Wilde; Order Number: [id number] Reading MD: Kristin Ford; Measurements; Intervals [place]; Rate: 67 P: -59; [place]: 138 QRS: -20; QRSD: 101 T: 34; QT: 392; QTc: 417; Interpretive Statements; SINUS RHYTHM; MODERATE VOLTAGE CRITERIA FOR LVH, CONSIDER NORMAL VARIANT; POSSIBLE SEPTAL INFARCT, OLD; SIMILAR 15:57; Electronically Signed On 05-24-2016 8:21:13 EST by Kristin Ford; Outcome: 22:41 Discharge ordered by Provider. br1 22:55 Discharge Assessment: Patient awake, alert and oriented x 3. No cognitive and/or mv5 functional deficits noted. Patient verbalized understanding of disposition instructions. patient administered narcotics - no. 22:55 The following High Risk Discharge criteria are identified: None. Discharged to home mv5 ambulatory. Condition: stable. Demonstrated understanding of Pt was receptive of discharge instructions/ teaching. Prescriptions given X 1. 22:55 No special radiology studies were completed. Property sent home with patient. mv5 23:07 Patient left the ED. mv5 Addendum: 05/25/2016 13:49 Narrative: Urine culture results reviewed with Christiano Stanley NP and no change in kcs treatment needed. Signatures: Dispatcher [employer] EDMS Vale Santacruz RN RN July Gonzalez, Reg Reg Mayte Del RosarioRN RN 1 Gary Malik MD MD br1 Mimi Ashley mt4 Rudy Traylor, RN RN ml6 José Miguel Marquez jml1 Leonardo Langford, EVAPORATOR SUPERVISOR EVAPORATOR SUPERVISOR jlf Mac Jalloh, EVAPORATOR SUPERVISOR EVAPORATOR SUPERVISOR jrd Kay Bonds Jose, EVAPORATOR SUPERVISOR EVAPORATOR SUPERVISOR jmv Anupama Christina,RN RN mv5 Corrections: (The following items were deleted from the chart) 05/22 17:02 15:50 competitive intelligence analyst on. Pulse ox on. NIBP on. lf1 lf1 Chart Complete MTDD
== END 2016-05-22 23:07 | disposition home or self-care (01) ==
LOC: M ED 15:41
DX: R07.9 Chest pain, unspecified (principal); N39.0 Urinary tract infection, site not specified; F32.9 Major depressive disorder, single episode, unspecified; F41.9 Anxiety disorder, unspecified; M79.7 Fibromyalgia; K21.9 Gastro-esophageal reflux disease without esophagitis; I10 Essential (primary) hypertension; N18.3 Chronic kidney disease, stage 3 (moderate); E03.9 Hypothyroidism, unspecified; E78.00 Pure hypercholesterolemia, unspecified; E11.9 Type 2 diabetes mellitus without complications; G47.30 Sleep apnea, unspecified; K76.0 Fatty (change of) liver, not elsewhere classified; E66.9 Obesity, unspecified; R16.0 Hepatomegaly, not elsewhere classified; Z96.651 Presence of right artificial knee joint; Z96.652 Presence of left artificial knee joint; Z79.82 Long term (current) use of aspirin; Z79.4 Long term (current) use of insulin; Z88.6 Allergy status to analgesic agent; Z91.041 Radiographic dye allergy status; Z88.1 Allergy status to other antibiotic agents; Z88.0 Allergy status to penicillin; Z88.5 Allergy status to narcotic agent; Z88.2 Allergy status to sulfonamides; Z91.040 Latex allergy status; Z88.8 Allergy status to other drugs, medicaments and biological substances

== ENCOUNTER → 2016-05-30 | Outpatient (REF) | payer OTHER ==
[2016-05-30 19:54] LABS: FREE T4 1.13 NG/DL (0.76-1.46)
[2016-05-31 07:47] LABS: CONTROL LINE MONO INT CTR LINE PRESENT
== END ==
LOC: M SFHCPLAZ 15:38
PROVIDERS: ATTEND Physician Assistant Medical
DX: R53.83 Other fatigue (principal)
CPT/HCPCS: 36415; 84439; 84443; 86308; 87070; 87077; 87205; G0463

== ENCOUNTER → 2016-06-02 | Outpatient (REF) | payer OTHER | LOC: M SFHCPLAZ 15:20 | PROVIDERS: ATTEND Family Medicine | DX: E11.9 Type 2 diabetes mellitus without complications (principal) ==

== ENCOUNTER → 2016-06-18 | Outpatient (CLI) | payer OTHER ==
[2016-06-18 15:03] LABS: CHOLESTEROL LEVEL 137 MG/DL (<200); TRIGLYCERIDES LEVEL 128 MG/DL (<150)
[2016-06-20 10:28] LABS: ALBUMIN 3.8 GM/DL (3.2-5.2); ALBUMIN/GLOBULIN RATIO 1.06 (1.00-1.93); ALKALINE PHOSPHATASE 72 U/L (45-117); ALT/SGPT 35 U/L (12-78); ANION GAP 8 MEQ/L (8-16); AST/SGOT 30 U/L (15-37); BILIRUBIN,TOTAL 0.3 MG/DL (0.2-1.0); BLOOD UREA NITROGEN 25 MG/DL (7-18); CALCIUM LEVEL 9.3 MG/DL (8.8-10.2); CARBON DIOXIDE LEVEL 28 MEQ/L (21-32); CHLORIDE LEVEL 108 MEQ/L (98-107); CREATININE FOR GFR 1.53 MG/DL (0.55-1.02); GLOMERULAR FILTRATION RATE 36.4 (>45); GLUCOSE, FASTING 112 MG/DL (80-110); POTASSIUM SERUM 3.8 MEQ/L (3.5-5.1); SODIUM LEVEL 144 MEQ/L (136-145); TOTAL PROTEIN 7.4 GM/DL (6.4-8.2)
== END ==
LOC: M LAB 13:32
PROVIDERS: ATTEND Family Medicine
DX: E78.5 Hyperlipidemia, unspecified (principal); E11.9 Type 2 diabetes mellitus without complications; E55.9 Vitamin D deficiency, unspecified; L64.9 Androgenic alopecia, unspecified; N39.0 Urinary tract infection, site not specified

== ENCOUNTER → 2016-07-07 | Outpatient (REF) | payer OTHER ==
[2016-07-07 18:16] LABS: FREE T4 1.12 NG/DL (0.76-1.46)
== END ==
LOC: M SFHCPLAZ 15:53
PROVIDERS: ATTEND Physician Assistant Medical
DX: R53.83 Other fatigue (principal); R30.0 Dysuria

== ENCOUNTER → 2016-07-12 | Outpatient (CLI) | payer OTHER ==
[~2016-07-12] MED LIST changes: +E-Z PAQUE 60% w/v SUSP 355ML BOTTLE As Ordered ONE; +E-Z-GAS II EFFERVESCENT PACKET (SODIUM BICARB./CITRIC ACID/SIMETHICONE) As Ordered ONE; +E-Z-HD 98% w/w 340GM SUSP BTL As Ordered ONE
--- NOTE | 2016-07-12 13:37 | REP ---
DOUBLE CONTRAST UPPER GI SERIES WITH KUB: 07/12/2016. Clinical history: Dysphagia. Comparison: 11/02/2008. Findings: [employer] film shows right upper quadrant surgical clips. Scattered stool and gas throughout the colon. Gas filled small bowel loops without dilatation noted. There are diffuse degenerative changes in the spine and hips. There are a few pelvic phleboliths. Right upper quadrant clips from prior cholecystectomy noted. AP and lateral CINE esophagram shows normal oropharyngeal transfer. There is some cricopharyngeal achalasia with delayed elevation of the cricopharyngeus and a Zenker's diverticulum noted on the lateral and AP swallows. There is extensive dysmotility with secondary and tertiary contractions. There is no persistent stricture, mass or extrinsic mass effect on the esophagus. Small hiatal hernia on this patient to remain reduced during the examination. There is no visible reflux during the course of the examination despite multiple positions and maneuvers. The stomach is well distended and has rugal fold thickness normal. Nodular impressions on the gastric antrum are by abnormal mucosal appearance. There may be a couple of other small nodules or polyps within the gastric mucosa. Full thickness normal. No mass or extrinsic mass effect aside from the polypoid filling defects. No sign of gastritis. Duodenum shows normal distensibility and fold thickness. There is a duodenal diverticulum on the mesenteric side of the second portion of the duodenum. Third and fourth portions of duodenum unremarkable as are the proximal loops of jejunum identified. Impression: 1. 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 Persistent indentation posteriorly during swallowing and a Zenker's diverticulum noted in the midline on the lateral and anterior swallowing projections of the cervical esophagus. 2. 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 The small hiatal hernia previously noted did not appear, no visible reflux during this examination. 3. Polypoid filling defects gastric antrum and elsewhere in the stomach, along rugal folds. No gastric or duodenal ulcer, duodenitis or extrinsic mass effect. There is a group of clips from prior cholecystectomy. No extrinsic mass effect on the stomach and duodenum. Recommend endoscopy. 4. Fluoroscopy time 2 minutes 5 seconds. Signed by Amadeo Johnson MD 07/12/2016 03:31 P
== END ==
LOC: M RAD 10:41
PROVIDERS: ATTEND Family Medicine
DX: R13.10 Dysphagia, unspecified (principal); K22.0 Achalasia of cardia; K22.5 Diverticulum of esophagus, acquired; R93.3 Abnormal findings on diagnostic imaging of other parts of digestive tract

== ENCOUNTER → 2016-10-23 | Outpatient (REF) | payer OTHER ==
[~2016-10-23] MED LIST changes: -DOCU240C PO; +DOCU240C8 PO; -E-Z PAQUE 60% w/v SUSP 355ML BOTTLE As Ordered ONE; -E-Z-GAS II EFFERVESCENT PACKET (SODIUM BICARB./CITRIC ACID/SIMETHICONE) As Ordered ONE; -E-Z-HD 98% w/w 340GM SUSP BTL As Ordered ONE; +SALI0.6523; -SALI0.653; +TRAZ-136 PO; -TRAZ100T4 PO; -VESI10TA PO; +VESI10TA2 PO
== END ==
LOC: M SFHCLERA 11:41
PROVIDERS: ATTEND Dermatology
DX: D36.7 Benign neoplasm of other specified sites (principal)

== ENCOUNTER → 2016-11-06 | Outpatient (REF) | payer OTHER ==
[2016-11-06 19:51] LABS: BASO # 0.1 K/mm3 (0.0-0.2); EOS # 0.2 K/mm3 (0.0-0.50); EOS % 2.8 % (0.0-3.0); LARGE UNSTAINED CELL # 0.2 K/mm3 (0.0-0.4); LARGE UNSTAINED CELL % 2.2 % (0.0-4.0); LYMPH # 2.8 K/mm3 (1.5-4.5); LYMPH % 35.1 % (24.0-44.0); MEAN CORPUSCULAR HGB CONC 33.7 g/dl (32.0-36.5); MEAN CORPUSCULAR VOLUME 91.9 fl (80.0-96.0); MONO # 0.5 K/mm3 (0.0-0.8); MONO % 7.3 % (0.0-5.0); NEUTROPHILS # 3.8 K/mm3 (1.8-7.7); NEUTROPHILS % 51.7 % (36.0-66.0); PLATELET COUNT, AUTOMATED 237 k/mm3 (150-450); RED CELL DISTRIBUTION WIDTH 13.6 % (11.5-14.5); WHITE BLOOD COUNT 7.4 K/mm3 (4.0-10.0)
[2016-11-06 19:59] LABS: ALBUMIN 3.8 GM/DL (3.2-5.2); ALBUMIN/GLOBULIN RATIO 1.06 (1.00-1.93); BILIRUBIN,TOTAL 0.4 MG/DL (0.2-1.0); CALCIUM LEVEL 9.4 MG/DL (8.8-10.2); CREATININE FOR GFR 1.57 MG/DL (0.55-1.02); GLOMERULAR FILTRATION RATE 35.3 (>45); MAGNESIUM LEVEL 2.4 MG/DL (1.8-2.4); PERCENT SATURATION 22.9 % (13.2-45.0); POTASSIUM SERUM 4.4 MEQ/L (3.5-5.1); TOTAL PROTEIN 7.4 GM/DL (6.4-8.2)
== END ==
LOC: M SFHCPLAZ 17:37
PROVIDERS: ATTEND Family Medicine
DX: D50.9 Iron deficiency anemia, unspecified (principal); I10 Essential (primary) hypertension; E11.9 Type 2 diabetes mellitus without complications; E55.9 Vitamin D deficiency, unspecified
CPT/HCPCS: 36415; 80053; 82306; 82728; 83036; 83550; 83735; 83970; 85025; G0463

== ENCOUNTER → 2016-12-28 | Outpatient (REF) | payer OTHER | LOC: M LAB REF 17:00 | PROVIDERS: ATTEND Physician Assistant | DX: S91.301D Unspecified open wound, right foot, subsequent encounter (principal); X58.XXXD Exposure to other specified factors, subsequent encounter; Y92.9 Unspecified place or not applicable; Y93.9 Activity, unspecified; Y99.9 Unspecified external cause status ==

== ENCOUNTER → 2017-05-15 | Outpatient (REF) | payer OTHER ==
[2017-05-15 19:28] LABS: BASO # 0.1 10^3/uL (0.0-0.2); BASO % 0.7 % (0.0-1.0); EOS # 0.2 10^3/uL (0.0-0.50); EOS % 2.1 % (0.0-3.0); HEMOGLOBIN 15.3 g/dl (12.0-16.0); IMMATURE GRANULOCYTE % 0.2 % (0-3.0); LYMPH # 2.5 10^3/uL (1.5-4.5); LYMPH % 31.2 % (24.0-44.0); MEAN CORPUSCULAR HEMOGLOBIN 30.8 pg (27.0-33.0); MEAN CORPUSCULAR HGB CONC 33.3 g/dl (32.0-36.5); MEAN CORPUSCULAR VOLUME 92.6 fl (80.0-96.0); MONO # 0.5 10^3/uL (0.0-0.8); MONO % 6.7 % (0.0-5.0); NEUTROPHILS # 4.7 10^3/uL (1.8-7.7); NEUTROPHILS % 59.1 % (36.0-66.0); PLATELET COUNT, AUTOMATED 241 10^3/uL (150-450); RED BLOOD COUNT 4.97 10^6/uL (4.00-5.40); RED CELL DISTRIBUTION WIDTH 13.3 % (11.5-14.5); RETIC HEMOGLOBIN EQUIVALENT 34.9 pg (24-36); RETICULOCYTE % 1.7 % (0.5-1.5)
[2017-05-15 19:35] LABS: APPEARANCE, URINE HAZY (CLEAR); BACTERIA, URINE AUTO NEGATIVE (NEGATIVE); BILIRUBIN, URINE AUTO 1+ (NEGATIVE); BLOOD, URINE BLOOD NEGATIVE (NEGATIVE); COLOR, URINE AMBER (YELLOW); GLUCOSE, URINE (UA) AUTO NEGATIVE (NEGATIVE); KETONE, URINE AUTO NEGATIVE (NEGATIVE); LEUKOCYTE ESTERASE, URINE AUTO 1+ (NEGATIVE); MUCUS, URINE SMALL (NEGATIVE); NITRITE, URINE AUTO NEGATIVE (NEGATIVE); PROTEIN, URINE AUTO 2+ mg/dL (NEGATIVE); RBC, URINE AUTO 7 /HPF (0-3); SPECIFIC GRAVITY URINE AUTO 1.033 (1.002-1.035); SQUAMOUS EPITHELIAL CELL UR AU 0 /HPF (0-6); WBC, URINE AUTO 19 /HPF (0-3)
[2017-05-15 20:07] LABS: ESTIMATED AVERAGE GLUCOSE 117 MG/DL (60-110); HEMOGLOBIN A1c 5.7 %
[2017-05-15 20:15] LABS: ALBUMIN 3.7 GM/DL (3.2-5.2); ALKALINE PHOSPHATASE 88 U/L (45-117); ALT/SGPT 22 U/L (12-78); ANION GAP 6 MEQ/L (8-16); AST/SGOT 18 U/L (7-37); BILIRUBIN,TOTAL 0.3 MG/DL (0.2-1.0); BLOOD UREA NITROGEN 17 MG/DL (7-18); CALCIUM LEVEL 9.5 MG/DL (8.8-10.2); CARBON DIOXIDE LEVEL 34 MEQ/L (21-32); CHLORIDE LEVEL 105 MEQ/L (98-107); CREATININE FOR GFR 1.39 MG/DL (0.55-1.30); GLOMERULAR FILTRATION RATE 40.5 (>45); GLUCOSE, FASTING 59 MG/DL (70-100); MAGNESIUM LEVEL 2.3 MG/DL (1.8-2.4); POTASSIUM SERUM 4.2 MEQ/L (3.5-5.1); SODIUM LEVEL 145 MEQ/L (136-145); TOTAL PROTEIN 7.4 GM/DL (6.4-8.2)
[2017-05-15 20:25] LABS: PTH INTACT 139.5 PG/ML (18.5-88.0); TOTAL 25(OH) VITAMIN D 73.5 NG/ML (30.0-100.0)
== END ==
LOC: M SFHCPLAZ 15:15
DX: E11.9 Type 2 diabetes mellitus without complications (principal); E55.9 Vitamin D deficiency, unspecified; I50.30 Unspecified diastolic (congestive) heart failure; D50.9 Iron deficiency anemia, unspecified; E03.9 Hypothyroidism, unspecified; N39.0 Urinary tract infection, site not specified
CPT/HCPCS: 83735

== ENCOUNTER → 2017-09-12 | Outpatient (REF) | payer OTHER ==
[2017-09-14 12:04] LABS: HEPATITIS B SURFACE ANTIBODY NEGATIVE (POSITIVE)
[2017-09-14 12:06] LABS: HEPATITIS B SURFACE ANTIGEN NEGATIVE (NEGATIVE)
[2017-09-14 12:30] LABS: HEPATITIS C VIRUS ABY INDEX 0.2 INDEX (<0.8)
[2017-09-14 12:31] LABS: HIV 1&2 SCREEN CENTAUR NEGATIVE (NEGATIVE)
== END ==
LOC: M SFHCPLAZ 16:17
DX: K11.21 Acute sialoadenitis (principal)
CPT/HCPCS: 86706

== ENCOUNTER → 2017-10-04 | Outpatient (REF) | payer OTHER ==
[2017-10-04 15:56] LABS: ALBUMIN 3.4 GM/DL (3.2-5.2); ALBUMIN/GLOBULIN RATIO 0.92 (1.00-1.93); ALKALINE PHOSPHATASE 83 U/L (45-117); ALT/SGPT 26 U/L (12-78); ANION GAP 7 MEQ/L (8-16); AST/SGOT 21 U/L (7-37); BILIRUBIN,TOTAL 0.3 MG/DL (0.2-1.0); BLOOD UREA NITROGEN 24 MG/DL (7-18); C REACTIVE PROTEIN QUANTITATIV 0.53 MG/DL (0.00-0.30); CALCIUM LEVEL 9.7 MG/DL (8.8-10.2); CARBON DIOXIDE LEVEL 32 MEQ/L (21-32); CHLORIDE LEVEL 105 MEQ/L (98-107); CHOLESTEROL LEVEL 158 MG/DL (<200); CHOLESTEROL RISK RATIO 3.853 (<5); CPK CREATINE PHOSPHOKINASE 52 U/L (26-192); CREATININE FOR GFR 1.56 MG/DL (0.55-1.30); GLOMERULAR FILTRATION RATE 35.5 (>45); GLUCOSE, FASTING 97 MG/DL (70-100); HDL CHOLESTEROL 41 MG/DL (>40); LDL CHOLESTEROL 72.2 MG/DL (<100); MAGNESIUM LEVEL 2.2 MG/DL (1.8-2.4); NON-HDL-C 117 MG/DL; POTASSIUM SERUM 4.5 MEQ/L (3.5-5.1); SODIUM LEVEL 144 MEQ/L (136-145); TOTAL PROTEIN 7.1 GM/DL (6.4-8.2); TRIGLYCERIDES LEVEL 224 MG/DL (<150)
[2017-10-04 16:01] LABS: PTH INTACT 115.4 PG/ML (18.5-88.0); TOTAL 25(OH) VITAMIN D 45.2 NG/ML (30.0-100.0)
[2017-10-04 16:11] LABS: ESTIMATED AVERAGE GLUCOSE 120 MG/DL (60-110); HEMOGLOBIN A1c 5.8 %
== END ==
LOC: M SFHCPLAZ 12:48
DX: E55.9 Vitamin D deficiency, unspecified (principal); E11.9 Type 2 diabetes mellitus without complications; Z79.899 Other long term (current) drug therapy
CPT/HCPCS: 82550

== ENCOUNTER 2017-10-26 12:25 | Day surgery (SDC) | payer OTHER ==
[~2017-10-26 12:25] MED LIST changes: -/ONDA4TA PO; -ALLE180T33 PO; -ALRE0.5S OU; -ATEN50TA2 PO; -ATIV0.5T PO; -BACLOFEN PO; -BUME2TAB; -CALC1CAP31 PO; -CALCCHW12 PO; -CARAFATE PO; -CENTTAB36 PO; -COMMENT; -DOCU240C8 PO; -EX-L5TAB; -FERR325T; -FERR325T3 PO; -FLAX SEED; -INSULIN LANTUS SQ; -LACTOBACILLUS; -LEVA500T; -LEVOTAB10 PO; +LIDOCAINE 2% INJ 100 MG/5 ML SDV (FOR ANES.) As Ordered; -LORAPOW30; -MAG CITRATE PO; -MAGN250T; -NITR4TASL SL; -PERC5TAB8; -POTA20TA2 PO; -PRED1TA; -PRIL20CA PO; +PROPOFOL 200 MG/20 ML VIAL As Ordered; -REST0.05 OU; -SALI0.6523; -SIMV40TA2 PO; -SYNT50TA PO; -SYST0.4D2 OU; -SYSTSOL11 OU; -THERGRAN; -TRAM50TA2 PO; -TRAMADOL; -TRAZ-136 PO; -VENL75TA2 PO; -VESI10TA2 PO; -VICTOZA SQ; -VIT D2 PO; -VITAMIN C; -[UNRECOGNIZED DRUG - OTHER] PO
[2017-10-26] MEDS ORDERED: LIDOCAINE 2% INJ 100 MG/5 ML SDV (FOR ANES.) As Ordered (12:37)
[2017-10-26] MEDS ORDERED: PROPOFOL 200 MG/20 ML VIAL As Ordered ×3 (12:37→14:12)
[2017-10-26] MEDS: NS 1,000 ML IV (13:24)
[2017-10-26 13:41] LABS: BEDSIDE GLUCOSE 104 MG/DL (80-115)
== END 2017-10-26 15:02 | disposition home or self-care (01) ==
LOC: M OPP 12:25
DX: Z12.11 Encounter for screening for malignant neoplasm of colon (principal); K64.0 First degree hemorrhoids; D12.0 Benign neoplasm of cecum; E03.9 Hypothyroidism, unspecified; I10 Essential (primary) hypertension; E78.00 Pure hypercholesterolemia, unspecified; E10.9 Type 1 diabetes mellitus without complications; I25.2 Old myocardial infarction; G47.30 Sleep apnea, unspecified; F32.9 Major depressive disorder, single episode, unspecified; F41.9 Anxiety disorder, unspecified; M79.7 Fibromyalgia; H81.09 Meniere's disease, unspecified ear; R51 Headache; Z79.4 Long term (current) use of insulin; Z79.82 Long term (current) use of aspirin; Z79.891 Long term (current) use of opiate analgesic; Z79.899 Other long term (current) drug therapy; Z88.0 Allergy status to penicillin; Z88.2 Allergy status to sulfonamides; Z88.3 Allergy status to other anti-infective agents; Z88.5 Allergy status to narcotic agent; Z88.8 Allergy status to other drugs, medicaments and biological substances; Z91.040 Latex allergy status; Z90.49 Acquired absence of other specified parts of digestive tract; Z95.5 Presence of coronary angioplasty implant and graft; Z90.710 Acquired absence of both cervix and uterus
CPT/HCPCS: 45385

== ENCOUNTER → 2018-03-19 | Outpatient (REF) | payer MEDICARE, OTHER ==
[~2018-03-19] MED LIST changes: +/ONDA4TA PO; +ACID100C PO; +ALLE180T33 PO; +ALRE0.5S OU; +ASPI1TAB PO; +ATEN50TA2 PO; +ATIV0.5T PO; +BACL10TA2 PO; +BACLOFEN PO; +BIOT50004 PO; +BUME2TAB PO; +CALC1CAP31 PO; +CALCCHW12 PO; +CARAFATE PO; +CENTTAB36 PO; +COMMENT; +DOCU100C16 PO; +DOCU240C9 PO; +DRIS50003 PO; +EX-L5TAB; +FERR325T; +FERR325T3 PO; +FLAX SEED; +FLAX100012 PO; +HAIRTAB5 PO; +INSULIN LANTUS SQ; +LACTOBACILLUS; +LEVA500T; +LEVOTAB10 PO; -LIDOCAINE 2% INJ 100 MG/5 ML SDV (FOR ANES.) As Ordered; +LORAPOW30; +MAG CITRATE PO; +MAGN250T; +NITR4TASL SL; +PENT10CA PO; +PERC5TAB8; +POTA20TA2 PO; +PRED1TA; +PRIL20CA PO; -PROPOFOL 200 MG/20 ML VIAL As Ordered; +REST0.05 OU; +SALI0.6528; +SIMV40TA2 PO; +SUCR1SUS PO; +SYNT50TA PO; +SYST0.4D2 OU; +SYSTSOL11 OU; +THERGRAN; +TRAM50TA2 PO; +TRAMADOL; +TRAZ-163 PO; +TRES1INJ2 SC; +VENL75TA2 PO; +VESI10TA2 PO; +VICT18IN SC; +VICTOZA SQ; +VIT D2 PO; +VITAMIN C; +[UNRECOGNIZED DRUG - OTHER] PO
== END ==
LOC: M SFHCPLAZ 15:46
PROVIDERS: ATTEND Physician Assistant Medical
DX: R19.7 Diarrhea, unspecified (principal)

== ENCOUNTER → 2018-03-20 | Outpatient (REF) | payer MEDICARE, OTHER ==
[2018-03-20 16:16] LABS: APPEARANCE, URINE CLOUDY (CLEAR); BACTERIA, URINE AUTO NEGATIVE (NEGATIVE); BILIRUBIN, URINE AUTO NEGATIVE (NEGATIVE); BLOOD, URINE BLOOD NEGATIVE (NEGATIVE); CALCIUM OXALATE CRYSTALS LARGE; COLOR, URINE AMBER (YELLOW); GLUCOSE, URINE (UA) AUTO NEGATIVE (NEGATIVE); KETONE, URINE AUTO NEGATIVE (NEGATIVE); LEUKOCYTE ESTERASE, URINE AUTO 1+ (NEGATIVE); MUCUS, URINE SMALL (NEGATIVE); NITRITE, URINE AUTO NEGATIVE (NEGATIVE); PROTEIN, URINE AUTO 1+ mg/dL (NEGATIVE); RBC, URINE AUTO 2 /HPF (0-3); SPECIFIC GRAVITY URINE AUTO 1.024 (1.002-1.035); SQUAMOUS EPITHELIAL CELL UR AU 1 /HPF (0-6); WBC, URINE AUTO 11 /HPF (0-3)
[2018-03-20 17:59] LABS: BILIRUBIN,TOTAL 0.3 MG/DL (0.2-1.0); C REACTIVE PROTEIN QUANTITATIV 2.26 MG/DL (0.00-0.30); CALCIUM LEVEL 9.3 MG/DL (8.8-10.2); CHOLESTEROL RISK RATIO 3.114 (<5); CREATININE FOR GFR 1.33 MG/DL (0.55-1.30); FREE T4 1.32 NG/DL (0.76-1.46); GLOMERULAR FILTRATION RATE 42.5 (>45); POTASSIUM SERUM 3.9 MEQ/L (3.5-5.1); THYROID STIMULATING HORMONE 1.59 uIU/ML (0.358-3.740); TOTAL PROTEIN 6.9 GM/DL (6.4-8.2)
[2018-03-20 18:00] LABS: BASO % 0.7 % (0.0-1.0); EOS # 0.3 10^3/uL (0.0-0.50); EOS % 6.3 % (0.0-3.0); HEMATOCRIT 44.5 % (36.0-47.0); HEMOGLOBIN 14.4 g/dl (12.0-15.5); LYMPH % 36.6 % (24.0-44.0); MEAN CORPUSCULAR HEMOGLOBIN 29.9 pg (27.0-33.0); MEAN CORPUSCULAR HGB CONC 32.4 g/dl (32.0-36.5); MEAN CORPUSCULAR VOLUME 92.3 fl (80.0-96.0); MONO # 0.5 10^3/uL (0.0-0.8); MONO % 8.9 % (0.0-5.0); NEUTROPHILS # 2.5 10^3/uL (1.8-7.7); NEUTROPHILS % 47.1 % (36.0-66.0); PLATELET COUNT, AUTOMATED 350 10^3/uL (150-450); RED BLOOD COUNT 4.82 10^6/uL (4.00-5.40); WHITE BLOOD COUNT 5.4 10^3/uL (4.0-10.0)
[2018-03-20 18:03] LABS: PTH INTACT 128.5 PG/ML (18.5-88.0)
== END ==
LOC: M SFHCPLAZ 14:33
PROVIDERS: ATTEND Family Medicine
DX: E11.9 Type 2 diabetes mellitus without complications (principal); N39.0 Urinary tract infection, site not specified

== ENCOUNTER → 2018-06-19 | Outpatient (REF) | payer MEDICARE ==
[2018-06-19 22:52] LABS: INFLUENZA A AMPLIFICATION NEGATIVE (NEGATIVE); INFLUENZA B AMPLIFICATION NEGATIVE (NEGATIVE)
== END ==
LOC: M LAB REF 10:54
PROVIDERS: ATTEND Physician Assistant
DX: J11.1 Influenza due to unidentified influenza virus with other respiratory manifestations (principal)

== ENCOUNTER → 2018-06-20 | Outpatient (REF) | payer MEDICARE | LOC: M SFHCPLAZ 09:51 | PROVIDERS: ATTEND Dermatology | DX: L57.0 Actinic keratosis (principal); D23.61 Other benign neoplasm of skin of right upper limb, including shoulder; D23.72 Other benign neoplasm of skin of left lower limb, including hip; R21 Rash and other nonspecific skin eruption ==

== ENCOUNTER 2018-07-26 21:39 | Emergency (ER) | payer MEDICARE, OTHER ==
[~2018-07-26] VITALS: Ht 172.7 cm; Wt 133.1 kg
[~2018-07-26 21:39] MED LIST changes: -/ONDA4TA PO; -ASPI1TAB PO; +ASPI81TA26 PO; +ONDA-1 PO
[2018-07-26] MEDS ORDERED: DIFL150T PO (23:58)
[2018-07-27] MEDS ORDERED: ACETAMINOPHEN 325 MG TAB PO ONE (00:15)
[2018-07-27 01:24] VITALS: BP 152/78
== END 2018-07-27 01:25 | disposition home or self-care (01) ==
LOC: M ED 21:39
DX: R32 Unspecified urinary incontinence (principal); L29.3 Anogenital pruritus, unspecified; E11.9 Type 2 diabetes mellitus without complications; K21.9 Gastro-esophageal reflux disease without esophagitis; F32.9 Major depressive disorder, single episode, unspecified; G89.29 Other chronic pain; M54.9 Dorsalgia, unspecified; D50.9 Iron deficiency anemia, unspecified; E66.9 Obesity, unspecified; Z79.82 Long term (current) use of aspirin; Z79.4 Long term (current) use of insulin; Z79.899 Other long term (current) drug therapy; Z88.6 Allergy status to analgesic agent; Z88.0 Allergy status to penicillin; Z88.8 Allergy status to other drugs, medicaments and biological substances; Z88.2 Allergy status to sulfonamides; Z88.5 Allergy status to narcotic agent; Z91.89 Other specified personal risk factors, not elsewhere classified; Z91.040 Latex allergy status

== ENCOUNTER → 2018-07-30 | Outpatient (CLI) | payer MEDICARE ==
[~2018-07-30] MED LIST changes: +DIFL150T PO
[2018-07-30 20:10] LABS: BASO # 0.1 10^3/uL (0.0-0.2); BASO % 0.9 % (0.0-1.0); EOS # 0.3 10^3/uL (0.0-0.50); EOS % 3.3 % (0.0-3.0); HEMATOCRIT 45.9 % (36.0-47.0); HEMOGLOBIN 14.9 g/dl (12.0-15.5); LYMPH # 2.9 10^3/uL (1.5-4.5); LYMPH % 38.3 % (24.0-44.0); MEAN CORPUSCULAR HEMOGLOBIN 29.2 pg (27.0-33.0); MEAN CORPUSCULAR HGB CONC 32.5 g/dl (32.0-36.5); MONO # 0.7 10^3/uL (0.0-0.8); MONO % 9.6 % (0.0-5.0); NEUTROPHILS # 3.6 10^3/uL (1.8-7.7); NEUTROPHILS % 47.6 % (36.0-66.0); PLATELET COUNT, AUTOMATED 267 10^3/uL (150-450); WHITE BLOOD COUNT 7.5 10^3/uL (4.0-10.0)
[2018-07-30 20:12] LABS: ALBUMIN 3.7 GM/DL (3.2-5.2); BILIRUBIN,TOTAL 0.4 MG/DL (0.2-1.0); CALCIUM LEVEL 9.8 MG/DL (8.8-10.2); CHOLESTEROL RISK RATIO 2.8 (<5); CREATININE FOR GFR 1.29 MG/DL (0.55-1.30); FREE T4 1.14 NG/DL (0.76-1.46); POTASSIUM SERUM 4.1 MEQ/L (3.5-5.1); THYROID STIMULATING HORMONE 3.55 uIU/ML (0.358-3.740); TOTAL PROTEIN 7.2 GM/DL (6.4-8.2)
== END ==
LOC: M WUC 16:01
PROVIDERS: ATTEND Physician Assistant
DX: E11.9 Type 2 diabetes mellitus without complications (principal)

== ENCOUNTER → 2018-09-13 | Outpatient (REF) | payer MEDICARE ==
[2018-09-13 18:46] LABS: APPEARANCE, URINE CLEAR (CLEAR); BACTERIA, URINE AUTO NEGATIVE (NEGATIVE); BILIRUBIN, URINE AUTO NEGATIVE (NEGATIVE); BLOOD, URINE BLOOD NEGATIVE (NEGATIVE); COLOR, URINE YELLOW (YELLOW); GLUCOSE, URINE (UA) AUTO NEGATIVE (NEGATIVE); KETONE, URINE AUTO NEGATIVE (NEGATIVE); LEUKOCYTE ESTERASE, URINE AUTO NEGATIVE (NEGATIVE); MUCUS, URINE SMALL (NEGATIVE); NITRITE, URINE AUTO NEGATIVE (NEGATIVE); PROTEIN, URINE AUTO NEGATIVE (NEGATIVE); RBC, URINE AUTO 0 /HPF (0-3); SPECIFIC GRAVITY URINE AUTO 1.014 (1.002-1.035); SQUAMOUS EPITHELIAL CELL UR AU 0 /HPF (0-6); UROBILINOGEN, URINE AUTO 0.2 mg/dL (0.0-2.0); WBC, URINE AUTO 0 /HPF (0-3)
== END ==
LOC: M SMT 17:08
PROVIDERS: ATTEND Nurse Practitioner Family
DX: N39.41 Urge incontinence (principal)

== ENCOUNTER → 2018-10-11 | Outpatient (CLI) | payer MEDICARE ==
[2018-10-11 16:54] LABS: HEMOGLOBIN A1c 6.2 %
[2018-10-11 16:55] LABS: ALBUMIN 3.6 GM/DL (3.2-5.2); BILIRUBIN,TOTAL 0.4 MG/DL (0.2-1.0); CALCIUM LEVEL 9.2 MG/DL (8.8-10.2); CREATININE FOR GFR 1.49 MG/DL (0.55-1.30); FREE T4 1.22 NG/DL (0.76-1.46); GLOMERULAR FILTRATION RATE 37.3 (>45); POTASSIUM SERUM 4.7 MEQ/L (3.5-5.1); THYROID STIMULATING HORMONE 0.826 uIU/ML (0.358-3.740)
== END ==
LOC: M WUC 11:52
PROVIDERS: ATTEND Physician Assistant
DX: I10 Essential (primary) hypertension (principal)

== ENCOUNTER → 2018-11-01 | Outpatient (CLI) | payer MEDICARE ==
[2018-11-01 13:01] LABS: HEMATOCRIT 44.8 % (36.0-47.0); HEMOGLOBIN 14.8 g/dl (12.0-15.5); MEAN CORPUSCULAR HEMOGLOBIN 29.9 pg (27.0-33.0); MEAN CORPUSCULAR VOLUME 90.5 fl (80.0-96.0); PLATELET COUNT, AUTOMATED 246 10^3/uL (150-450); RED BLOOD COUNT 4.95 10^6/uL (4.00-5.40); WHITE BLOOD COUNT 8.5 10^3/uL (4.0-10.0)
[2018-11-01 13:07] LABS: CALCIUM LEVEL 10.2 MG/DL (8.8-10.2); CREATININE FOR GFR 1.39 MG/DL (0.55-1.30); GLOMERULAR FILTRATION RATE 40.4 (>45); POTASSIUM SERUM 4.4 MEQ/L (3.5-5.1)
== END ==
LOC: M SMT 10:35
PROVIDERS: ATTEND Specialist
DX: N39.41 Urge incontinence (principal)
CPT/HCPCS: 36415; 52000; 80048; 85027; G0463

== ENCOUNTER → 2018-12-17 | Outpatient (CLI) | payer MEDICARE ==
[~2018-12-17] MED LIST changes: +CYMB1CAP5 PO; +TOLT4CAP3 PO
--- NOTE | 2018-12-17 18:54 | REP ---
CHEST, TWO VIEWS: Two views of the chest are performed. Comparison 05/22/2016. The heart is upper limits of normal in size. There is no acute infiltrate. There is mild calcification and tortuosity of the thoracic aorta. The mediastinal silhouette is unchanged. There are degenerative changes of the spine. IMPRESSION: No acute pulmonary disease. Unreviewed
== END ==
LOC: M SMT 15:07
PROVIDERS: ATTEND Specialist
DX: Z01.818 Encounter for other preprocedural examination (principal); N39.41 Urge incontinence

== ENCOUNTER → 2018-12-17 | Outpatient (REF) | payer MEDICARE ==
[2018-12-17 19:05] LABS: BACTERIA, URINE AUTO 2+ (NEGATIVE); MUCUS, URINE MODERATE (NEGATIVE); RBC, URINE AUTO 3 /HPF (0-3); SQUAMOUS EPITHELIAL CELL UR AU 0 /HPF (0-6); WBC, URINE AUTO TNTC /HPF (0-3)
== END ==
LOC: M SMT 16:54
PROVIDERS: ATTEND Specialist
DX: Z01.818 Encounter for other preprocedural examination (principal); N39.41 Urge incontinence; N32.81 Overactive bladder

== ENCOUNTER 2018-12-23 08:05 | Day surgery (SDC) | payer MEDICARE ==
[~2018-12-23] VITALS: Ht 170.2 cm; Wt 140.1 kg
[~2018-12-23 08:05] MED LIST changes: +GENTAMICIN 100 MG in APPROPRIATE DILUENT 1 EA IV ONE; +LR 1,000 ML IV ONE
[2018-12-23] MEDS ORDERED: MACR100C43 PO (08:41)
[2018-12-23] MEDS ORDERED: ASPIRIN 81 MG CHEW TABLET PO ONE (09:00)
[2018-12-23] MEDS ORDERED: D5W/0.45% SODIUM CHLORIDE 1,000 ML IV ONE (09:00)
[2018-12-23] MEDS ORDERED: ASPIRIN 81 MG CHEW TABLET As Ordered ONE (09:14)
[2018-12-23] MEDS ORDERED: MIDAZOLAM INJ 2 MG/2 ML VIAL (J2250) As Ordered ONE (09:30)
[2018-12-23] MEDS ORDERED: fentaNYL 100 MCG/2 ML INJECTION (J3010) As Ordered ONE (09:30)
[2018-12-23] MEDS ORDERED: LIDOCAINE 2% INJ 100 MG/5 ML SDV (FOR ANES.) As Ordered ONE (09:32)
[2018-12-23] MEDS ORDERED: PROPOFOL 200 MG/20 ML VIAL As Ordered ONE (09:32)
[2018-12-23] MEDS ORDERED: dexameTHASONE 4 MG/ML 1ML VIAL (J1100) As Ordered ONE (09:32)
[2018-12-23] MEDS ORDERED: ONDANSETRON 4MG/2ML VIAL (J2405) As Ordered ONE (09:32)
[2018-12-23] MEDS ORDERED: LIDOCAINE 1% MDV INJ 50 ML VIAL As Ordered ONE (09:33)
[2018-12-23] MEDS ORDERED: LIDOCAINE 2% 5ML JELLY UROJET As Ordered ONE (09:33)
[2018-12-23] MEDS ORDERED: BOTULINUM INJ 100 UNITS (J0585) As Ordered ONE (09:34)
[2018-12-23 10:55] VITALS: BP 128/57
--- NOTE | 2018-12-24 08:58 | RO ---
DATE OF PROCEDURE: 12/23/2018 PREOPERATIVE DIAGNOSIS: Severe urinary urgency, frequency 20 times a day, nocturia 4 to 5 times, urge incontinence, and pelvic pain and pressure for the last 7 years despite medical management. POSTOPERATIVE DIAGNOSIS: Severe urinary urgency, frequency 20 times a day, nocturia 4 to 5 times, urge incontinence, and pelvic pain and pressure for the last 7 years despite medical management. PROCEDURE: Cystoscopy, hydrodistention, random bladder biopsies, and intravesical Botox with 100 units. SURGEON: Dr. Mellisa Barrett OXIDATION ENGINEER: ANESTHESIA: MAC. MEDICATIONS: Gentamicin preoperatively. FINDINGS: The patient had very significant trabeculation. There was no evidence of glomerular lesions, Dilip's ulcerations, or bloody efflux. Her total bladder capacity under anesthesia was approximately 500 mL. 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 INDICATIONS FOR PROCEDURE: The patient is a 68-year-old female with a history of painful bladder syndrome with severe urinary urgency, frequency 20 times a day, nocturia 4 to 5 times, urge incontinence, and pelvic pain and pressure despite medical management with Elmiron, the interstitial cystitis diet, and Detrol LA. After discussing all different options, alternatives, risks and benefits, it was decided to bring her to the operating room for further definitive management. Informed consent was obtained in both verbal and written form. DESCRIPTION OF PROCEDURE: The patient was brought into the operating room. Sequential compression devices were in place. Anesthesia was induced. Next, she was placed in the lithotomy position. Careful attention was paid that her pressure points were well padded and protected. She was prepped and draped in the usual manner. At this point, a 21-Al[place] cystoscope was inserted and the bladder was emptied. Next, the bladder was filled with normal saline and left distended. What was noted is that she had very severe trabeculation throughout the bladder and maybe even some small diverticular formation. The bladder was distended and left from gravity drainage for a total of 10 minutes. Her total bladder capacity under anesthesia was less than 500 mL and she did have detrusor instability with leakage. At this point, 100 units of Botox was placed in 10 different injection sites throughout the bladder using a 4 mm needle. Random bladder biopsies were taken and fulguration was done. The patient's bladder was then emptied and a solution of 10 mL of 1% lidocaine was mixed with a lidocaine slurry and placed in the bladder for post procedural pain control. The patient tolerated the procedure well and was returned to the recovery room in stable condition.
== END 2018-12-23 12:43 | disposition home or self-care (01) ==
LOC: M SDC 08:05
PROVIDERS: ATTEND Specialist
DX: R39.15 Urgency of urination (principal); R35.1 Nocturia; N31.9 Neuromuscular dysfunction of bladder, unspecified; R10.2 Pelvic and perineal pain; I10 Essential (primary) hypertension; I25.2 Old myocardial infarction; Z98.61 Coronary angioplasty status; E11.9 Type 2 diabetes mellitus without complications; E03.9 Hypothyroidism, unspecified; K57.90 Diverticulosis of intestine, part unspecified, without perforation or abscess without bleeding; D64.9 Anemia, unspecified; F32.9 Major depressive disorder, single episode, unspecified; F41.9 Anxiety disorder, unspecified; M79.7 Fibromyalgia; Z91.040 Latex allergy status; Z88.1 Allergy status to other antibiotic agents; Z88.0 Allergy status to penicillin; Z92.3 Personal history of irradiation; G47.30 Sleep apnea, unspecified; Z79.82 Long term (current) use of aspirin; Z79.899 Other long term (current) drug therapy; Z79.4 Long term (current) use of insulin
CPT/HCPCS: 52204; 52260; 52287; 88305; J0585; J1100; J1580; J2250; J2405; J3010

== ENCOUNTER → 2019-01-13 | Outpatient (CLI) | payer MEDICARE ==
[~2019-01-13] MED LIST changes: -GENTAMICIN 100 MG in APPROPRIATE DILUENT 1 EA IV ONE; -LR 1,000 ML IV ONE; +MACR100C43 PO
[2019-01-13 19:55] LABS: BASO % 0.6 % (0.0-1.0); EOS # 0.1 10^3/uL (0.0-0.5); EOS % 2.2 % (0.0-3.0); HEMATOCRIT 45.7 % (36.0-47.0); HEMOGLOBIN 14.9 g/dl (12.0-15.5); LYMPH # 1.9 10^3/uL (1.5-5.0); LYMPH % 30.4 % (24.0-44.0); MEAN CORPUSCULAR HEMOGLOBIN 30.6 pg (27.0-33.0); MEAN CORPUSCULAR HGB CONC 32.6 g/dl (32.0-36.5); MEAN CORPUSCULAR VOLUME 93.8 fl (80.0-96.0); MONO # 0.5 10^3/uL (0.0-0.8); MONO % 7.4 % (0.0-5.0); NEUTROPHILS # 3.8 10^3/uL (1.5-8.5); NEUTROPHILS % 59.1 % (36.0-66.0); PLATELET COUNT, AUTOMATED 231 10^3/uL (150-450); RED BLOOD COUNT 4.87 10^6/uL (4.00-5.40); WHITE BLOOD COUNT 6.4 10^3/uL (4.0-10.0)
[2019-01-13 20:33] LABS: MALB URINE SIEMENS 77.6 MG/L; MAU/CREAT RATIO 40.8 MCG/MG (0.0-30.0)
[2019-01-13 20:35] LABS: ALBUMIN 3.6 GM/DL (3.2-5.2); BILIRUBIN,TOTAL 0.4 MG/DL (0.2-1.0); CALCIUM LEVEL 9.5 MG/DL (8.8-10.2); CREATININE FOR GFR 1.4 MG/DL (0.55-1.30); FREE T4 1.16 NG/DL (0.76-1.46); GLOMERULAR FILTRATION RATE 40.1 (>45); POTASSIUM SERUM 4.8 MEQ/L (3.5-5.1); THYROID STIMULATING HORMONE 0.667 uIU/ML (0.358-3.740); TOTAL PROTEIN 7.2 GM/DL (6.4-8.2)
[2019-01-13 20:43] LABS: HEMOGLOBIN A1c 5.9 %
== END ==
LOC: M WUC 17:25
PROVIDERS: ATTEND Physician Assistant
DX: E03.9 Hypothyroidism, unspecified (principal); E11.9 Type 2 diabetes mellitus without complications

== ENCOUNTER 2019-03-03 17:42 | Emergency (ER) | payer MEDICARE ==
[~2019-03-03] VITALS: Ht 172.7 cm; Wt 136.4 kg
[~2019-03-03 17:42] MED LIST changes: -SIMV40TA2 PO; +SIMV40TA20 PO
[2019-03-03] MEDS ORDERED: LOPE1CAP5 (17:58)
[2019-03-03] MEDS ORDERED: MECL-58 (17:58)
[2019-03-03] MEDS ORDERED: FLUORESCEIN OPHTH 1 MG STRIP OD ONE (19:00)
[2019-03-03] MEDS ORDERED: TETRACAINE 0.5% OPHTH SOLN 4ML OD ONE (19:00)
[2019-03-03 19:48] VITALS: BP 138/82
== END 2019-03-03 19:51 | disposition home or self-care (01) ==
LOC: M ED 17:42
DX: H43.391 Other vitreous opacities, right eye (principal); H53.451 Other localized visual field defect, right eye; E11.9 Type 2 diabetes mellitus without complications; I10 Essential (primary) hypertension; I25.2 Old myocardial infarction; R51 Headache; G47.33 Obstructive sleep apnea (adult) (pediatric); E03.9 Hypothyroidism, unspecified; H81.09 Meniere's disease, unspecified ear; H18.51 Endothelial corneal dystrophy; Z88.0 Allergy status to penicillin; Z88.6 Allergy status to analgesic agent; Z88.2 Allergy status to sulfonamides; Z88.1 Allergy status to other antibiotic agents; Z88.5 Allergy status to narcotic agent; Z88.8 Allergy status to other drugs, medicaments and biological substances; Z79.899 Other long term (current) drug therapy; Z79.4 Long term (current) use of insulin; Z79.82 Long term (current) use of aspirin

== ENCOUNTER 2019-03-11 21:50 | Emergency (ER) | payer MEDICARE ==
[~2019-03-11] VITALS: Ht 172.7 cm; Wt 140.6 kg
[~2019-03-11 21:50] MED LIST changes: +LOPE1CAP5; +MECL-58
[2019-03-11 21:51] VITALS: BP 164/70
[2019-03-11] MEDS ORDERED: TETRACAINE 0.5% OPHTH SOLN 4ML OU ONE (23:15)
== END 2019-03-12 00:39 | disposition home or self-care (01) ==
LOC: M ED 21:50
DX: H53.8 Other visual disturbances (principal); I25.2 Old myocardial infarction; G43.B0 Ophthalmoplegic migraine, not intractable; Z95.5 Presence of coronary angioplasty implant and graft; Z79.82 Long term (current) use of aspirin; Z79.4 Long term (current) use of insulin; Z79.899 Other long term (current) drug therapy; Z88.6 Allergy status to analgesic agent; Z88.0 Allergy status to penicillin; Z88.2 Allergy status to sulfonamides; Z88.1 Allergy status to other antibiotic agents; Z88.5 Allergy status to narcotic agent; Z88.8 Allergy status to other drugs, medicaments and biological substances; Z91.040 Latex allergy status; Z91.89 Other specified personal risk factors, not elsewhere classified

== ENCOUNTER → 2019-04-25 | Outpatient (CLI) | payer MEDICARE ==
[~2019-04-25] MED LIST changes: +SUCR1ORA PO; -SUCR1SUS PO; -TRAZ-163 PO; +TRAZ-257 PO
[2019-04-25 19:58] LABS: HEMATOCRIT 44.1 % (36.0-47.0); HEMOGLOBIN 14.5 g/dl (12.0-15.5); MEAN CORPUSCULAR HEMOGLOBIN 29.9 pg (27.0-33.0); MEAN CORPUSCULAR HGB CONC 32.9 g/dl (32.0-36.5); MEAN CORPUSCULAR VOLUME 90.9 fl (80.0-96.0); RED BLOOD COUNT 4.85 10^6/uL (4.00-5.40); WHITE BLOOD COUNT 7.6 10^3/uL (4.0-10.0)
[2019-04-25 19:59] LABS: BASO # 0.1 10^3/uL (0.0-0.2); BASO % 0.9 % (0.0-1.0); EOS # 0.2 10^3/uL (0.0-0.5); EOS % 2.9 % (0.0-3.0); LYMPH # 2.5 10^3/uL (1.5-5.0); LYMPH % 33.5 % (24.0-44.0); MONO # 0.6 10^3/uL (0.0-0.8); MONO % 8.3 % (0.0-5.0); NEUTROPHILS # 4.1 10^3/uL (1.5-8.5); NEUTROPHILS % 54.1 % (36.0-66.0); PLATELET COUNT, AUTOMATED 254 10^3/uL (150-450)
[2019-04-25 20:02] LABS: APPEARANCE, URINE CLEAR (CLEAR); BACTERIA, URINE AUTO 1+ (NEGATIVE); BILIRUBIN, URINE AUTO NEGATIVE (NEGATIVE); BLOOD, URINE BLOOD NEGATIVE (NEGATIVE); COLOR, URINE YELLOW (YELLOW); GLUCOSE, URINE (UA) AUTO NEGATIVE (NEGATIVE); KETONE, URINE AUTO NEGATIVE (NEGATIVE); LEUKOCYTE ESTERASE, URINE AUTO TRACE (NEGATIVE); MUCUS, URINE SMALL (NEGATIVE); NITRITE, URINE AUTO NEGATIVE (NEGATIVE); PROTEIN, URINE AUTO NEGATIVE (NEGATIVE); RBC, URINE AUTO 1 /HPF (0-3); SPECIFIC GRAVITY URINE AUTO 1.015 (1.002-1.035); SQUAMOUS EPITHELIAL CELL UR AU 0 /HPF (0-6); UROBILINOGEN, URINE AUTO 0.2 mg/dL (0.0-2.0); WBC, URINE AUTO 4 /HPF (0-3)
[2019-04-25 20:11] LABS: ALBUMIN 3.6 GM/DL (3.2-5.2); BILIRUBIN,TOTAL 0.4 MG/DL (0.2-1.0); CALCIUM LEVEL 9.1 MG/DL (8.8-10.2); CREATININE FOR GFR 1.42 MG/DL (0.55-1.30); FREE T4 1.14 NG/DL (0.76-1.46); GLOMERULAR FILTRATION RATE 39.3 (>45); POTASSIUM SERUM 4.3 MEQ/L (3.5-5.1); THYROID STIMULATING HORMONE 2.12 uIU/ML (0.358-3.740)
== END ==
LOC: M WUC 16:05
PROVIDERS: ATTEND Physician Assistant
DX: E03.9 Hypothyroidism, unspecified (principal); E11.22 Type 2 diabetes mellitus with diabetic chronic kidney disease; N30.10 Interstitial cystitis (chronic) without hematuria; Z79.899 Other long term (current) drug therapy

== ENCOUNTER → 2019-04-25 | Outpatient (CLI) | payer MEDICARE ==
[2019-04-25 19:57] LABS: HEMATOCRIT 45.3 % (36.0-47.0); HEMOGLOBIN 14.5 g/dl (12.0-15.5); MEAN CORPUSCULAR HEMOGLOBIN 29.6 pg (27.0-33.0); MEAN CORPUSCULAR VOLUME 92.4 fl (80.0-96.0); PLATELET COUNT, AUTOMATED 256 10^3/uL (150-450)
[2019-04-25 20:04] LABS: ALBUMIN 3.6 GM/DL (3.2-5.2); CALCIUM LEVEL 9.4 MG/DL (8.8-10.2); CREATININE FOR GFR 1.49 MG/DL (0.55-1.30); GLOMERULAR FILTRATION RATE 37.2 (>45); MAGNESIUM LEVEL 2.2 MG/DL (1.8-2.4); PHOSPHORUS LEVEL 3.2 MG/DL (2.5-4.9); POTASSIUM SERUM 4.4 MEQ/L (3.5-5.1); URIC ACID 7.2 MG/DL (2.6-6.0)
[2019-04-25 20:14] LABS: PTH INTACT 157.7 PG/ML (18.5-88.0)
== END ==
LOC: M WUC 16:01
PROVIDERS: ATTEND Internal Medicine Nephrology
DX: N18.3 Chronic kidney disease, stage 3 (moderate) (principal); N25.81 Secondary hyperparathyroidism of renal origin

== ENCOUNTER 2019-08-10 15:44 | Emergency (ER) | payer MEDICARE ==
[~2019-08-10] VITALS: Ht 172.7 cm; Wt 140.8 kg
[2019-08-10] MEDS ORDERED: VICT18IN2 SQ (16:16)
[2019-08-10] MEDS ORDERED: ALLE180T33 PO (16:16)
[2019-08-10] MEDS ORDERED: MULTCAP PO (16:16)
[2019-08-10] MEDS ORDERED: PENT10CA PO (16:16)
[2019-08-10] MEDS ORDERED: LEVOTAB10 PO (16:16)
[2019-08-10] MEDS ORDERED: NS 1,000 ML IV ONE (17:30)
[2019-08-10] MEDS ORDERED: ONDANSETRON 4MG/2ML VIAL IV ONE (17:30)
[2019-08-10 17:57] LABS: BASO # 0.1 10^3/uL (0.0-0.2); BASO % 0.8 % (0.0-1.0); EOS # 0.3 10^3/uL (0.0-0.5); EOS % 3.2 % (0.0-3.0); HEMATOCRIT 46.4 % (36.0-47.0); HEMOGLOBIN 15.4 g/dl (12.0-15.5); LYMPH # 2.4 10^3/uL (1.5-5.0); LYMPH % 28.5 % (24.0-44.0); MEAN CORPUSCULAR HEMOGLOBIN 29.4 pg (27.0-33.0); MEAN CORPUSCULAR HGB CONC 33.2 g/dl (32.0-36.5); MEAN CORPUSCULAR VOLUME 88.5 fl (80.0-96.0); MONO # 0.7 10^3/uL (0.0-0.8); MONO % 8.8 % (0.0-5.0); NEUTROPHILS # 4.9 10^3/uL (1.5-8.5); NEUTROPHILS % 58.6 % (36.0-66.0); PLATELET COUNT, AUTOMATED 259 10^3/uL (150-450); RED BLOOD COUNT 5.24 10^6/uL (4.00-5.40); WHITE BLOOD COUNT 8.3 10^3/uL (4.0-10.0)
[2019-08-10 18:30] LABS: ALBUMIN 3.6 GM/DL (3.2-5.2); ALT/SGPT 53 U/L (12-78); BILIRUBIN,DIRECT 0.1 MG/DL (0.0-0.2); BILIRUBIN,TOTAL 0.3 MG/DL (0.2-1.0); CK-MB VALUE MASS 1.9 NG/ML (<3.6); CPK CREATINE PHOSPHOKINASE 96 U/L (26-192); LIPASE 78 U/L (73-393); MB/CK RELATIVE INDEX 1.98 (< OR =4); NT-PRO BNP 307 PG/ML (<125); TOTAL PROTEIN 7.4 GM/DL (6.4-8.2); TROPONIN I < 0.02 NG/ML (< 0.10)
[2019-08-10] MEDS ORDERED: OMEP-221 PO (19:15)
[2019-08-10] MEDS ORDERED: ROCA0.5C PO (19:15)
[2019-08-10] MEDS ORDERED: CYMB1CAP5 PO (19:15)
[2019-08-10] MEDS ORDERED: LEVO137T2 PO (19:15)
[2019-08-10] MEDS ORDERED: NITROFURANTOIN (MACROBID) 100 MG CAP PO ONE (19:15)
[2019-08-10] MEDS ORDERED: POTA1TAB14 PO (19:16)
[2019-08-10 19:23] VITALS: BP 136/94
--- NOTE | 2019-08-11 04:06 | REP ---
Clinical: Shortness of breath. Technique: PA and lateral. Comparison: 12/17/2018. Findings: Mediastinum and cardiac silhouette are normal. Subtle bronchitis and/or perihilar atelectasis cannot definitively be excluded and should be correlated clinically. No focal consolidation. No effusion. No pneumothorax. Skeletal structures are intact. Impression: 1. Mildly increased markings raise the possibility of chronic reactive airway disease/bronchitis and/or mild perihilar atelectasis. Correlation is required. 2. No focal consolidation or effusion. Electronically Signed by Joe Perez MD 08/11/2019 03:58 A
--- NOTE | 2019-08-11 16:42 | ECGEPIP ---
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 Order Number: [id number] Reading MD: Kristin Ford Measurements Intervals [place] Rate: 67 P: -62 [place]: 180 QRS: -11 QRSD: 112 T: 30 QT: 393 QTc: 415 Interpretive Statements ECTOPIC ATRIAL RHYTHM MINIMAL VOLTAGE CRITERIA FOR LVH, CONSIDER NORMAL VARIANT SEPTAL MYOCARDIAL INFARCTION, OF INDETERMINATE AGE SIMILAR 05/22/16 Electronically Signed on 08-11-2019 16:42:25 EDT by Kristin Ford
== END 2019-08-10 19:29 | disposition home or self-care (01) ==
LOC: M ED 15:44
DX: R30.0 Dysuria (principal); R06.02 Shortness of breath; F41.9 Anxiety disorder, unspecified; Z88.0 Allergy status to penicillin; Z88.2 Allergy status to sulfonamides; Z88.8 Allergy status to other drugs, medicaments and biological substances; Z88.5 Allergy status to narcotic agent
CPT/HCPCS: 71046; 80047; 80076; 81001; 82550; 82553; 83690; 83880; 84443; 84484; 85025; 87086; 93005; 96361; 96374; 99284; J2405

== ENCOUNTER → 2019-11-05 | Outpatient (REF) | payer MEDICARE ==
[~2019-11-05] MED LIST changes: +LEVO137T2 PO; +MULTCAP PO; +OMEP-221 PO; +POTA1TAB14 PO; +ROCA0.5C PO; +VICT18IN2 SQ
[2019-12-04 09:26] LABS: HEMATOCRIT 47.2 % (36.0-47.0); HEMOGLOBIN 15.2 g/dl (12.0-15.5); MEAN CORPUSCULAR HEMOGLOBIN 29.4 pg (27.0-33.0); MEAN CORPUSCULAR HGB CONC 32.2 g/dl (32.0-36.5); MEAN CORPUSCULAR VOLUME 91.3 fl (80.0-96.0); PLATELET COUNT, AUTOMATED 263 10^3/uL (150-450); RED BLOOD COUNT 5.17 10^6/uL (4.00-5.40); WHITE BLOOD COUNT 7.4 10^3/uL (4.0-10.0)
[2019-12-20 17:05] LABS: ALBUMIN 3.7 GM/DL (3.2-5.2); BILIRUBIN,TOTAL 0.4 MG/DL (0.2-1.0); CALCIUM LEVEL 10.1 MG/DL (8.8-10.2); CHOLESTEROL RISK RATIO 2.76 (<5); CREATININE FOR GFR 1.37 MG/DL (0.55-1.30); FREE T4 1.01 NG/DL (0.76-1.46); GLOMERULAR FILTRATION RATE 40.9 (>45); HEMOGLOBIN A1c 5.6 %; POTASSIUM SERUM 3.4 MEQ/L (3.5-5.1); THYROID STIMULATING HORMONE 6.77 uIU/ML (0.358-3.740); TOTAL PROTEIN 7.3 GM/DL (6.4-8.2)
== END ==
LOC: M LABWUC 06:24
PROVIDERS: ATTEND Physician Assistant
DX: E11.9 Type 2 diabetes mellitus without complications (principal); E78.2 Mixed hyperlipidemia; E03.9 Hypothyroidism, unspecified

== ENCOUNTER → 2019-11-06 | Outpatient (REF) | payer MEDICARE ==
[2019-12-04 12:03] LABS: APPEARANCE, URINE CLEAR (CLEAR); BACTERIA, URINE AUTO NEGATIVE (NEGATIVE); BILIRUBIN, URINE AUTO NEGATIVE (NEGATIVE); BLOOD, URINE BLOOD NEGATIVE (NEGATIVE); CALCIUM OXALATE CRYSTALS LARGE; COLOR, URINE YELLOW (YELLOW); GLUCOSE, URINE (UA) AUTO NEGATIVE (NEGATIVE); KETONE, URINE AUTO NEGATIVE (NEGATIVE); LEUKOCYTE ESTERASE, URINE AUTO TRACE (NEGATIVE); MUCUS, URINE SMALL (NEGATIVE); NITRITE, URINE AUTO NEGATIVE (NEGATIVE); PROTEIN, URINE AUTO 2+ mg/dL (NEGATIVE); RBC, URINE AUTO 2 /HPF (0-3); RENAL EPITHELIAL CELLS 1 /HPF; SPECIFIC GRAVITY URINE AUTO 1.023 (1.002-1.035); SQUAMOUS EPITHELIAL CELL UR AU 0 /HPF (0-6); UROBILINOGEN, URINE AUTO 0.2 mg/dL (0.0-2.0); WBC, URINE AUTO 14 /HPF (0-3)
== END ==
LOC: M SMT 12:32
PROVIDERS: ATTEND Nurse Practitioner Family
DX: N39.0 Urinary tract infection, site not specified (principal)

== ENCOUNTER → 2019-11-14 | Outpatient (REF) | payer MEDICARE | LOC: M LAB REF 09:52 | PROVIDERS: ATTEND Nurse Practitioner Family | DX: R30.0 Dysuria (principal) ==

== ENCOUNTER → 2020-02-18 | Outpatient (REF) | payer MEDICARE ==
[2020-02-18 18:12] LABS: APPEARANCE, URINE CLOUDY (CLEAR); BACTERIA, URINE AUTO NEGATIVE (NEGATIVE); BILIRUBIN, URINE AUTO NEGATIVE (NEGATIVE); BLOOD, URINE BLOOD NEGATIVE (NEGATIVE); COLOR, URINE YELLOW (YELLOW); GLUCOSE, URINE (UA) AUTO NEGATIVE (NEGATIVE); KETONE, URINE AUTO NEGATIVE (NEGATIVE); LEUKOCYTE ESTERASE, URINE AUTO 3+ (NEGATIVE); MUCUS, URINE SMALL (NEGATIVE); NITRITE, URINE AUTO NEGATIVE (NEGATIVE); PROTEIN, URINE AUTO 1+ mg/dL (NEGATIVE); RBC, URINE AUTO 3 /HPF (0-3); SPECIFIC GRAVITY URINE AUTO 1.021 (1.002-1.035); SQUAMOUS EPITHELIAL CELL UR AU 1 /HPF (0-6); TRANSITIONAL EPITHELIAL AUTO 1 /HPF; UROBILINOGEN, URINE AUTO 0.2 mg/dL (0.0-2.0); WBC, URINE AUTO 37 /HPF (0-3)
== END ==
LOC: M SMT 17:00
PROVIDERS: ATTEND Urology
DX: N39.0 Urinary tract infection, site not specified (principal)

== ENCOUNTER → 2021-07-12 | Outpatient (REF) | payer MEDICARE ==
[~2021-07-12] MED LIST changes: -OMEP-221 PO; +OMEP40CA5 PO
[2021-07-13 13:52] LABS: APPEARANCE, URINE HAZY (CLEAR); BACTERIA, URINE AUTO 1+ (NEGATIVE); BILIRUBIN, URINE AUTO NEGATIVE (NEGATIVE); BLOOD, URINE BLOOD NEGATIVE (NEGATIVE); CALCIUM OXALATE CRYSTALS SMALL; COLOR, URINE AMBER (YELLOW); GLUCOSE, URINE (UA) AUTO NEGATIVE (NEGATIVE); KETONE, URINE AUTO NEGATIVE (NEGATIVE); LEUKOCYTE ESTERASE, URINE AUTO NEGATIVE (NEGATIVE); MUCUS, URINE SMALL (NEGATIVE); NITRITE, URINE AUTO NEGATIVE (NEGATIVE); PROTEIN, URINE AUTO 2+ mg/dL (NEGATIVE); RBC, URINE AUTO 1 /HPF (0-3); SPECIFIC GRAVITY URINE AUTO 1.033 (1.002-1.035); SQUAMOUS EPITHELIAL CELL UR AU 0 /HPF (0-6); UROBILINOGEN, URINE AUTO 0.2 mg/dL (0.0-2.0); WBC, URINE AUTO 2 /HPF (0-3)
== END ==
LOC: M SMT 13:01
PROVIDERS: ATTEND Nurse Practitioner Women's Health
DX: R35.0 Frequency of micturition (principal)

== ENCOUNTER 2021-07-22 14:40 | Observation (INO) | payer MEDICARE ==
[~2021-07-22] VITALS: Ht 172.7 cm; Wt 127.2 kg
[2021-07-22 16:28] LABS: BASO # 0.1 10^3/uL (0.0-0.2); BASO % 0.6 % (0.0-1.0); EOS # 0.1 10^3/uL (0.0-0.5); EOS % 1.5 % (0.0-3.0); HEMATOCRIT 48.6 % (36.0-47.0); LYMPH # 1.8 10^3/uL (1.5-5.0); LYMPH % 23.1 % (24.0-44.0); MEAN CORPUSCULAR HEMOGLOBIN 29.7 pg (27.0-33.0); MEAN CORPUSCULAR HGB CONC 32.9 g/dl (32.0-36.5); MEAN CORPUSCULAR VOLUME 90.2 fl (80.0-96.0); MONO # 0.6 10^3/uL (0.0-0.8); MONO % 7.5 % (2.0-8.0); NEUTROPHILS # 5.2 10^3/uL (1.5-8.5); NEUTROPHILS % 66.8 % (36.0-66.0); PLATELET COUNT, AUTOMATED 280 10^3/uL (150-450); RED BLOOD COUNT 5.39 10^6/uL (4.00-5.40); WHITE BLOOD COUNT 7.8 10^3/uL (4.0-10.0)
[2021-07-22 16:45] LABS: INR 0.88; PROTHROMBIN TIME 12.3 SECONDS (12.7-14.5)
[2021-07-22 16:50] LABS: CK-MB VALUE MASS 1.4 NG/ML (<3.6); MB/CK RELATIVE INDEX 2.15 (< OR =4)
[2021-07-22 17:02] LABS: CALCIUM LEVEL 11.1 MG/DL (8.8-10.2); CREATININE FOR GFR 1.11 MG/DL (0.55-1.30); FREE T4 0.94 NG/DL (0.76-1.46); GLOMERULAR FILTRATION RATE 51.9 (>45); MAGNESIUM LEVEL 2.1 MG/DL (1.8-2.4); POTASSIUM SERUM 4.2 MEQ/L (3.5-5.1); THYROID STIMULATING HORMONE 1.74 uIU/ML (0.358-3.740)
[2021-07-22] MEDS ORDERED: NS 1,000 ML IV ONE (17:40)
[2021-07-22 17:52] LABS: CK-MB VALUE MASS 1.6 NG/ML (<3.6); MB/CK RELATIVE INDEX 3.14 (< OR =4)
[2021-07-22 17:53] LABS: ALBUMIN 3.7 GM/DL (3.2-5.2); BILIRUBIN,DIRECT 0.1 MG/DL (0.0-0.2); BILIRUBIN,TOTAL 0.3 MG/DL (0.2-1.0); TOTAL PROTEIN 7.3 GM/DL (6.4-8.2)
[2021-07-22] MEDS ORDERED: ROCA0.5C PO (18:44)
[2021-07-22] MEDS ORDERED: LEVE1INJ5 SC (18:44)
[2021-07-22] MEDS ORDERED: TRAM50TA2 PO (18:44)
[2021-07-22] MEDS ORDERED: LEVE1INJ5 INJ (18:44)
[2021-07-22] MEDS ORDERED: ATEN50TA2 PO (19:15)
[2021-07-22] MEDS ORDERED: LEVO150T7 PO (19:15)
[2021-07-22] MEDS ORDERED: OMEP40CA5 PO (19:15)
[2021-07-22] MEDS ORDERED: BUME1TAB3 PO (19:15)
[2021-07-22] MEDS ORDERED: OYST500C PO (19:15)
[2021-07-22] MEDS ORDERED: SYST1SOL2 OU (19:16)
[2021-07-22] MEDS ORDERED: BACL1TAB9 PO (19:16)
[2021-07-22] MEDS ORDERED: CVS-161 PO (19:16)
[2021-07-22] MEDS ORDERED: MULT-90 PO (19:16)
[2021-07-22] MEDS ORDERED: HOME MED LIST COMPLETE! XX SCH (19:20)
[2021-07-22 19:27] LABS: RSV AMPLIFICATION NEGATIVE (NEGATIVE)
[2021-07-22] MEDS ORDERED: NITROGLYCERIN 0.4 MG SUBL TABLET SL PRN (20:55)
[2021-07-22] MEDS ORDERED: ACETAMINOPHEN TAB 650MG DOSE (2X325MG) PO PRN (20:55)
[2021-07-22] MEDS ORDERED: NS 1,000 ML IV SCH (20:55)
[2021-07-22] MEDS ORDERED: GLUCAGON INJ 1MG VIAL SC PRN (22:10)
[2021-07-22] MEDS ORDERED: DEXTROSE 50% 50 ML SYRINGE IV PRN (22:10)
[2021-07-22] MEDS ORDERED: GLUCOSE 4GM CHEW TABLET PO PRN (22:10)
[2021-07-22] MEDS: DULoxetine 30MG CAPSULE (CYMBALTA) PO SCH (22:57)
[2021-07-22] MEDS: traZODone 100 MG TAB PO SCH (22:57)
[2021-07-22] MEDS: LEVEMIR (INSULIN DETEMIR) 1 UNITS/0.01ML SC SCH (22:58)
[2021-07-22] MEDS ORDERED: PANTOPRAZOLE 40MG TAB (PROTONIX) PO ONE (23:00)
[2021-07-23] MEDS: traMADol 50 MG TAB PO PRN ×3 (01:51→20:42)
[2021-07-23] MEDS: LEVOTHYROXINE 150MCG TABLET (0.15MG) PO SCH (05:20)
[2021-07-23] MEDS: HEPARIN SOD (PORCINE) 5000UNITS/ML 1ML VIAL/SYRINGE SC SCH ×3 (05:20→20:36)
[2021-07-23 06:00] VITALS: BP 141/75
[2021-07-23 07:05] LABS: CALCIUM LEVEL 9.8 MG/DL (8.8-10.2); CREATININE FOR GFR 1.12 MG/DL (0.55-1.30); GLOMERULAR FILTRATION RATE 51.3 (>45); POTASSIUM SERUM 3.3 MEQ/L (3.5-5.1)
[2021-07-23] MEDS: HumaLOG INSULIN (NovoLOG) PER UNIT SC SCH ×3 (07:30→18:25)
[2021-07-23] MEDS ORDERED: POTASSIUM CHLORIDE 10MEQ SR TABLET PO ONE (07:35)
[2021-07-23] MEDS: SIMVASTATIN 40 MG TAB PO SCH (08:44)
[2021-07-23] MEDS: ASPIRIN 81MG ENTERIC TABLET PO SCH (08:44)
[2021-07-23] MEDS: LEVEMIR (INSULIN DETEMIR) 1 UNITS/0.01ML SC SCH ×2 (08:45→20:35)
[2021-07-23 08:49] LABS: HEMOGLOBIN A1c 5.5 %
[2021-07-23] MEDS ORDERED: atenoloL 50 MG TAB PO SCH (09:00)
[2021-07-23 09:29] VITALS: BP_SYST 127; BP_SYST 129; BP_SYST 130; BP_DIAS 66; BP_DIAS 67
[2021-07-23 14:00] VITALS: BP 137/69
[2021-07-23] MEDS ORDERED: LOPERAMIDE 2 MG CAPLET PO PRN (18:55)
[2021-07-23 20:18] VITALS: BP 135/67
[2021-07-23] MEDS: traZODone 100 MG TAB PO SCH (20:34)
[2021-07-23] MEDS: DULoxetine 30MG CAPSULE (CYMBALTA) PO SCH (20:35)
[2021-07-23] MEDS: PENTOSAN POLYSULFATE SODIUM 100 MG CAP (ELMIRON) PO SCH (20:43)
[2021-07-23] MEDS ORDERED: HumaLOG INSULIN (NovoLOG) PER UNIT SC SCH (21:00)
[2021-07-24] MEDS: LEVOTHYROXINE 150MCG TABLET (0.15MG) PO SCH (05:52)
[2021-07-24] MEDS: HEPARIN SOD (PORCINE) 5000UNITS/ML 1ML VIAL/SYRINGE SC SCH (05:52)
[2021-07-24 06:00] VITALS: BP 136/88
[2021-07-24 06:23] LABS: MEAN CORPUSCULAR HEMOGLOBIN 30.2 pg (27.0-33.0); MEAN CORPUSCULAR HGB CONC 32.4 g/dl (32.0-36.5); MEAN CORPUSCULAR VOLUME 93.3 fl (80.0-96.0); PLATELET COUNT, AUTOMATED 199 10^3/uL (150-450); WHITE BLOOD COUNT 6.1 10^3/uL (4.0-10.0)
[2021-07-24 06:27] LABS: HEMOGLOBIN 13.6 g/dl (12.0-15.5)
[2021-07-24 06:46] LABS: CALCIUM LEVEL 9.7 MG/DL (8.8-10.2); CREATININE FOR GFR 1.17 MG/DL (0.55-1.30); GLOMERULAR FILTRATION RATE 48.8 (>45); POTASSIUM SERUM 4.2 MEQ/L (3.5-5.1)
[2021-07-24] MEDS: HumaLOG INSULIN (NovoLOG) PER UNIT SC SCH ×2 (07:30→12:00)
[2021-07-24] MEDS ORDERED: ATEN25TA PO (08:36)
[2021-07-24] MEDS ORDERED: VICT18IN SC (08:36)
[2021-07-24] MEDS ORDERED: LEVE1INJ5 SC (08:36)
[2021-07-24 09:00] VITALS: BP 145/88
[2021-07-24] MEDS ORDERED: atenoloL 25 MG TAB PO SCH (09:00)
[2021-07-24] MEDS ORDERED: PREVNAR 13 VACCINE SYRINGE IM ONE (09:00)
[2021-07-24] MEDS ORDERED: FLUBLOK(EGG FREE)(QUAD)INFLUENZA VACC 0.5ML SYRINGE 18YRS & OLDER IM ONE (09:00)
[2021-07-24] MEDS: LEVEMIR (INSULIN DETEMIR) 1 UNITS/0.01ML SC SCH (09:00)
[2021-07-24] MEDS: PENTOSAN POLYSULFATE SODIUM 100 MG CAP (ELMIRON) PO SCH (09:00)
[2021-07-24] MEDS ORDERED: FEXOFENADINE 60MG TAB PO SCH (09:00)
[2021-07-24] MEDS: ASPIRIN 81MG ENTERIC TABLET PO SCH (09:04)
[2021-07-24] MEDS: SIMVASTATIN 40 MG TAB PO SCH (09:04)
== END 2021-07-24 14:19 | disposition home or self-care (01) ==
LOC: M ED 14:40 → M ED INP 20:54 → ENRESERV 22:18 → M MSPAV 22:33
PROVIDERS: ADMIT Internal Medicine; ATTEND Internal Medicine
DX: R42 Dizziness and giddiness (principal); E11.9 Type 2 diabetes mellitus without complications; R00.2 Palpitations; R32 Unspecified urinary incontinence; R10.2 Pelvic and perineal pain; I25.10 Atherosclerotic heart disease of native coronary artery without angina pectoris; F32.A Depression, unspecified; E83.52 Hypercalcemia; G47.33 Obstructive sleep apnea (adult) (pediatric); E03.9 Hypothyroidism, unspecified; R00.1 Bradycardia, unspecified; I12.9 Hypertensive chronic kidney disease with stage 1 through stage 4 chronic kidney disease, or unspecified chronic kidney disease; N18.30 Chronic kidney disease, stage 3 unspecified; I50.9 Heart failure, unspecified; H81.09 Meniere's disease, unspecified ear; M54.6 Pain in thoracic spine; R55 Syncope and collapse; Z87.440 Personal history of urinary (tract) infections; Z79.899 Other long term (current) drug therapy; Z79.82 Long term (current) use of aspirin; Z79.84 Long term (current) use of oral hypoglycemic drugs; Z88.0 Allergy status to penicillin; Z88.1 Allergy status to other antibiotic agents; Z88.2 Allergy status to sulfonamides; Z88.5 Allergy status to narcotic agent; Z88.8 Allergy status to other drugs, medicaments and biological substances; Z91.040 Latex allergy status
CPT/HCPCS: 36415; 71045; 80048; 80076; 81001; 82550; 82553; 83036; 83735; 83970; 84439; 84443; 84484; 85025; 85027; 85610; 87086; 87631; 90670; 90682; 93005; 93041; 93306; 94660; 94760; 96360; 96361; 96372; 97161; 97530; 99285; G0008; G0009; G0378; J1644; J1815

== ENCOUNTER → 2021-08-22 | Outpatient (REF) | payer MEDICARE ==
[~2021-08-22] MED LIST changes: +ATEN25TA PO; +BACL1TAB9 PO; +BUME1TAB3 PO; +CVS-161 PO; +LEVE1INJ5 INJ; +LEVE1INJ5 SC; +LEVO150T7 PO; +MULT-90 PO; +OYST500C PO; +SYST1SOL2 OU
[2021-08-22 18:33] LABS: BACTERIA, URINE AUTO NEGATIVE (NEGATIVE); CALCIUM OXALATE CRYSTALS LARGE; MUCUS, URINE SMALL (NEGATIVE); RBC, URINE AUTO 2 /HPF (0-3); RENAL EPITHELIAL CELLS 1 /HPF; SQUAMOUS EPITHELIAL CELL UR AU 2 /HPF (0-6); WBC, URINE AUTO 13 /HPF (0-3)
== END ==
LOC: M SMT 16:49
PROVIDERS: ATTEND Specialist
DX: N39.41 Urge incontinence (principal)

== ENCOUNTER → 2021-12-02 | Outpatient (CLI) | payer MEDICARE ==
[2021-12-02 18:24] LABS: HEMATOCRIT 46.5 % (36.0-47.0); HEMOGLOBIN 14.9 g/dl (12.0-15.5); MEAN CORPUSCULAR HEMOGLOBIN 29.7 pg (27.0-33.0); MEAN CORPUSCULAR VOLUME 92.8 fl (80.0-96.0); PLATELET COUNT, AUTOMATED 248 10^3/uL (150-450); RED BLOOD COUNT 5.01 10^6/uL (4.00-5.40); WHITE BLOOD COUNT 7.6 10^3/uL (4.0-10.0)
[2021-12-02 18:36] LABS: HEMOGLOBIN A1c 5.7 %
[2021-12-02 19:15] LABS: ALBUMIN 3.6 GM/DL (3.2-5.2); BILIRUBIN,TOTAL 0.3 MG/DL (0.2-1.0); CALCIUM LEVEL 10.6 MG/DL (8.8-10.2); CHOLESTEROL RISK RATIO 2.408 (<5); CREATININE FOR GFR 1.32 MG/DL (0.55-1.30); FREE T4 1.13 NG/DL (0.76-1.46); GLOMERULAR FILTRATION RATE 42.5 (>45); POTASSIUM SERUM 3.8 MEQ/L (3.5-5.1); THYROID STIMULATING HORMONE 2.11 uIU/ML (0.358-3.740)
== END ==
LOC: M WUC 13:27
PROVIDERS: ATTEND Physician Assistant
DX: I25.10 Atherosclerotic heart disease of native coronary artery without angina pectoris (principal); I10 Essential (primary) hypertension; E78.5 Hyperlipidemia, unspecified; E03.9 Hypothyroidism, unspecified; Z79.899 Other long term (current) drug therapy

== ENCOUNTER → 2022-01-12 | Outpatient (REF) | payer MEDICARE ==
[2022-01-12 19:20] LABS: APPEARANCE, URINE MANUAL CLEAR (CLEAR); BILIRUBIN, URINE MANUAL NEGATIVE (NEGATIVE); BLOOD URINE MANUAL NEGATIVE (NEGATIVE); COLOR, URINE MANUAL YELLOW (YELLOW); GLUCOSE, URINE (UA) MANUAL NEGATIVE (NEGATIVE); KETONE, URINE MANUAL NEGATIVE (NEGATIVE); LEUKOCYTE ESTERASE, URINE MAN NEGATIVE (NEGATIVE); NITRITE, URINE MANUAL NEGATIVE (NEGATIVE); PROTEIN, URINE MANUAL 2+ mg/dL (NEGATIVE); UROBILINOGEN, URINE MANUAL NORMAL (NORMAL)
[2022-01-12 20:28] LABS: BACTERIA, URINE NONE SEEN; CALCIUM OXALATE CRYSTALS,URINE MOD AMOUNT /hpf; MUCUS, URINE MOD AMOUNT (NEGATIVE); SQUAMOUS EPITHELIAL CELL URINE SMALL AMOUNT /hpf (SMALL AMT)
== END ==
LOC: M SMT 17:08
PROVIDERS: ATTEND Nurse Practitioner Women's Health
DX: R30.0 Dysuria (principal)

== ENCOUNTER → 2022-09-07 | Outpatient (CLI) | payer MEDICARE ==
[~2022-09-07] MED LIST changes: +INSU100I6 INJ; +INSU100I6 SC; -LEVE1INJ5 INJ; -LEVE1INJ5 SC; +POTA-298 PO; -POTA1TAB14 PO
[2022-09-07 18:03] LABS: HEMATOCRIT 45.1 % (36.0-47.0); HEMOGLOBIN 14.6 g/dl (12.0-15.5); MEAN CORPUSCULAR HEMOGLOBIN 29.8 pg (27.0-33.0); MEAN CORPUSCULAR HGB CONC 32.4 g/dl (32.0-36.5); PLATELET COUNT, AUTOMATED 249 10^3/uL (150-450); WHITE BLOOD COUNT 6.9 10^3/uL (4.0-10.0)
[2022-09-07 18:09] LABS: HEMOGLOBIN A1c 5.5 % (4.0-6.0)
[2022-09-07 18:15] LABS: APPEARANCE, URINE HAZY (CLEAR); BACTERIA, URINE AUTO NEGATIVE (NEGATIVE); BILIRUBIN, URINE AUTO NEGATIVE (NEGATIVE); BLOOD, URINE BLOOD NEGATIVE (NEGATIVE); COLOR, URINE YELLOW (YELLOW); GLUCOSE, URINE (UA) AUTO NEGATIVE (NEGATIVE); KETONE, URINE AUTO NEGATIVE (NEGATIVE); LEUKOCYTE ESTERASE, URINE AUTO TRACE (NEGATIVE); MUCUS, URINE SMALL (NEGATIVE); NITRITE, URINE AUTO NEGATIVE (NEGATIVE); PROTEIN, URINE AUTO 1+ mg/dL (NEGATIVE); RBC, URINE AUTO 0 /HPF (0-3); SPECIFIC GRAVITY URINE AUTO 1.027 (1.002-1.035); SQUAMOUS EPITHELIAL CELL UR AU 1 /HPF (0-6); UROBILINOGEN, URINE AUTO 0.2 mg/dL (0.0-2.0); WBC, URINE AUTO 11 /HPF (0-3)
[2022-09-07 18:23] LABS: MAU/CREAT RATIO 81.9 MCG/MG (0.0-30.0)
[2022-09-07 18:24] LABS: ALBUMIN 3.5 G/DL (3.2-5.2); BILIRUBIN,TOTAL 0.4 MG/DL (0.3-1.2); CALCIUM LEVEL 10.6 MG/DL (8.3-10.6); CHOLESTEROL RISK RATIO 2.8 (<5); CREATININE FOR GFR 1.24 MG/DL (0.55-1.30); GLOMERULAR FILTRATION RATE 45.5 (>39); LDL CHOLESTEROL 57.6 MG/DL (<100); POTASSIUM SERUM 4.2 MMOL/L (3.5-5.1); TOTAL PROTEIN 6.7 G/DL (5.7-8.2)
[2022-09-07 18:27] LABS: FREE T4 1.33 NG/DL (0.89-1.76); THYROID STIMULATING HORMONE 0.542 uIU/ML (0.55-4.78)
== END ==
LOC: M LAB 17:08
PROVIDERS: ATTEND Family Medicine
DX: R30.0 Dysuria (principal); E03.9 Hypothyroidism, unspecified; E78.5 Hyperlipidemia, unspecified; I25.10 Atherosclerotic heart disease of native coronary artery without angina pectoris; R29.6 Repeated falls; E11.59 Type 2 diabetes mellitus with other circulatory complications

== ENCOUNTER → 2022-12-13 | Outpatient (REF) | payer MEDICARE ==
[2022-12-13 13:34] LABS: HEMATOCRIT 46.3 % (36.0-47.0); HEMOGLOBIN 14.9 g/dl (12.0-15.5); MEAN CORPUSCULAR HEMOGLOBIN 29.5 pg (27.0-33.0); MEAN CORPUSCULAR HGB CONC 32.2 g/dl (32.0-36.5); MEAN CORPUSCULAR VOLUME 91.7 fl (80.0-96.0); PLATELET COUNT, AUTOMATED 256 10^3/uL (150-450); RED BLOOD COUNT 5.05 10^6/uL (4.00-5.40); WHITE BLOOD COUNT 8.2 10^3/uL (4.0-10.0)
[2022-12-13 14:04] LABS: CALCIUM LEVEL 10.6 MG/DL (8.3-10.6); CREATININE FOR GFR 1.23 MG/DL (0.55-1.30); POTASSIUM SERUM 4.2 MMOL/L (3.5-5.1)
== END ==
LOC: M SFHCADAM 10:44
PROVIDERS: ATTEND Family Medicine
DX: L97.529 Non-pressure chronic ulcer of other part of left foot with unspecified severity (principal); E11.621 Type 2 diabetes mellitus with foot ulcer

== ENCOUNTER 2023-01-31 12:26 | Day surgery (SDC) | payer MEDICARE ==
[~2023-01-31] VITALS: Ht 172.7 cm; Wt 130.8 kg
[~2023-01-31 12:26] MED LIST changes: +INSU100I48 SQ; +LIDOCAINE 3.5 % 1ML OPHTH TOPICAL GEL OU ONE; +OXYB10TA23 PO
[2023-01-31] MEDS ORDERED: MIDAZOLAM INJ 2MG/2ML VIAL As Ordered ONE (14:56)
[2023-01-31] MEDS ORDERED: fentaNYL 100 MCG/2 ML INJECTION As Ordered ONE (14:56)
[2023-01-31] MEDS ORDERED: SODIUM BICARBONATE 4.2% INJ 10ML SYRINGE As Ordered ONE (15:33)
[2023-01-31] MEDS ORDERED: LIDOCAINE 2% W/EPINEPHRINE 20ML VIAL **PRES FREE As Ordered ONE (15:33)
[2023-01-31] MEDS ORDERED: POVIDONE-IODINE 5% OPHTH PREP SOL 30ML As Ordered ONE (15:46)
[2023-01-31] MEDS ORDERED: CIPROFLOXACIN 0.3% OPHTH OINTMENT As Ordered ONE (16:14)
[2023-01-31 17:00] VITALS: BP 168/98; TEMP 97; O2SAT 95
== END 2023-01-31 17:05 | disposition home or self-care (01) ==
LOC: M SDC 12:26
PROVIDERS: ATTEND Ophthalmology
DX: H02.834 Dermatochalasis of left upper eyelid (principal); H02.831 Dermatochalasis of right upper eyelid; E11.9 Type 2 diabetes mellitus without complications; I10 Essential (primary) hypertension; E03.9 Hypothyroidism, unspecified; E78.00 Pure hypercholesterolemia, unspecified; I25.2 Old myocardial infarction; Z95.5 Presence of coronary angioplasty implant and graft; G47.30 Sleep apnea, unspecified; K76.0 Fatty (change of) liver, not elsewhere classified; Z88.0 Allergy status to penicillin; Z88.1 Allergy status to other antibiotic agents; Z88.5 Allergy status to narcotic agent; Z88.8 Allergy status to other drugs, medicaments and biological substances
CPT/HCPCS: 15823; 88302; J2250; J3010

== ENCOUNTER → 2023-05-28 | Outpatient (REF) | payer MEDICARE ==
[~2023-05-28] MED LIST changes: -BIOT50004 PO; +BIOT5CAP8 PO; -LIDOCAINE 3.5 % 1ML OPHTH TOPICAL GEL OU ONE
[2023-05-29 13:41] LABS: APPEARANCE, URINE CLEAR (CLEAR); BILIRUBIN, URINE AUTO NEGATIVE (NEGATIVE); BLOOD, URINE BLOOD NEGATIVE (NEGATIVE); COLOR, URINE YELLOW (YELLOW); GLUCOSE, URINE (UA) AUTO NEGATIVE (NEGATIVE); KETONE, URINE AUTO NEGATIVE (NEGATIVE); LEUKOCYTE ESTERASE, URINE AUTO NEGATIVE (NEGATIVE); NITRITE, URINE AUTO NEGATIVE (NEGATIVE); PROTEIN, URINE AUTO 1+ mg/dL (NEGATIVE); SPECIFIC GRAVITY URINE AUTO 1.017 (1.002-1.035); UROBILINOGEN, URINE AUTO 0.2 mg/dL (0.0-2.0)
[2023-05-29 13:48] LABS: BACTERIA, URINE AUTO NEGATIVE (NEGATIVE); RBC, URINE AUTO 4 /HPF (0-3); SQUAMOUS EPITHELIAL CELL UR AU 0 /HPF (0-6); TRIPLE PHOSPHATE CRYSTALS SMALL; WBC, URINE AUTO 2 /HPF (0-3)
== END ==
LOC: M SMT 12:54
PROVIDERS: ATTEND Specialist
DX: N39.0 Urinary tract infection, site not specified (principal)

== ENCOUNTER → 2023-06-29 | Outpatient (CLI) | payer MEDICARE ==
[2023-06-30 08:24] LABS: HEMOGLOBIN A1c 5.5 % (4.0-6.0)
[2023-06-30 08:25] LABS: HEMATOCRIT 46.4 % (36.0-47.0); HEMOGLOBIN 14.2 g/dl (12.0-15.5); MEAN CORPUSCULAR HEMOGLOBIN 29.4 pg (27.0-33.0); MEAN CORPUSCULAR HGB CONC 30.6 g/dl (32.0-36.5); MEAN CORPUSCULAR VOLUME 96.1 fl (80.0-96.0); PLATELET COUNT, AUTOMATED 266 10^3/uL (150-450); RED BLOOD COUNT 4.83 10^6/uL (4.00-5.40); WHITE BLOOD COUNT 9.2 10^3/uL (4.0-10.0)
[2023-06-30 08:30] LABS: CREATININE, URINE 242.1 MG/DL
[2023-06-30 08:31] LABS: ALBUMIN 3.7 G/DL (3.2-5.2); BILIRUBIN,TOTAL 0.5 MG/DL (0.3-1.2); CALCIUM LEVEL 10.5 MG/DL (8.3-10.6); CHOLESTEROL RISK RATIO 2.86 (<5); CREATININE FOR GFR 1.11 MG/DL (0.55-1.30); GLOMERULAR FILTRATION RATE 51.6 (>39); HDL CHOLESTEROL 47.5 MG/DL (>40); LDL CHOLESTEROL 64.1 MG/DL (<100); MAU/CREAT RATIO 95.8 MCG/MG (0.0-30.0); NON-HDL-C 88.5 MG/DL; POTASSIUM SERUM 3.8 MMOL/L (3.5-5.1); TOTAL PROTEIN 7.1 G/DL (5.7-8.2)
== END ==
LOC: M WUC 15:12
PROVIDERS: ATTEND Family Medicine
DX: I50.30 Unspecified diastolic (congestive) heart failure (principal)

== ENCOUNTER → 2023-07-26 | Outpatient (REF) | payer MEDICARE ==
[2023-07-26 13:50] LABS: APPEARANCE, URINE HAZY (CLEAR); BACTERIA, URINE AUTO NEGATIVE (NEGATIVE); BILIRUBIN, URINE AUTO NEGATIVE (NEGATIVE); BLOOD, URINE BLOOD NEGATIVE (NEGATIVE); COLOR, URINE YELLOW (YELLOW); GLUCOSE, URINE (UA) AUTO NEGATIVE (NEGATIVE); KETONE, URINE AUTO NEGATIVE (NEGATIVE); LEUKOCYTE ESTERASE, URINE AUTO TRACE (NEGATIVE); MUCUS, URINE SMALL (NEGATIVE); NITRITE, URINE AUTO NEGATIVE (NEGATIVE); PROTEIN, URINE AUTO 2+ mg/dL (NEGATIVE); RBC, URINE AUTO 1 /HPF (0-3); SPECIFIC GRAVITY URINE AUTO 1.025 (1.002-1.035); SQUAMOUS EPITHELIAL CELL UR AU 6 /HPF (0-6); UROBILINOGEN, URINE AUTO 0.2 mg/dL (0.0-2.0); WBC, URINE AUTO 8 /HPF (0-3)
== END ==
LOC: M LABWUC 12:35
PROVIDERS: ATTEND Specialist
DX: N39.0 Urinary tract infection, site not specified (principal)

== ENCOUNTER 2023-08-11 20:22 | Emergency (ER) | payer MEDICARE ==
[~2023-08-11] VITALS: Ht 172.7 cm; Wt 128.2 kg
[2023-08-12 00:09] VITALS: BP 134/74; TEMP 97; O2SAT 98
== END 2023-08-12 00:10 | disposition home or self-care (01) ==
LOC: M ED 20:22
DX: H00.024 Hordeolum internum left upper eyelid (principal); Z88.8 Allergy status to other drugs, medicaments and biological substances; Z91.040 Latex allergy status; Z88.0 Allergy status to penicillin; Z88.2 Allergy status to sulfonamides; Z79.1 Long term (current) use of non-steroidal anti-inflammatories (NSAID); Z79.2 Long term (current) use of antibiotics; Z79.4 Long term (current) use of insulin; Z79.810 Long term (current) use of selective estrogen receptor modulators (SERMs); Z79.899 Other long term (current) drug therapy

== ENCOUNTER → 2023-08-20 | Outpatient (REF) | payer MEDICARE ==
[~2023-08-20] MED LIST changes: +CEPH500C PO; +MEDR4PAK PO
[2023-08-20 17:27] LABS: APPEARANCE, URINE CLOUDY (CLEAR); BACTERIA, URINE AUTO NEGATIVE (NEGATIVE); BILIRUBIN, URINE AUTO NEGATIVE (NEGATIVE); BLOOD, URINE BLOOD NEGATIVE (NEGATIVE); CALCIUM OXALATE CRYSTALS LARGE; COLOR, URINE YELLOW (YELLOW); GLUCOSE, URINE (UA) AUTO NEGATIVE (NEGATIVE); KETONE, URINE AUTO NEGATIVE (NEGATIVE); LEUKOCYTE ESTERASE, URINE AUTO 3+ (NEGATIVE); MUCUS, URINE SMALL (NEGATIVE); NITRITE, URINE AUTO NEGATIVE (NEGATIVE); PROTEIN, URINE AUTO 2+ mg/dL (NEGATIVE); RBC, URINE AUTO 15 /HPF (0-3); SPECIFIC GRAVITY URINE AUTO 1.028 (1.002-1.035); SQUAMOUS EPITHELIAL CELL UR AU 2 /HPF (0-6); WBC, URINE AUTO TNTC /HPF (0-3)
== END ==
LOC: M SMT 16:53
PROVIDERS: ATTEND Nurse Practitioner Family
DX: R30.0 Dysuria (principal)

== ENCOUNTER 2023-08-22 23:21 | Emergency (ER) | payer MEDICARE ==
[~2023-08-22] VITALS: Ht 170.2 cm; Wt 127.7 kg
[~2023-08-22 23:21] MED LIST changes: -CEPH500C PO; -MEDR4PAK PO
[2023-08-22] MEDS ORDERED: methylPREDNISolone 125MG 2ML VIAL As Ordered ONE (23:33)
[2023-08-22 23:34] VITALS: TEMP 96.8
[2023-08-22] MEDS: diphenhydrAMINE 50MG/ML VIAL IV ONE (23:35)
[2023-08-22] MEDS: methylPREDNISolone 125MG 2ML VIAL IV ONE (23:42)
[2023-08-22] MEDS: NS 1,000 ML IV ONE (23:43)
[2023-08-22] MEDS: ALBUTEROL SULFATE 2.5MG/0.5ML INH NEB SOLN NEB SCH (23:44)
[2023-08-22] MEDS: FAMOTIDINE IV BAG 20 MG in IV 1 EA IV ONE (23:58)
[2023-08-23 00:52] LABS: BASO % 0.3 % (0.0-1.0); EOS # 0.1 10^3/uL (0.0-0.5); EOS % 0.5 % (0.0-3.0); HEMATOCRIT 46.3 % (36.0-47.0); HEMOGLOBIN 15.3 g/dl (12.0-15.5); LYMPH # 3.1 10^3/uL (1.5-5.0); LYMPH % 20.8 % (24.0-44.0); MEAN CORPUSCULAR HEMOGLOBIN 30.1 pg (27.0-33.0); MONO % 6.5 % (2.0-8.0); NEUTROPHILS # 10.7 10^3/uL (1.5-8.5); NEUTROPHILS % 71.6 % (36.0-66.0); PLATELET COUNT, AUTOMATED 283 10^3/uL (150-450); RED BLOOD COUNT 5.09 10^6/uL (4.00-5.40); WHITE BLOOD COUNT 14.9 10^3/uL (4.0-10.0)
[2023-08-23 01:00] VITALS: BP 133/61; O2SAT 95
[2023-08-23 01:04] LABS: CREATININE FOR GFR 1.63 MG/DL (0.55-1.30); GLOMERULAR FILTRATION RATE 33.1 (>39); POTASSIUM SERUM 3.9 MMOL/L (3.5-5.1)
[2023-08-23] MEDS ORDERED: CEPH500C PO (04:06)
[2023-08-23] MEDS ORDERED: MEDR4PAK PO (04:06)
== END 2023-08-23 04:33 | disposition home or self-care (01) ==
LOC: EDBD 23:21 → M ED 23:21
DX: T50.905A Adverse effect of unspecified drugs, medicaments and biological substances, initial encounter (principal); I48.91 Unspecified atrial fibrillation; I25.119 Atherosclerotic heart disease of native coronary artery with unspecified angina pectoris; E11.9 Type 2 diabetes mellitus without complications; I10 Essential (primary) hypertension; Z88.0 Allergy status to penicillin; Z88.2 Allergy status to sulfonamides; Z88.1 Allergy status to other antibiotic agents; Z88.8 Allergy status to other drugs, medicaments and biological substances; Z91.040 Latex allergy status; Z79.1 Long term (current) use of non-steroidal anti-inflammatories (NSAID); Z79.2 Long term (current) use of antibiotics; Z79.4 Long term (current) use of insulin; Z79.810 Long term (current) use of selective estrogen receptor modulators (SERMs); Z79.899 Other long term (current) drug therapy
CPT/HCPCS: 80048; 85025; 93005; 94640; 96365; 96366; 96374; 96375; 99284; J1200; J2919

== ENCOUNTER → 2023-08-22 | Outpatient (REF) | payer MEDICARE | LOC: M SFHCADAM 14:39 | PROVIDERS: ATTEND Family Medicine | DX: M79.7 Fibromyalgia (principal) ==

== ENCOUNTER 2023-09-07 18:47 | Emergency (ER) | payer MEDICARE ==
[~2023-09-07] VITALS: Ht 172.7 cm; Wt 124.0 kg
[2023-09-07 18:47] VITALS: TEMP 98.8
[~2023-09-07 18:47] MED LIST changes: +CEPH500C PO; +MEDR4PAK PO
[2023-09-07 19:37] LABS: BASO # 0.1 10^3/uL (0.0-0.2); BASO % 0.6 % (0.0-1.0); EOS # 0.1 10^3/uL (0.0-0.5); EOS % 1.7 % (0.0-3.0); HEMOGLOBIN 14.8 g/dl (12.0-15.5); LYMPH # 1.7 10^3/uL (1.5-5.0); LYMPH % 21.3 % (24.0-44.0); MEAN CORPUSCULAR HEMOGLOBIN 30.2 pg (27.0-33.0); MEAN CORPUSCULAR HGB CONC 32.9 g/dl (32.0-36.5); MEAN CORPUSCULAR VOLUME 91.8 fl (80.0-96.0); MONO # 0.7 10^3/uL (0.0-0.8); MONO % 9.1 % (2.0-8.0); NEUTROPHILS # 5.4 10^3/uL (1.5-8.5); NEUTROPHILS % 67.1 % (36.0-66.0); PLATELET COUNT, AUTOMATED 225 10^3/uL (150-450); WHITE BLOOD COUNT 8.1 10^3/uL (4.0-10.0)
[2023-09-07 20:07] LABS: CK-MB VALUE MASS 2.3 NG/ML (<3.6)
[2023-09-07 20:09] LABS: CALCIUM LEVEL 10.6 MG/DL (8.3-10.6); CREATININE FOR GFR 1.21 MG/DL (0.55-1.30); GLOMERULAR FILTRATION RATE 46.7 (>39); MB/CK RELATIVE INDEX 1.84 (< OR =4)
[2023-09-07 21:27] LABS: C REACTIVE PROTEIN QUANTITATIV 1.3 MG/DL (<1.0); CK-MB VALUE MASS 2.3 NG/ML (<3.6)
[2023-09-07 22:00] LABS: MB/CK RELATIVE INDEX 1.65 (< OR =4)
[2023-09-07] MEDS: DOXYCYCLINE HYCLATE 100MG TABLET PO ONE (23:34)
[2023-09-07 23:47] VITALS: BP 162/68; O2SAT 94
[2023-09-07] MEDS ORDERED: DOXY-323 PO (23:54)
== END 2023-09-08 00:22 | disposition home or self-care (01) ==
LOC: M ED 18:47
DX: R07.9 Chest pain, unspecified (principal); R22.42 Localized swelling, mass and lump, left lower limb; I44.0 Atrioventricular block, first degree; I50.22 Chronic systolic (congestive) heart failure; I25.2 Old myocardial infarction; E11.9 Type 2 diabetes mellitus without complications; E03.9 Hypothyroidism, unspecified; K21.9 Gastro-esophageal reflux disease without esophagitis; Z88.8 Allergy status to other drugs, medicaments and biological substances; Z88.0 Allergy status to penicillin; Z88.1 Allergy status to other antibiotic agents; Z88.2 Allergy status to sulfonamides; Z91.040 Latex allergy status; Z79.1 Long term (current) use of non-steroidal anti-inflammatories (NSAID); Z79.2 Long term (current) use of antibiotics; Z79.4 Long term (current) use of insulin; Z79.810 Long term (current) use of selective estrogen receptor modulators (SERMs); Z79.899 Other long term (current) drug therapy

== ENCOUNTER → 2023-09-12 | Outpatient (REF) | payer MEDICARE ==
[~2023-09-12] MED LIST changes: +DOXY-323 PO
[2023-09-12 18:45] LABS: FREE T4 1.19 NG/DL (0.89-1.76); THYROID STIMULATING HORMONE 1.378 uIU/ML (0.55-4.78)
== END ==
LOC: M SFHCADAM 11:17
PROVIDERS: ATTEND Physician Assistant
DX: E03.9 Hypothyroidism, unspecified (principal)

== ENCOUNTER → 2023-10-17 | Outpatient (REF) | payer MEDICARE ==
[2023-10-17 18:31] LABS: HEMATOCRIT 45.7 % (36.0-47.0); HEMOGLOBIN 14.7 g/dl (12.0-15.5); MEAN CORPUSCULAR HEMOGLOBIN 29.9 pg (27.0-33.0); MEAN CORPUSCULAR HGB CONC 32.2 g/dl (32.0-36.5); MEAN CORPUSCULAR VOLUME 93.1 fl (80.0-96.0); PLATELET COUNT, AUTOMATED 291 10^3/uL (150-450); RED BLOOD COUNT 4.91 10^6/uL (4.00-5.40); WHITE BLOOD COUNT 8.3 10^3/uL (4.0-10.0)
[2023-10-17 19:04] LABS: APPEARANCE, URINE HAZY (CLEAR); BACTERIA, URINE AUTO 1+ (NEGATIVE); BILIRUBIN, URINE AUTO NEGATIVE (NEGATIVE); BLOOD, URINE BLOOD NEGATIVE (NEGATIVE); COLOR, URINE YELLOW (YELLOW); GLUCOSE, URINE (UA) AUTO NEGATIVE (NEGATIVE); HEMOGLOBIN A1c 5.5 % (4.0-6.0); KETONE, URINE AUTO NEGATIVE (NEGATIVE); LEUKOCYTE ESTERASE, URINE AUTO 1+ (NEGATIVE); MUCUS, URINE SMALL (NEGATIVE); NITRITE, URINE AUTO NEGATIVE (NEGATIVE); PROTEIN, URINE AUTO 1+ mg/dL (NEGATIVE); RBC, URINE AUTO 0 /HPF (0-3); SPECIFIC GRAVITY URINE AUTO 1.025 (1.002-1.035); SQUAMOUS EPITHELIAL CELL UR AU 3 /HPF (0-6); UROBILINOGEN, URINE AUTO 0.2 mg/dL (0.0-2.0); WBC, URINE AUTO 13 /HPF (0-3)
[2023-10-17 19:08] LABS: THYROID STIMULATING HORMONE 3.032 uIU/ML (0.55-4.78)
[2023-10-17 19:09] LABS: ALBUMIN 3.5 G/DL (3.2-5.2); BILIRUBIN,TOTAL 0.4 MG/DL (0.3-1.2); CREATININE FOR GFR 2.07 MG/DL (0.55-1.30); FREE T4 1.2 NG/DL (0.89-1.76); GLOMERULAR FILTRATION RATE 25.1 (>39); POTASSIUM SERUM 4.4 MMOL/L (3.5-5.1)
[2023-10-17 19:46] LABS: CREATININE, URINE 284.3 MG/DL; MAU/CREAT RATIO 36.5 MCG/MG (0.0-30.0)
== END ==
LOC: M SFHCADAM 14:11
PROVIDERS: ATTEND Family Medicine
DX: R30.0 Dysuria (principal); N39.0 Urinary tract infection, site not specified; G47.33 Obstructive sleep apnea (adult) (pediatric); M79.7 Fibromyalgia; E03.9 Hypothyroidism, unspecified; E11.621 Type 2 diabetes mellitus with foot ulcer

== ENCOUNTER → 2023-11-01 | Outpatient (CLI) | payer MEDICARE | LOC: M RAD 15:28 | PROVIDERS: ATTEND Family Medicine | DX: R10.31 Right lower quadrant pain (principal); R10.32 Left lower quadrant pain; G89.29 Other chronic pain; K44.9 Diaphragmatic hernia without obstruction or gangrene; K57.30 Diverticulosis of large intestine without perforation or abscess without bleeding; Z90.49 Acquired absence of other specified parts of digestive tract ==

== ENCOUNTER → 2023-11-21 | Outpatient (REF) | payer MEDICARE | LOC: M SFHCADAM 14:59 | PROVIDERS: ATTEND Physician Assistant | DX: R30.0 Dysuria (principal) ==

== ENCOUNTER → 2024-01-25 | Outpatient (REF) | payer MEDICARE ==
[~2024-01-25] MED LIST changes: -DOXY-323 PO; +DOXY-441 PO
[2024-01-25 16:02] LABS: APPEARANCE, URINE TURBID (CLEAR); BACTERIA, URINE AUTO 1+ (NEGATIVE); BILIRUBIN, URINE AUTO NEGATIVE (NEGATIVE); BLOOD, URINE BLOOD NEGATIVE (NEGATIVE); CALCIUM OXALATE CRYSTALS LARGE; COLOR, URINE AMBER (YELLOW); GLUCOSE, URINE (UA) AUTO NEGATIVE (NEGATIVE); KETONE, URINE AUTO NEGATIVE (NEGATIVE); LEUKOCYTE ESTERASE, URINE AUTO 3+ (NEGATIVE); MUCUS, URINE SMALL (NEGATIVE); NITRITE, URINE AUTO NEGATIVE (NEGATIVE); PROTEIN, URINE AUTO 2+ mg/dL (NEGATIVE); RBC, URINE AUTO 12 /HPF (0-3); SPECIFIC GRAVITY URINE AUTO 1.029 (1.002-1.035); SQUAMOUS EPITHELIAL CELL UR AU 0 /HPF (0-6); UROBILINOGEN, URINE AUTO 0.2 mg/dL (0.0-2.0); WBC, URINE AUTO TNTC /HPF (0-3)
[2024-01-27 11:42] LABS: Candida species NOT DETECTED (NOT DETECTED); Gardnerella vaginalis DETECTED (NOT DETECTED); Trichamonas vaginalis NOT DETECTED (NOT DETECTED)
== END ==
LOC: M SMT 15:00
PROVIDERS: ATTEND Specialist
DX: N89.8 Other specified noninflammatory disorders of vagina (principal); N39.0 Urinary tract infection, site not specified

== ENCOUNTER 2024-03-11 01:39 | Observation (INO) | payer MEDICARE ==
[~2024-03-11] VITALS: Ht 170.2 cm; Wt 117.0 kg
[2024-03-11 02:29] LABS: BASO # 0.1 10^3/uL (0.0-0.2); BASO % 0.8 % (0.0-1.0); EOS # 0.1 10^3/uL (0.0-0.5); EOS % 1.5 % (0.0-3.0); HEMATOCRIT 46.9 % (36.0-47.0); HEMOGLOBIN 15.3 g/dl (12.0-15.5); LYMPH # 1.5 10^3/uL (1.5-5.0); LYMPH % 17.7 % (24.0-44.0); MEAN CORPUSCULAR HEMOGLOBIN 29.6 pg (27.0-33.0); MEAN CORPUSCULAR HGB CONC 32.6 g/dl (32.0-36.5); MEAN CORPUSCULAR VOLUME 90.7 fl (80.0-96.0); MONO # 0.7 10^3/uL (0.0-0.8); NEUTROPHILS # 6.2 10^3/uL (1.5-8.5); NEUTROPHILS % 71.7 % (36.0-66.0); PLATELET COUNT, AUTOMATED 257 10^3/uL (150-450); RED BLOOD COUNT 5.17 10^6/uL (4.00-5.40); WHITE BLOOD COUNT 8.6 10^3/uL (4.0-10.0)
[2024-03-11 02:47] LABS: CALCIUM LEVEL 10.9 MG/DL (8.3-10.6); CK-MB VALUE MASS 1.3 NG/ML (<3.6); CREATININE FOR GFR 1.59 MG/DL (0.55-1.30); POTASSIUM SERUM 4.4 MMOL/L (3.5-5.1)
[2024-03-11 02:49] LABS: MB/CK RELATIVE INDEX 2.4 (< OR =4)
[2024-03-11 03:13] LABS: PARTIAL THROMBOPLASTIN TIME 23.3 SECONDS (24.8-34.2); PROTHROMBIN TIME 13.5 SECONDS (12.5-14.5)
[2024-03-11] MEDS ORDERED: GLUCAGON INJ 1MG VIAL SC PRN (06:00)
[2024-03-11] MEDS ORDERED: GLUCOSE 4 GM CHEW PO PRN (06:00)
[2024-03-11] MEDS ORDERED: DEXTROSE 50% 50ML SYRINGE IV PRN (06:00)
[2024-03-11] MEDS: INSULIN LISPRO (NovoLOG) PER UNIT SC SCH ×2 (07:30→20:30)
[2024-03-11] MEDS: cefTRIAXone SOD 1 GM in DEXTROSE 5% (D5W) ADV/MINI-BAG 50 ML IV ONE (08:05)
[2024-03-11 09:32] LABS: BASO # 0.1 10^3/uL (0.0-0.2); BASO % 0.6 % (0.0-1.0); EOS # 0.2 10^3/uL (0.0-0.5); EOS % 1.9 % (0.0-3.0); HEMATOCRIT 43.8 % (36.0-47.0); HEMOGLOBIN 14.4 g/dl (12.0-15.5); LYMPH # 2.6 10^3/uL (1.5-5.0); LYMPH % 30.3 % (24.0-44.0); MEAN CORPUSCULAR HEMOGLOBIN 29.8 pg (27.0-33.0); MEAN CORPUSCULAR HGB CONC 32.9 g/dl (32.0-36.5); MEAN CORPUSCULAR VOLUME 90.5 fl (80.0-96.0); MONO # 0.7 10^3/uL (0.0-0.8); MONO % 7.7 % (2.0-8.0); NEUTROPHILS % 59.3 % (36.0-66.0); PLATELET COUNT, AUTOMATED 239 10^3/uL (150-450); RED BLOOD COUNT 4.84 10^6/uL (4.00-5.40); WHITE BLOOD COUNT 8.5 10^3/uL (4.0-10.0)
[2024-03-11] MEDS ORDERED: ATEN25TA PO (09:43)
[2024-03-11] MEDS ORDERED: MYRB50TA PO (09:43)
[2024-03-11] MEDS ORDERED: CALC1CAP31 PO (09:43)
[2024-03-11] MEDS ORDERED: INSUDET SC ×2 (09:43)
[2024-03-11] MEDS ORDERED: HOME MED LIST COMPLETE! XX SCH (09:45)
[2024-03-11 09:49] LABS: CALCIUM LEVEL 10.8 MG/DL (8.3-10.6); CREATININE FOR GFR 1.45 MG/DL (0.55-1.30); GLOMERULAR FILTRATION RATE 37.8 (>39); MAGNESIUM LEVEL 1.9 MG/DL (1.8-2.4); POTASSIUM SERUM 3.8 MMOL/L (3.5-5.1)
[2024-03-11] MEDS: LEVEMIR (INSULIN DETEMIR) 1 UNITS/0.01ML SC SCH (09:55)
[2024-03-11] MEDS ORDERED: NITROGLYCERIN 0.4MG SUBL TABLET SL PRN (09:55)
[2024-03-11] MEDS: MULTIVITAMINS/MINERALS THERAP 1 TAB PO SCH (10:13)
[2024-03-11] MEDS: ASPIRIN 81MG ENTERIC TABLET PO SCH (10:14)
[2024-03-11] MEDS: OMEPRAZOLE 20MG CAP PO SCH (10:14)
[2024-03-11] MEDS: SIMVASTATIN 40 MG TAB PO SCH (10:14)
[2024-03-11 10:16] VITALS: BP 128/69
[2024-03-11] MEDS: atenoloL 25 MG TAB PO SCH (10:16)
[2024-03-11] MEDS: BACLOFEN 10 MG TAB PO SCH (10:17)
[2024-03-11] MEDS: FEXOFENADINE 60MG TAB PO SCH (10:17)
[2024-03-11] MEDS: LACTOBACILLUS ACIDOPHILUS CAP (BACID) PO SCH (10:26)
[2024-03-11 11:07] LABS: BILIRUBIN,DIRECT 0.1 MG/DL (<0.4); BILIRUBIN,TOTAL 0.3 MG/DL (0.3-1.2); CHOLESTEROL RISK RATIO 3.1 (<5); HDL CHOLESTEROL 35.7 MG/DL (>40); LDL CHOLESTEROL 52.1 MG/DL (<100); NON-HDL-C 75.3 MG/DL; TOTAL PROTEIN 6.7 G/DL (5.7-8.2)
[2024-03-11 11:08] LABS: THYROID STIMULATING HORMONE 2.412 uIU/ML (0.55-4.78)
[2024-03-11 11:09] LABS: FREE T4 1.21 NG/DL (0.89-1.76)
[2024-03-11] MEDS: PENTOSAN POLYSULFATE SODIUM 100 MG CAP (ELMIRON) PO SCH (11:26)
[2024-03-11] MEDS: CALCIUM/VITAMIN D 500 MG TAB PO SCH (11:27)
[2024-03-11] MEDS: LEVOTHYROXINE 150MCG TABLET (0.15MG) PO SCH (11:27)
[2024-03-11 11:43] VITALS: BP 117/56; TEMP 97.8; O2SAT 93
[2024-03-11 11:58] LABS: HEMOGLOBIN A1c 5.4 % (4.0-6.0)
[2024-03-11] MEDS: HEPARIN SOD (PORCINE) 5000UNITS/ML 1ML VIAL/SYRINGE SC SCH (13:05)
[2024-03-11 15:31] VITALS: BP 133/65; TEMP 97.6; O2SAT 97
[2024-03-11 18:00] VITALS: BP 127/66; TEMP 97.2; O2SAT 95
[2024-03-11] MEDS ORDERED: ACETAMINOPHEN 325 MG TAB PO PRN (19:55)
[2024-03-11 20:00] VITALS: BP 124/62; TEMP 96.8; O2SAT 92
[2024-03-11] MEDS ORDERED: LEVEMIR (INSULIN DETEMIR) 1 UNITS/0.01ML SC SCH (21:00)
[2024-03-11] MEDS: ACETAMINOPHEN 325 MG TAB PO PRN (21:47)
[2024-03-11] MEDS: CALCITRIOL 0.25 MCG CAP (S0169) PO SCH (21:48)
[2024-03-11] MEDS: traZODone 100 MG TAB PO SCH (21:48)
[2024-03-11] MEDS: POLYVINYL ALCOHOL OPHTH SOLN 15ML (LIQUITEARS) OU PRN (21:49)
[2024-03-12 04:00] VITALS: BP 125/61; TEMP 97; O2SAT 95
[2024-03-12] MEDS: cefTRIAXone SOD 1 GM in DEXTROSE 5% (D5W) ADV/MINI-BAG 50 ML IV SCH (05:25)
[2024-03-12 06:14] LABS: BASO # 0.1 10^3/uL (0.0-0.2); BASO % 0.9 % (0.0-1.0); EOS # 0.3 10^3/uL (0.0-0.5); EOS % 3.7 % (0.0-3.0); HEMATOCRIT 45.5 % (36.0-47.0); HEMOGLOBIN 14.7 g/dl (12.0-15.5); LYMPH # 2.8 10^3/uL (1.5-5.0); LYMPH % 41.4 % (24.0-44.0); MEAN CORPUSCULAR HEMOGLOBIN 29.1 pg (27.0-33.0); MEAN CORPUSCULAR HGB CONC 32.3 g/dl (32.0-36.5); MEAN CORPUSCULAR VOLUME 90.1 fl (80.0-96.0); MONO # 0.4 10^3/uL (0.0-0.8); NEUTROPHILS # 3.2 10^3/uL (1.5-8.5); NEUTROPHILS % 47.9 % (36.0-66.0); PLATELET COUNT, AUTOMATED 242 10^3/uL (150-450); RED BLOOD COUNT 5.05 10^6/uL (4.00-5.40); WHITE BLOOD COUNT 6.8 10^3/uL (4.0-10.0)
[2024-03-12 06:41] LABS: CALCIUM LEVEL 11.1 MG/DL (8.3-10.6); CREATININE FOR GFR 1.22 MG/DL (0.55-1.30); GLOMERULAR FILTRATION RATE 46.1 (>39); POTASSIUM SERUM 4.2 MMOL/L (3.5-5.1)
[2024-03-12 08:00] VITALS: BP 121/72; TEMP 97; O2SAT 97
[2024-03-12] MEDS ORDERED: CEFD1CAP9 PO (08:41)
[2024-03-12] MEDS ORDERED: CALCIUM/VITAMIN D 500 MG TAB PO SCH (10:18)
[2024-03-12] MEDS: CALCIUM/VITAMIN D 500 MG TAB PO SCH (10:38)
[2024-03-12] MEDS: CEFDINIR 300 MG CAP (OMNICEF) PO ONE (11:40)
[2024-03-12] MEDS ORDERED: CEFDINIR 300 MG CAP (OMNICEF) PO SCH (21:00)
== END 2024-03-12 15:43 | disposition home health service (06) ==
LOC: M ED 01:39 → EDBD 01:39 → M ED INP 05:02 → INTOOBSV 05:02 → M MSPAV 17:52
PROVIDERS: ADMIT Family Medicine; ATTEND Internal Medicine
DX: R55 Syncope and collapse (principal); S00.03XA Contusion of scalp, initial encounter; W18.11XA Fall from or off toilet without subsequent striking against object, initial encounter; Y92.013 Bedroom of single-family (private) house as the place of occurrence of the external cause; Y93.9 Activity, unspecified; Y99.8 Other external cause status; N39.0 Urinary tract infection, site not specified; B96.20 Unspecified Escherichia coli [E. coli] as the cause of diseases classified elsewhere; I25.2 Old myocardial infarction; I48.0 Paroxysmal atrial fibrillation; I44.0 Atrioventricular block, first degree; G47.33 Obstructive sleep apnea (adult) (pediatric); E03.9 Hypothyroidism, unspecified; E11.9 Type 2 diabetes mellitus without complications; N18.30 Chronic kidney disease, stage 3 unspecified; N39.41 Urge incontinence; H81.09 Meniere's disease, unspecified ear; F32.A Depression, unspecified; K21.9 Gastro-esophageal reflux disease without esophagitis; E78.5 Hyperlipidemia, unspecified; J30.1 Allergic rhinitis due to pollen; Z90.49 Acquired absence of other specified parts of digestive tract; Z96.653 Presence of artificial knee joint, bilateral; Z95.5 Presence of coronary angioplasty implant and graft; Z90.79 Acquired absence of other genital organ(s); Z82.3 Family history of stroke; Z80.52 Family history of malignant neoplasm of bladder; Z88.1 Allergy status to other antibiotic agents; Z88.5 Allergy status to narcotic agent; Z88.0 Allergy status to penicillin; Z88.2 Allergy status to sulfonamides; Z88.8 Allergy status to other drugs, medicaments and biological substances; Z91.040 Latex allergy status; Z79.899 Other long term (current) drug therapy; Z79.82 Long term (current) use of aspirin; Z79.890 Hormone replacement therapy; Z79.4 Long term (current) use of insulin
CPT/HCPCS: 36415; 70450; 71045; 72125; 80048; 80061; 80076; 81001; 82550; 82553; 83036; 83735; 83880; 84439; 84443; 84484; 85025; 85610; 85730; 86850; 86900; 86901; 87088; 87186; 87486; 87581; 87633; 87798; 93005; 93306; 94660; 96365; 96372; 96376; 97161; 99285; G0378; J0696; J1815

== ENCOUNTER → 2024-05-07 | Outpatient (CLI) | payer MEDICARE ==
[~2024-05-07] MED LIST changes: +CEFD1CAP9 PO; +INSUDET SC; +MYRB50TA PO
[2024-05-07 18:04] LABS: APPEARANCE, URINE CLOUDY (CLEAR); BACTERIA, URINE AUTO 1+ (NEGATIVE); BILIRUBIN, URINE AUTO NEGATIVE (NEGATIVE); BLOOD, URINE BLOOD NEGATIVE (NEGATIVE); COLOR, URINE YELLOW (YELLOW); GLUCOSE, URINE (UA) AUTO NEGATIVE (NEGATIVE); KETONE, URINE AUTO NEGATIVE (NEGATIVE); LEUKOCYTE ESTERASE, URINE AUTO TRACE (NEGATIVE); MUCUS, URINE SMALL (NEGATIVE); NITRITE, URINE AUTO NEGATIVE (NEGATIVE); PROTEIN, URINE AUTO 1+ mg/dL (NEGATIVE); RBC, URINE AUTO 4 /HPF (0-3); SPECIFIC GRAVITY URINE AUTO 1.023 (1.002-1.035); SQUAMOUS EPITHELIAL CELL UR AU 3 /HPF (0-6); UROBILINOGEN, URINE AUTO 0.2 mg/dL (0.0-2.0); WBC, URINE AUTO 14 /HPF (0-3)
[2024-05-07 18:05] LABS: HEMATOCRIT 46.1 % (36.0-47.0); HEMOGLOBIN 15.1 g/dl (12.0-15.5); MEAN CORPUSCULAR HEMOGLOBIN 29.8 pg (27.0-33.0); MEAN CORPUSCULAR HGB CONC 32.8 g/dl (32.0-36.5); MEAN CORPUSCULAR VOLUME 91.1 fl (80.0-96.0); PLATELET COUNT, AUTOMATED 286 10^3/uL (150-450); RED BLOOD COUNT 5.06 10^6/uL (4.00-5.40); WHITE BLOOD COUNT 6.6 10^3/uL (4.0-10.0)
[2024-05-07 18:15] LABS: CALCIUM LEVEL 11.3 MG/DL (8.3-10.6); CREATININE FOR GFR 1.35 MG/DL (0.55-1.30); POTASSIUM SERUM 4.6 MMOL/L (3.5-5.1)
[2024-05-07 18:36] LABS: HEMOGLOBIN A1c 5.6 % (4.0-6.0)
== END ==
LOC: M WUC 13:30
PROVIDERS: ATTEND Physician Assistant Medical
DX: M25.511 Pain in right shoulder (principal); M25.512 Pain in left shoulder; N32.81 Overactive bladder; E11.59 Type 2 diabetes mellitus with other circulatory complications; N18.4 Chronic kidney disease, stage 4 (severe); M19.011 Primary osteoarthritis, right shoulder; M19.012 Primary osteoarthritis, left shoulder

== ENCOUNTER → 2024-07-14 | Outpatient (REF) | payer MEDICARE ==
[2024-07-14 17:50] LABS: APPEARANCE, URINE HAZY (CLEAR); BACTERIA, URINE AUTO NEGATIVE (NEGATIVE); BILIRUBIN, URINE AUTO NEGATIVE (NEGATIVE); BLOOD, URINE BLOOD NEGATIVE (NEGATIVE); CALCIUM OXALATE CRYSTALS LARGE; COLOR, URINE YELLOW (YELLOW); GLUCOSE, URINE (UA) AUTO NEGATIVE (NEGATIVE); KETONE, URINE AUTO NEGATIVE (NEGATIVE); LEUKOCYTE ESTERASE, URINE AUTO NEGATIVE (NEGATIVE); MUCUS, URINE SMALL (NEGATIVE); NITRITE, URINE AUTO NEGATIVE (NEGATIVE); PROTEIN, URINE AUTO NEGATIVE (NEGATIVE); RBC, URINE AUTO 0 /HPF (0-3); SPECIFIC GRAVITY URINE AUTO 1.019 (1.002-1.035); SQUAMOUS EPITHELIAL CELL UR AU 1 /HPF (0-6); UROBILINOGEN, URINE AUTO 0.2 mg/dL (0.0-2.0); WBC, URINE AUTO 0 /HPF (0-3)
== END ==
LOC: M SMT 16:59
PROVIDERS: ATTEND Specialist
DX: N39.0 Urinary tract infection, site not specified (principal)

== ENCOUNTER 2024-07-23 15:35 | Emergency (ER) | payer MEDICARE ==
[~2024-07-23] VITALS: Ht 172.7 cm; Wt 113.2 kg
[2024-07-23 19:32] VITALS: BP 115/65; TEMP 97.3; O2SAT 96
[2024-07-23] MEDS ORDERED: CLIN150C17 PO (22:07)
== END 2024-07-23 22:16 | disposition home or self-care (01) ==
LOC: M ED 15:35
DX: L03.213 Periorbital cellulitis (principal); K21.9 Gastro-esophageal reflux disease without esophagitis; M79.7 Fibromyalgia; K76.0 Fatty (change of) liver, not elsewhere classified; Z88.0 Allergy status to penicillin; Z88.1 Allergy status to other antibiotic agents; Z88.2 Allergy status to sulfonamides; Z88.6 Allergy status to analgesic agent; Z79.1 Long term (current) use of non-steroidal anti-inflammatories (NSAID); Z79.2 Long term (current) use of antibiotics; Z79.899 Other long term (current) drug therapy; Z79.810 Long term (current) use of selective estrogen receptor modulators (SERMs)

== ENCOUNTER 2024-08-09 21:15 | Emergency (ER) | payer MEDICARE ==
[~2024-08-09] VITALS: Ht 172.7 cm; Wt 110.0 kg
[~2024-08-09 21:15] MED LIST changes: +CLIN150C17 PO
[2024-08-09 21:30] VITALS: TEMP 97.8
[2024-08-10 01:57] LABS: BASO # 0.1 10^3/uL (0.0-0.2); BASO % 1.1 % (0.0-1.0); EOS # 0.4 10^3/uL (0.0-0.5); EOS % 5.1 % (0.0-3.0); HEMATOCRIT 42.2 % (36.0-47.0); HEMOGLOBIN 13.7 g/dl (12.0-15.5); LYMPH # 2.7 10^3/uL (1.5-5.0); LYMPH % 34.2 % (24.0-44.0); MEAN CORPUSCULAR HEMOGLOBIN 29.5 pg (27.0-33.0); MEAN CORPUSCULAR HGB CONC 32.5 g/dl (32.0-36.5); MEAN CORPUSCULAR VOLUME 90.9 fl (80.0-96.0); MONO # 0.6 10^3/uL (0.0-0.8); MONO % 7.8 % (2.0-8.0); NEUTROPHILS # 4.1 10^3/uL (1.5-8.5); NEUTROPHILS % 51.7 % (36.0-66.0); PLATELET COUNT, AUTOMATED 238 10^3/uL (150-450); RED BLOOD COUNT 4.64 10^6/uL (4.00-5.40); WHITE BLOOD COUNT 7.9 10^3/uL (4.0-10.0)
[2024-08-10] MEDS: IPRATROPIUM 0.5MG/ALBUTEROL 2.5MG INH SOL UD 3ML NEB ONE (02:16)
[2024-08-10 02:20] LABS: ALBUMIN 3.3 G/DL (3.2-5.2); BILIRUBIN,DIRECT 0.1 MG/DL (<0.4); BILIRUBIN,TOTAL 0.4 MG/DL (0.3-1.2); CALCIUM LEVEL 10.8 MG/DL (8.3-10.6); CK-MB VALUE MASS 1.6 NG/ML (<3.6); CREATININE FOR GFR 1.89 MG/DL (0.55-1.30); GLOMERULAR FILTRATION RATE 27.9 (>39); MB/CK RELATIVE INDEX 4.32 (< OR =4); POTASSIUM SERUM 3.7 MMOL/L (3.5-5.1); TOTAL PROTEIN 6.4 G/DL (5.7-8.2)
[2024-08-10 04:30] VITALS: O2SAT 91
[2024-08-10 04:31] VITALS: BP 132/63
[2024-08-10 04:38] LABS: CK-MB VALUE MASS 1.8 NG/ML (<3.6)
[2024-08-10] MEDS: ACETAMINOPHEN 325 MG TAB PO ONE (04:44)
[2024-08-10 04:45] LABS: MB/CK RELATIVE INDEX 4.18 (< OR =4)
== END 2024-08-10 05:51 | disposition home or self-care (01) ==
LOC: M ED 21:15
DX: R06.00 Dyspnea, unspecified (principal); M79.7 Fibromyalgia; R00.1 Bradycardia, unspecified; I44.0 Atrioventricular block, first degree; I50.22 Chronic systolic (congestive) heart failure; I25.119 Atherosclerotic heart disease of native coronary artery with unspecified angina pectoris; E11.9 Type 2 diabetes mellitus without complications; I11.0 Hypertensive heart disease with heart failure; E03.9 Hypothyroidism, unspecified; N18.9 Chronic kidney disease, unspecified; Z88.0 Allergy status to penicillin; Z88.1 Allergy status to other antibiotic agents; Z88.2 Allergy status to sulfonamides; Z88.6 Allergy status to analgesic agent; Z79.1 Long term (current) use of non-steroidal anti-inflammatories (NSAID); Z79.2 Long term (current) use of antibiotics; Z79.899 Other long term (current) drug therapy

== ENCOUNTER 2024-12-04 15:16 | Emergency (ER) | payer MEDICARE ==
[~2024-12-04] VITALS: Ht 175.3 cm; Wt 97.9 kg
[2024-12-04 15:28] VITALS: TEMP 97.3
[2024-12-04] MEDS: POLYVINYL ALCOHOL OPHTH SOLN 15ML (LIQUITEARS) OS STA (16:29)
[2024-12-04] MEDS: TETANUS/DIPHTH/ACEL. PERTUSSIS 0.5 ML SYR IM.IMMUN ONE (17:31)
[2024-12-04] MEDS: ACETAMINOPHEN 500 MG TAB PO ONE (17:31)
[2024-12-04 19:01] VITALS: BP 159/70
[2024-12-04 19:15] LABS: KETONE, URINE AUTO RFX NEGATIVE (NEGATIVE); MUCUS, URINE RFX SMALL (NEGATIVE); NITRITE, URINE AUTO RFX NEGATIVE (NEGATIVE); RBC, URINE AUTO RFX 1 /HPF (0-3); SQUAM EPITHELIAL CELL UR AURFX 1 /HPF (0-6); WBC, URINE AUTO RFX 3 /HPF (0-3)
[2024-12-04 19:16] VITALS: O2SAT 94
[2024-12-04 19:16] LABS: LEUKOCYTE ESTERASE UR AUTO RFX 1+ (NEGATIVE)
[2024-12-04] MEDS ORDERED: BACI500O8 TOP (19:51)
== END 2024-12-04 21:03 | disposition home or self-care (01) ==
LOC: EDBD 15:16 → M ED 15:16
DX: S00.03XA Contusion of scalp, initial encounter (principal); S80.02XA Contusion of left knee, initial encounter; Y92.019 Unspecified place in single-family (private) house as the place of occurrence of the external cause; Y93.9 Activity, unspecified; Y99.9 Unspecified external cause status; W10.8XXA Fall (on) (from) other stairs and steps, initial encounter; Z23 Encounter for immunization; M18.0 Bilateral primary osteoarthritis of first carpometacarpal joints; M50.30 Other cervical disc degeneration, unspecified cervical region; Z88.0 Allergy status to penicillin; Z88.1 Allergy status to other antibiotic agents; Z88.2 Allergy status to sulfonamides; Z88.6 Allergy status to analgesic agent; Z79.1 Long term (current) use of non-steroidal anti-inflammatories (NSAID); Z79.2 Long term (current) use of antibiotics; Z79.899 Other long term (current) drug therapy; Z79.810 Long term (current) use of selective estrogen receptor modulators (SERMs)

== ENCOUNTER → 2024-12-11 | Outpatient (REF) | payer MEDICARE ==
[~2024-12-11] MED LIST changes: +BACI500O8 TOP
[2024-12-11 17:37] LABS: PLATELET COUNT, AUTOMATED 244 10^3/uL (150-450)
[2024-12-11 17:44] LABS: C REACTIVE PROTEIN QUANTITATIV < 0.50 MG/DL (<1.0)
[2024-12-11 17:46] LABS: ALT/SGPT 25 U/L (7.0-40); AST/SGOT 24 U/L (<34); CARBON DIOXIDE LEVEL 32 MMOL/L (20-31); CHLORIDE LEVEL 102 MMOL/L (98-107); CHOLESTEROL LEVEL 132 MG/DL (<200); CHOLESTEROL RISK RATIO 2.69 (<5); CREATININE FOR GFR 1.27 MG/DL (0.55-1.30); GLOMERULAR FILTRATION RATE 44.9 (>39); LDL CHOLESTEROL 47.4 MG/DL (<100); NON-HDL-C 83.0 MG/DL; POTASSIUM SERUM 3.9 MMOL/L (3.5-5.1); SODIUM LEVEL 144 MMOL/L (136-145); TRIGLYCERIDES LEVEL 178 MG/DL (<150)
[2024-12-11 17:59] LABS: CALCIUM LEVEL 11.4 MG/DL (8.3-10.6)
[2024-12-11 18:00] LABS: ESTIMATED AVERAGE GLUCOSE 117.0 MG/DL (60-110)
== END ==
LOC: M SFHCADAM 15:12
PROVIDERS: ATTEND Family Medicine
DX: N39.0 Urinary tract infection, site not specified (principal); I10 Essential (primary) hypertension; E11.59 Type 2 diabetes mellitus with other circulatory complications; E78.5 Hyperlipidemia, unspecified; I50.30 Unspecified diastolic (congestive) heart failure; Z87.39 Personal history of other diseases of the musculoskeletal system and connective tissue

== ENCOUNTER → 2024-12-19 | Outpatient (REF) | payer MEDICARE | LOC: M SFHCLERA 17:20 | DX: R30.0 Dysuria (principal) ==

== ENCOUNTER → 2025-01-20 | Outpatient (CLI) | payer MEDICARE | LOC: M ADAMS 11:16 | PROVIDERS: ATTEND Family Medicine | DX: M25.552 Pain in left hip (principal); M16.12 Unilateral primary osteoarthritis, left hip ==

== ENCOUNTER → 2025-02-09 | Outpatient (REF) | payer MEDICARE ==
[2025-02-09 17:53] LABS: APPEARANCE, URINE HAZY (CLEAR); BACTERIA, URINE AUTO NEGATIVE (NEGATIVE); BILIRUBIN, URINE AUTO NEGATIVE (NEGATIVE); BLOOD, URINE BLOOD NEGATIVE (NEGATIVE); CALCIUM OXALATE CRYSTALS MODERATE; GLUCOSE, URINE (UA) AUTO NEGATIVE (NEGATIVE); KETONE, URINE AUTO NEGATIVE (NEGATIVE); LEUKOCYTE ESTERASE, URINE AUTO NEGATIVE (NEGATIVE); NITRITE, URINE AUTO NEGATIVE (NEGATIVE); PROTEIN, URINE AUTO 1+ mg/dL (NEGATIVE); RBC, URINE AUTO 0 /HPF (0-3); SPECIFIC GRAVITY URINE AUTO 1.026 (1.002-1.035); SQUAMOUS EPITHELIAL CELL UR AU 2 /HPF (0-6); UROBILINOGEN, URINE AUTO 0.2 mg/dL (0.0-2.0); WBC, URINE AUTO 0 /HPF (0-3)
== END ==
LOC: M SMT 16:58
PROVIDERS: ATTEND Nurse Practitioner Family
DX: N39.41 Urge incontinence (principal)

== ENCOUNTER 2025-02-24 16:46 | Emergency (ER) | payer MEDICARE ==
[~2025-02-24] VITALS: Ht 175.3 cm; Wt 109.5 kg
[~2025-02-24 16:46] MED LIST changes: -FLAX100012 PO; +FLAX10003 PO
[2025-02-24 17:13] LABS: BASO # 0.0 10^3/uL (0.0-0.2); BASO % 0.9 % (0.0-1.0); EOS # 0.2 10^3/uL (0.0-0.5); EOS % 3.3 % (0.0-3.0); LYMPH # 1.5 10^3/uL (1.5-5.0); LYMPH % 33.6 % (24.0-44.0); MONO # 0.4 10^3/uL (0.0-0.8); MONO % 8.1 % (2.0-8.0); NEUTROPHILS # 2.5 10^3/uL (1.5-8.5); NEUTROPHILS % 54.1 % (36.0-66.0); PLATELET COUNT, AUTOMATED 210 10^3/uL (150-450)
[2025-02-24 19:26] LABS: ALT/SGPT 23.0 U/L (7.0-40); AST/SGOT 23.0 U/L (<34); CALCIUM LEVEL 10.3 MG/DL (8.3-10.6); CARBON DIOXIDE LEVEL 33.0 MMOL/L (20-31); CHLORIDE LEVEL 105.0 MMOL/L (98-107); CREATININE FOR GFR 1.12 MG/DL (0.55-1.30); GLOMERULAR FILTRATION RATE 52.3 (>39); POTASSIUM SERUM 4.1 MMOL/L (3.5-5.1); SODIUM LEVEL 145.0 MMOL/L (136-145)
[2025-02-24] MEDS: NS (Normal Saline) 0.9% 1,000 ML IV ONE (19:33)
[2025-02-24] MEDS: prednisoLONE ACET 1% OPHTH SUSP 5ML OS ONE (20:33)
[2025-02-24 22:00] VITALS: BP 166/77; O2SAT 96
[2025-02-24] MEDS ORDERED: ATEN25TA PO (22:01)
[2025-02-24 22:05] VITALS: BP 166/77
[2025-02-24 22:20] VITALS: TEMP 97.6
== END 2025-02-24 22:22 | disposition home or self-care (01) ==
LOC: M ED 16:46 → EDBD 16:46 → M ED 22:22
DX: I48.91 Unspecified atrial fibrillation (principal); R00.2 Palpitations; I44.0 Atrioventricular block, first degree; I25.119 Atherosclerotic heart disease of native coronary artery with unspecified angina pectoris; I25.2 Old myocardial infarction; I50.22 Chronic systolic (congestive) heart failure; I11.0 Hypertensive heart disease with heart failure; E78.5 Hyperlipidemia, unspecified; G47.33 Obstructive sleep apnea (adult) (pediatric); Z88.0 Allergy status to penicillin; Z88.1 Allergy status to other antibiotic agents; Z88.2 Allergy status to sulfonamides; Z88.6 Allergy status to analgesic agent; Z88.8 Allergy status to other drugs, medicaments and biological substances; Z79.1 Long term (current) use of non-steroidal anti-inflammatories (NSAID); Z79.2 Long term (current) use of antibiotics; Z79.899 Other long term (current) drug therapy; Z79.810 Long term (current) use of selective estrogen receptor modulators (SERMs)

== ENCOUNTER → 2025-03-12 | Outpatient (REF) | payer MEDICARE | LOC: M SFHCADAM 15:33 | PROVIDERS: ATTEND Family Medicine | DX: Z53.9 Procedure and treatment not carried out, unspecified reason (principal) ==

== ENCOUNTER → 2025-03-20 | Outpatient (CLI) | payer MEDICARE ==
[2025-03-20 17:41] LABS: PLATELET COUNT, AUTOMATED 255 10^3/uL (150-450)
[2025-03-20 17:45] LABS: ALT/SGPT 35.0 U/L (7.0-40); AST/SGOT 27.0 U/L (<34); CALCIUM LEVEL 10.7 MG/DL (8.3-10.6); CARBON DIOXIDE LEVEL 32.0 MMOL/L (20-31); CHLORIDE LEVEL 104.0 MMOL/L (98-107); CREATININE FOR GFR 1.18 MG/DL (0.55-1.30); FREE T4 1.41 NG/DL (0.89-1.76); GLOMERULAR FILTRATION RATE 48.8 (>39); MAGNESIUM LEVEL 2.0 MG/DL (1.8-2.4); POTASSIUM SERUM 4.6 MMOL/L (3.5-5.1); SODIUM LEVEL 144.0 MMOL/L (136-145)
[2025-03-20 18:07] LABS: ESTIMATED AVERAGE GLUCOSE 123.0 MG/DL (60-110)
== END ==
LOC: M PLALAB 13:32
PROVIDERS: ATTEND Family Medicine
DX: E11.59 Type 2 diabetes mellitus with other circulatory complications (principal); N18.32 Chronic kidney disease, stage 3b; I48.0 Paroxysmal atrial fibrillation; N39.41 Urge incontinence